=== PATIENT | male | born 1940 | race Caucasian/White ===

== ENCOUNTER 2016-06-11 13:41 | Inpatient (IN) | payer MEDICARE, BC ==
[2016-06-11] MEDS ORDERED: IBUPROFEN 600 MG TABLET PO ONE (14:38)
--- NOTE | 2016-06-11 14:39 | ER Document Report ---
ED Fall - General Chief Complaint: Fall Injury Stated Complaint: FELL/LEG PAIN Time seen by provider: 14:38 Mode of Arrival: Wheelchair Information source: Relative - TRAVEL OUTSIDE OF THE [place] IN LAST 30 DAYS: No - HPI Patient complains to provider of: slip and fall. left hip pain Occurred: Just prior to arrival Where: Home Context: Slipped Associated symptoms: None Location of injury/pain: Hip Quality of pain: Achy Severity: Moderate Pain Level: 3 Notes: Patient is a 76 y/o male - Related data Allergies/Adverse Reactions: codeine [Codeine] Allergy (Intermediate, Verified 06/11/16 13:57) severe N&V morphine [Morphine] Allergy (Intermediate, Verified 06/11/16 13:57) Hallucinations Past Medical History - Social History Patient has suicidal ideation: No Patient has homicidal ideation: No - Past Medical History Cardiac Medical History: Reports: Hx Hypertension - meds x 4 years Denies: Hx Coronary Artery Disease, Hx Heart Attack Pulmonary Medical History: Denies: Hx Asthma, Hx Bronchitis, Hx COPD, Hx Pneumonia Neurological Medical History: Denies: Hx Cerebrovascular Accident, Hx Seizures Renal/ Medical History: Denies: Hx Peritoneal Dialysis Musculoskeltal Medical History: Reports Hx Arthritis - back Past Surgical History: Reports: Hx Pacemaker - 2008 - Immunizations Hx Diphtheria, Pertussis, Tetanus Vaccination: Yes - unsure of date Physical Exam - Vital signs Vitals: Pulse Resp BP Pulse Ox 64 18 93/62 L 95 06/11/16 13:55 06/11/16 13:55 06/11/16 13:55 06/11/16 13:55 Course - Vital Signs Vital signs: Temp Pulse Resp BP Pulse Ox 64 18 93/62 L 95 06/11/16 13:55 06/11/16 13:55 06/11/16 13:55 06/11/16 13:55
--- NOTE | 2016-06-11 15:01 | ER Document Report ---
ED Medical Screen (RME) - General Chief Complaint: Fall Injury Stated Complaint: FELL/LEG PAIN Time seen by provider: 15:01 Mode of Arrival: Wheelchair Information source: Relative TRAVEL OUTSIDE OF THE [place] IN LAST 30 DAYS: No - HPI Patient complains to provider of: slip and fall at home, left hip pain Onset: Just prior to arrival Onset/Duration: Sudden Severity: Moderate Exacerbated by: Movement Similar symptoms previously: No Recently seen / treated by doctor: No - Related Data Allergies/Adverse Reactions: codeine [Codeine] Allergy (Intermediate, Verified 06/11/16 13:57) severe N&V morphine [Morphine] Allergy (Intermediate, Verified 06/11/16 13:57) Hallucinations Past Medical History - Social History Chew tobacco use (# tins/day): No Frequency of alcohol use: None Drug Abuse: None - Past Medical History Cardiac Medical History: Reports: Hx Hypertension - meds x 4 years Denies: Hx Coronary Artery Disease, Hx Heart Attack Pulmonary Medical History: Denies: Hx Asthma, Hx Bronchitis, Hx COPD, Hx Pneumonia Neurological Medical History: Denies: Hx Cerebrovascular Accident, Hx Seizures Renal/ Medical History: Denies: Hx Peritoneal Dialysis Musculoskeltal Medical History: Reports Hx Arthritis - back Surgical Hx: Negative Past Surgical History: Reports: Hx Pacemaker - 2008 - Immunizations Hx Diphtheria, Pertussis, Tetanus Vaccination: Yes - unsure of date Physical Exam - Vital signs Vitals: Pulse Resp BP Pulse Ox 64 18 93/62 L 95 06/11/16 13:55 06/11/16 13:55 06/11/16 13:55 06/11/16 13:55 Course - Vital Signs Vital signs: Temp Pulse Resp BP Pulse Ox 64 18 93/62 L 95 06/11/16 13:55 06/11/16 13:55 06/11/16 13:55 06/11/16 13:55
--- NOTE | 2016-06-11 15:07 | ER Document Report ---
ED Fall - General Chief Complaint: Fall Injury Stated Complaint: FELL/LEG PAIN Mode of Arrival: Wheelchair Information source: Relative Notes: The patient is a 76-year-old male, past medical history dementia, HTN, hypothyroidism, presents after he slipped and fell yesterday and then landed on his left hip. He is having hip pain and unable to bear weight. His is unsure if he hit his head, but the patient denies headache. According to the , the patient's mental status is at baseline. Denies numbness, tingling, neck pain, chest pain, shortness of breath, open wounds or back pain. TRAVEL OUTSIDE OF THE [place] IN LAST 30 DAYS: No - Related data Allergies/Adverse Reactions: codeine [Codeine] Allergy (Intermediate, Verified 06/11/16 13:57) severe N&V morphine [Morphine] Allergy (Intermediate, Verified 06/11/16 13:57) Hallucinations Past Medical History - General Information source: Relative - Social History Smoking Status: Never Smoker Chew tobacco use (# tins/day): No Frequency of alcohol use: None Drug Abuse: None Family History: Reviewed & Not Pertinent Patient has suicidal ideation: No Patient has homicidal ideation: No - Past Medical History Cardiac Medical History: Reports: Hx Hypertension - meds x 4 years Denies: Hx Coronary Artery Disease, Hx Heart Attack Pulmonary Medical History: Denies: Hx Asthma, Hx Bronchitis, Hx COPD, Hx Pneumonia Neurological Medical History: Denies: Hx Cerebrovascular Accident, Hx Seizures Renal/ Medical History: Denies: Hx Peritoneal Dialysis Musculoskeltal Medical History: Reports Hx Arthritis - back Surgical Hx: Negative Past Surgical History: Reports: Hx Pacemaker - 2008 - Immunizations Hx Diphtheria, Pertussis, Tetanus Vaccination: Yes - unsure of date Review of Systems - Review of Systems Notes: REVIEW OF SYSTEMS: CONSTITUTIONAL: -fevers, -chills EENT: -eye pain, -difficulty swallowing, -nasal congestion CARDIOVASCULAR:-chest pain, -syncope. RESPIRATORY: -cough, -SOB GASTROINTESTINAL: -abdominal pain, - nausea, -vomiting, -diarrhea GENITOURINARY: -dysuria, -hematuria MUSCULOSKELETAL: -back pain, -neck pain, +left hip pain SKIN: -rash or skin lesions. HEMATOLOGIC: -easy bruising or bleeding. LYMPHATIC: -swollen, enlarged glands. NEUROLOGICAL: -altered mental status or loss of consciousness, -headache, - neurologic symptoms PSYCHIATRIC: -anxiety, -depression. ALL OTHER SYSTEMS REVIEWED AND NEGATIVE. Physical Exam - Vital signs Vitals: Pulse Resp BP Pulse Ox 64 18 93/62 L 95 06/11/16 13:55 06/11/16 13:55 06/11/16 13:55 06/11/16 13:55 - Notes Notes: PHYSICAL EXAMINATION: GENERAL: Well-appearing, well-nourished and in no acute distress. HEAD: Atraumatic, normocephalic. EYES: Pupils equal round and reactive to light, extraocular movements intact, sclera anicteric, conjunctiva are normal. ENT: nares patent, oropharynx clear without exudates. Moist mucous membranes. NECK: Normal range of motion, supple without lymphadenopathy LUNGS: Breath sounds clear to auscultation bilaterally and equal. No wheezes rales or rhonchi. HEART: Regular rate and rhythm without murmurs ABDOMEN: Soft, nontender, normoactive bowel sounds. No guarding, no rebound. No masses appreciated. EXTREMITIES: Tenderness over left lateral hip, painful ROM, strong distal pulses and no sensory changes. No pitting or edema. No cyanosis. NEUROLOGICAL: Cranial nerves grossly intact. Normal speech, normal gait. Normal sensory, motor, and reflex exams. PSYCH: Normal mood, normal affect. SKIN: Warm, Dry, normal turgor, no rashes or lesions noted. Course - Re-evaluation Re-evalutation: 06/11/16 15:42 X-ray shows left subcapital hip fracture, which may be chronic. According to family, patient has never had a hip fracture in the past and was able to ambulate prior to the fall yesterday. Suspect that this fracture is acute in nature. Spoke to Dr. James and recommends admission to medicine for pre-op clearance and then patient will require surgery. Pain is under control at this time. 06/11/16 15:[address] Elkins and he has accepted patient to Inpatient Tele. - Vital Signs Vital signs: Temp Pulse Resp BP Pulse Ox 64 18 93/62 L 95 06/11/16 13:55 06/11/16 13:55 06/11/16 13:55 06/11/16 13:55 - Laboratory Result Diagrams: 06/11/16 15:41 06/11/16 15:41 Laboratory results interpreted by me: 06/11/16 06/11/16 06/11/16 15:41 15:41 16:45 WBC 13.8 H RBC 3.44 L Hgb 10.7 L Hct 31.7 L RDW 14.3 H Absolute Neutrophils 10.8 H BUN 42 H Creatinine 1.41 H Est GFR ( Amer) 59 L Est GFR (Non-Af Amer) 49 L Total Bilirubin 1.4 H Urine Protein 100 H Urine Blood LARGE H - Diagnostic Test Radiology reviewed: Image reviewed, Reports reviewed Radiology results interpreted by me: Hip x-ray: Left subcapital femur fracture CT Head: NAD, chronic changes Discharge - Discharge Clinical Impression: Subcapital fracture of left hip Condition: Stable Disposition: ADMITTED INPATIENT Admitting Provider: Hospitalist - [facility] Admitted: Telemetry Referrals: LAUREN DEL ANGEL MD [Primary Care Provider] - Follow up as needed
[2016-06-11] MEDS ORDERED: NORMAL SALINE 1000 ML 1,000 ML IV ONE (15:52)
[2016-06-11 15:53] LABS: ABSOLUTE EOSINOPHILS # (AUTO) 0.1 10^3/uL (0.0-0.6); ABSOLUTE LYMPHOCYTES (AUTO) 1.9 10^3/uL (0.5-4.7); ABSOLUTE NEUT (AUTO) 10.8 10^3/uL (1.7-8.2); BASOPHILS % (AUTO) 0.3 % (0-2); EOSINOPHILS % (AUTO) 0.7 % (0-6); HEMATOCRIT 31.7 % (37.9-51.0); HEMOGLOBIN 10.7 g/dL (13.5-17.0); HGB HCT DIFFERENCE 0.4; LYMPHOCYTES % (AUTO) 13.8 % (13-45); MEAN CORPUSCULAR HEMOGLOBIN 31.2 pg (27.0-33.4); MEAN CORPUSCULAR HGB CONC 33.9 g/dL (32.0-36.0); MEAN CORPUSCULAR VOLUME 92 fl (80-97); MONOCYTES % (AUTO) 7.2 % (3-13); RED BLOOD COUNT 3.44 10^6/uL (4.35-5.55); RED CELL DISTRIBUTION WIDTH 14.3 % (11.5-14.0); WHITE BLOOD COUNT 13.8 10^3/uL (4.0-10.5)
[2016-06-11 16:03] LABS: PROTHROMBIN TIME 14.2 SEC (11.4-15.4)
[2016-06-11 16:14] LABS: ALANINE AMINOTRANSFERASE 28 U/L (21-72); ALBUMIN 3.6 g/dL (3.5-5.0); ALKALINE PHOSPHATASE 80 U/L (38-126); ANION GAP 13 (5-19); ASPARTATE AMINO TRANSFERASE 25 U/L (17-59); BILIRUBIN,DIRECT 0.3 mg/dL (0.0-0.4); BILIRUBIN,TOTAL 1.4 mg/dL (0.2-1.3); BLOOD UREA NITROGEN 42 mg/dL (7-20); CALCIUM 9.6 mg/dL (8.4-10.2); CARBON DIOXIDE 27 mmol/L (22-30); CHLORIDE 104 mmol/L (98-107); CREATININE RESULT 1.41 mg/dL (0.52-1.25); GLUCOSE 103 mg/dL (75-110); POTASSIUM 4.3 mmol/L (3.6-5.0); SODIUM 143.7 mmol/L (137-145); TOTAL PROTEIN 7.3 g/dL (6.3-8.2)
[2016-06-11] MEDS ORDERED: HYDRALAZINE HCL INJ/PF 20 MG/1 ML SDV IV PRN (16:31)
[2016-06-11] MEDS ORDERED: ONDANSETRON HCL INJ/PF 4 MG/2 ML SDV IV PRN (16:32)
[2016-06-11] MEDS ORDERED: ACETAMINOPHEN 325 MG TABLET PO PRN (16:32)
[2016-06-11] MEDS ORDERED: ACETAMINOPHEN 650 MG SUPP.RECT PR PRN (16:32)
[2016-06-11] MEDS ORDERED: HALOPERIDOL LACTATE INJ 5 MG/1 ML VIAL IM ONE (16:45)
[2016-06-11] MEDS ORDERED: HALOPERIDOL LACTATE INJ 5 MG/1 ML VIAL ONE (16:47)
--- NOTE | 2016-06-11 16:49 | PDOC H&P ---
History of Present Illness Admission Date/PCP: LAUREN DEL ANGEL MD Patient complains of: Left hip pain History of Present Illness: JOSH AMES is a 76 year old male with past medical history of dementia, hypothyroidism, hypertension presents with family to the emergency department with left hip pain. Patient sustained a fall 24 hours prior to presentation. He has ambulatory dysfunction as a result of advanced dementia. In fact his family was taking him today to check him in to [facility] for long-term care of his dementia. Medications listed below have not been verified at the time of this documentation. Past Medical History Cardiac Medical History: Reports: Hypertension - meds x 4 years, Other - Bradycardia requiring pacemaker Denies: Coronary Artery Disease, Myocardial Infarction Pulmonary Medical History: Denies: Asthma, Bronchitis, Chronic Obstructive Pulmonary Disease (COPD), Pneumonia Neurological Medical History: Denies: Seizures Endocrine Medical History: Reports: Hypothyroidism Renal/ Medical History: Reports: Other - BPH Musculoskeltal Medical History: Reports: Arthritis - back Hematology: Reports: Other - B-12 deficiency Denies: Anemia Past Surgical History Past Surgical History: Reports: Cholecystectomy, Pacemaker - 2008, Other - Back surgery, prostate surgery Social History Information Source: Relative Lives with: Family Smoking Status: Former Smoker Frequency of Alcohol Use: None Hx Recreational Drug Use: No Hx Prescription Drug Abuse: No - Advance Directive Resuscitation Status: Do Not Resuscitate Surrogate healthcare decision maker:: Family History Family History: DM, Hypertension, Malignancy Parental Family History Reviewed: Yes Children Family History Reviewed: Yes Sibling(s) Family History Reviewed.: Yes Medication/Allergy Allergies/Adverse Reactions: codeine [Codeine] Allergy (Intermediate, Verified 06/11/16 13:57) severe N&V morphine [Morphine] Allergy (Intermediate, Verified 06/11/16 13:57) Hallucinations Review of Systems ROS unobtainable: Due to mental status Physical Exam Vital Signs: Temp Pulse Resp BP Pulse Ox 64 18 93/62 L 95 06/11/16 13:55 06/11/16 13:55 06/11/16 13:55 06/11/16 13:55 Intake & Output 06/10/16 06/11/16 06/12/16 06:59 06:59 06:59 Weight 72.3 kg PHYSICAL EXAM: GENERAL: Appears well, no acute distress HEENT: Normocephalic, no scleral icterus, conjunctiva clear, EOEM intact, PERRLA , moist mucous membranes NECK: trachea midline, no thyromegally RESPIRATORY: Clear to auscultation, no wheezes/rhonchi CARDIAC: Regular rate and rhythm, no murmur/kamala/rub ABDOMEN: Soft, no distension, no tenderness, no guarding, normal bowel sounds, negative Kaplan sign RECTAL: deferred : deferred EXTREMITIES: No edema, cyanosis, clubbing MUSCULOSKELETAL: No joint swelling or deformity VASCULAR: normal peripheral pulses NEUROLOGIC: Disoriented, cranial nerves grossly intact, 5/5 strength in all extremities, tactile sensation intact in all extremities SKIN: No rash, no wounds, no worrisome skin lesions Results Laboratory Results: 06/11/16 15:41 06/11/16 15:41 06/11/16 06/11/16 15:41 15:41 WBC 13.8 H RBC 3.44 L Hgb 10.7 L Hct 31.7 L MCV 92 MCH 31.2 MCHC 33.9 RDW 14.3 H Plt Count 307 Seg Neutrophils % 78.0 Lymphocytes % 13.8 Monocytes % 7.2 Eosinophils % 0.7 Basophils % 0.3 Absolute Neutrophils 10.8 H Absolute Lymphocytes 1.9 Absolute Monocytes 1.0 Absolute Eosinophils 0.1 Absolute Basophils 0.0 Sodium 143.7 Potassium 4.3 Chloride 104 Carbon Dioxide 27 Anion Gap 13 BUN 42 H Creatinine 1.41 H Est GFR ( Amer) 59 L Est GFR (Non-Af Amer) 49 L Glucose 103 Calcium 9.6 Total Bilirubin 1.4 H AST 25 ALT 28 Alkaline Phosphatase 80 Total Protein 7.3 Albumin 3.6 Impressions: Hip X-Ray 06/11/16 14:37 IMPRESSION: Subcapital left hip fracture which appears chronic. Clinical correlation is needed. Chest X-Ray 06/11/16 14:58 IMPRESSION: NO ACUTE RADIOGRAPHIC FINDING IN THE CHEST. Head CT 06/11/16 15:03 IMPRESSION: CHRONIC CHANGES OF ATROPHY AND MICROVASCULAR ISCHEMIA. NO ACUTE PROCESS. Assessment & Plan - Diagnosis (1) Subcapital fracture of left hip Is this a current diagnosis for this admission?: YesPlan: Admit patient to hospital. Consult Dr. James of orthopedics. Patient is medically cleared for surgery. Given age and comorbid conditions he is moderate surgical risk. Physical therapy to evaluate based on orthopedic recommendations postoperatively. (2) Dementia Is this a current diagnosis for this admission?: YesPlan: Continue supportive care. Family was planning to check patient in to [facility] for long-term care on 06/11/2016 but he is being hospitalized for hip fracture. (3) Hypothyroid Is this a current diagnosis for this admission?: YesPlan: Resume Synthroid once able to take oral medications. Check TSH. (4) Hypertension Is this a current diagnosis for this admission?: YesPlan: Hold oral medications for now. When necessary IV hydralazine. (5) BPH (benign prostatic hyperplasia) Is this a current diagnosis for this admission?: YesPlan: Hold oral medications for now. Patient having Diaz catheter placed in the emergency department. (6) Pacemaker Is this a current diagnosis for this admission?: Yes (7) Vitamin B 12 deficiency Is this a current diagnosis for this admission?: YesPlan: Patient is on monthly B-12 injections. He will need an injection ejection on . (8) Do not resuscitate Is this a current diagnosis for this admission?: Yes - Time Time Spent: Greater than 70 Minutes Anticipated discharge: Acute Rehab
[2016-06-11 17:09] LABS: APPEARANCE,URINE SLIGHTLY-CLOUDY; BILIRUBIN,URINE NEGATIVE (NEGATIVE); GLUCOSE, URINE NEGATIVE (NEGATIVE); KETONES,URINE NEGATIVE (NEGATIVE); LEUKOCYTE ESTERASE,URINE NEGATIVE (NEGATIVE); NITRITE,URINE NEGATIVE (NEGATIVE); PROTEIN,URINE 100 mg/dL (NEGATIVE); URINE SPECIFIC GRAVITY 1.015; UROBILINOGEN,URINE NEGATIVE mg/dL (<2.0)
[2016-06-11] MEDS ORDERED: CEFTRIAXONE 1 GM/D5W RTU 1 GM/50 ML RTUPB IV ONE (19:00)
[2016-06-11] MEDS: DEXTROSE 5%-1/2 NORMAL SALINE 1,000 ML IV PRN (19:07)
[2016-06-11] MEDS: HYDROMORPHONE HCL INJ/PF 2 MG/ML AMPULE IV PRN ×2 (19:07→23:19)
--- NOTE | 2016-06-11 19:37 | EKG REPORT ---
SEVERITY:- OTHERWISE NORMAL ECG - SINUS RHYTHM BORDERLINE LEFT AXIS DEVIATION : Confirmed by: Laura Riojas MD 11-Jun-2016 19:36:37
[2016-06-11] MEDS: HEPARIN SOD (PORCINE) 5,000 UNIT/ML 1 ML SYRINGE SUBCUT SCH (21:11)
[2016-06-12] MEDS: DEXTROSE 5%-1/2 NORMAL SALINE 1,000 ML IV PRN (04:32)
[2016-06-12] MEDS: HYDROMORPHONE HCL INJ/PF 2 MG/ML AMPULE IV PRN ×3 (04:32→18:01)
[2016-06-12] MEDS: HEPARIN SOD (PORCINE) 5,000 UNIT/ML 1 ML SYRINGE SUBCUT SCH ×3 (05:05→23:22)
[2016-06-12 07:07] LABS: ABSOLUTE BASOPHILS # (AUTO) 0.1 10^3/uL (0.0-0.2); ABSOLUTE EOSINOPHILS # (AUTO) 0.3 10^3/uL (0.0-0.6); ABSOLUTE LYMPHOCYTES (AUTO) 1.8 10^3/uL (0.5-4.7); ABSOLUTE MONOCYTES (AUTO) 0.7 10^3/uL (0.1-1.4); ABSOLUTE NEUT (AUTO) 9.4 10^3/uL (1.7-8.2); BASOPHILS % (AUTO) 0.6 % (0-2); EOSINOPHILS % (AUTO) 2.3 % (0-6); HEMATOCRIT 28.6 % (37.9-51.0); HGB HCT DIFFERENCE 1.4; LYMPHOCYTES % (AUTO) 14.8 % (13-45); MEAN CORPUSCULAR HEMOGLOBIN 32.2 pg (27.0-33.4); MEAN CORPUSCULAR HGB CONC 35.1 g/dL (32.0-36.0); MEAN CORPUSCULAR VOLUME 92 fl (80-97); MONOCYTES % (AUTO) 5.9 % (3-13); RED BLOOD COUNT 3.11 10^6/uL (4.35-5.55); RED CELL DISTRIBUTION WIDTH 14.5 % (11.5-14.0); SEGMENTED NEUTROPHILS % (AUTO) 76.4 % (42-78); WHITE BLOOD COUNT 12.3 10^3/uL (4.0-10.5)
[2016-06-12 07:29] LABS: ANION GAP 11 (5-19); BLOOD UREA NITROGEN 36 mg/dL (7-20); CALCIUM 9.2 mg/dL (8.4-10.2); CARBON DIOXIDE 26 mmol/L (22-30); CHLORIDE 107 mmol/L (98-107); CREATININE RESULT 1.13 mg/dL (0.52-1.25); GLUCOSE 126 mg/dL (75-110); POTASSIUM 4.3 mmol/L (3.6-5.0); SODIUM 143.8 mmol/L (137-145)
[2016-06-12] MEDS ORDERED: PHENYLEPHRINE HCL INJ/PF 10 MG/1 ML SDV ONE (07:50)
[2016-06-12] MEDS ORDERED: (PENDING PHARMACY ID) (Atenolol [Tenormin] 25 MG) PO SCH (10:00)
[2016-06-12] MEDS ORDERED: DONEPEZIL HCL PO SCH (10:00)
[2016-06-12] MEDS: LEVOTHYROXINE SODIUM 0.075 MG TABLET PO SCH (12:25)
[2016-06-12] MEDS: BENAZEPRIL HCL 20 MG TABLET PO SCH (12:25)
[2016-06-12] MEDS: CEFTRIAXONE 1 GM/D5W RTU 1 GM/50 ML RTUPB IV SCH (12:25)
[2016-06-12] MEDS: ATENOLOL 50 MG TABLET PO SCH (12:25)
[2016-06-12] MEDS: DONEPEZIL HCL 5 MG TABLET PO SCH (12:25)
[2016-06-12] MEDS: FINASTERIDE 5 MG TABLET PO SCH (12:25)
--- NOTE | 2016-06-12 16:24 | PDOC PROGRESS REPORT ---
Subjective Progress Note for:: 06/12/16 Subjective:: No new issues reported by nursing staff. Patient remains confused, but this is his baseline according to his who is at bedside. I cannot obtain review of systems from patient secondary to dementia. Physical Exam Vital Signs: Temp Pulse Resp BP Pulse Ox 97.8 F 70 20 142/73 H 96 06/12/16 11:23 06/12/16 11:23 06/12/16 08:00 06/12/16 11:23 06/12/16 11:23 Intake & Output 06/11/16 06/12/16 06/13/16 06:59 06:59 06:59 Intake Total 800 Output Total 400 Balance 400 Weight 70.9 kg GENERAL: No acute distress HEENT: Conjunctiva clear, nonicteric, moist mucous membranes, no JVD, midline trachea RESPIRATORY: Clear to auscultation bilaterally, no wheezes, no rhonchi CARDIAC: Regular rate and rhythm, no murmurs/gallops/rubs ABDOMEN: Soft, nondistended, nontender, positive bowel sounds, no rebound, no guarding EXTREMETIES: No edema, cyanosis, clubbing NEUROLOGIC: Alert, oriented to person only, CN's grossly intact, no focal deficits SKIN: No rash, wounds Results Laboratory Results: 06/12/16 06:49 06/12/16 06:49 06/11/16 06/12/16 06/12/16 16:45 06:49 06:49 WBC 12.3 H RBC 3.11 L Hgb 10.0 L Hct 28.6 L MCV 92 MCH 32.2 MCHC 35.1 RDW 14.5 H Plt Count 280 Seg Neutrophils % 76.4 Lymphocytes % 14.8 Monocytes % 5.9 Eosinophils % 2.3 Basophils % 0.6 Absolute Neutrophils 9.4 H Absolute Lymphocytes 1.8 Absolute Monocytes 0.7 Absolute Eosinophils 0.3 Absolute Basophils 0.1 Sodium 143.8 Potassium 4.3 Chloride 107 Carbon Dioxide 26 Anion Gap 11 BUN 36 H Creatinine 1.13 Est GFR ( Amer) > 60 Est GFR (Non-Af Amer) > 60 Glucose 126 H Calcium 9.2 Urine Color YELLOW Urine Appearance SLIGHTLY-CLOUDY Urine pH 5.0 Ur Specific Keaton 1.015 Urine Protein 100 H Urine Glucose (UA) NEGATIVE Urine Ketones NEGATIVE Urine Blood LARGE H Urine Nitrite NEGATIVE Ur Leukocyte Esterase NEGATIVE Urine WBC (Auto) 6 Urine RBC (Auto) 176 Impressions: Hip X-Ray 06/11/16 14:37 IMPRESSION: Subcapital left hip fracture which appears chronic. Clinical correlation is needed. Chest X-Ray 06/11/16 14:58 IMPRESSION: NO ACUTE RADIOGRAPHIC FINDING IN THE CHEST. Head CT 06/11/16 15:03 IMPRESSION: CHRONIC CHANGES OF ATROPHY AND MICROVASCULAR ISCHEMIA. NO ACUTE PROCESS. Assessment & Plan - Diagnosis (1) Subcapital fracture of left hip Is this a current diagnosis for this admission?: YesPlan: Dr. James of orthopedics planning ORIF. Awaiting echocardiogram per recommendation of anesthesiology for perioperative risk assessment. Patient is otherwise medically cleared for surgery. Given age and comorbid conditions he is moderate surgical risk. Physical therapy to evaluate based on orthopedic recommendations postoperatively. (2) Dementia Is this a current diagnosis for this admission?: YesPlan: Continue supportive care. Family was planning to check patient in to [facility] for long-term care on 06/11/2016 but he is being hospitalized for hip fracture. (3) Hypothyroid Is this a current diagnosis for this admission?: YesPlan: Increase levothyroxine to 75 g daily. Repeat TSH in 3 weeks. (4) Hypertension Is this a current diagnosis for this admission?: YesPlan: Resume atenolol and Lotensin and previous outpatient doses. (5) BPH (benign prostatic hyperplasia) Is this a current diagnosis for this admission?: YesPlan: Continue Proscar and Cardura. (6) Pacemaker Is this a current diagnosis for this admission?: Yes (7) Vitamin B 12 deficiency Is this a current diagnosis for this admission?: YesPlan: Patient is on monthly B-12 injections. He will need an injection ejection on . (8) Do not resuscitate Is this a current diagnosis for this admission?: Yes - Time Time Spent with patient: 25-34 minutes Anticipated discharge: SNF
[2016-06-12] MEDS ORDERED: DEXTROSE 5%-1/2 NORMAL SALINE 1,000 ML IV ONE (18:15)
[2016-06-12] MEDS ORDERED: BUPIVACAINE INJ/PF LIPOSOME/PF 266 MG/20 ML SDV ONE (18:25)
[2016-06-12] MEDS ORDERED: THROMBIN (BOVINE) 5000 UNIT EPITAXIS KIT ONE (18:25)
--- NOTE | 2016-06-12 18:59 | XCELERA REPORT ---
[address] [address] Transthoracic Echocardiogram Report Name: JOSH AMES Age: 76 yrs Gender: Male : 1940 Patient Status: Inpatient Patient Location: [id number] Study Date: 06/12/2016 10:36 AM Height: 69 in Weight: 156 lb BSA: 1.9 m2 Procedure: A complete two-dimensional transthoracic echocardiogram was performed (2D, M-mode, spectral and color flow Doppler). The study was technically difficult with many images being suboptimal in quality. Reason For Study: bradycardia, preop Ordering Physician: MARGARITA HOBBS Performed By: Tisha Ott Interpretation Summary The left ventricular ejection fraction is normal. Doppler measurements suggest impaired left ventricular relaxation, which is associated with grade I/IV or mild diastolic dysfunction There is borderline concentric left ventricular hypertrophy. The left ventricle is grossly normal size. Wall motion cannot be accurately commented on, but no definite regional wall motion abnormalities noted. The right ventricular systolic function is normal. The left atrial size is normal. The right atrium is normal in size There is a trace amount of mitral regurgitation There is no mitral valve stenosis. No aortic regurgitation is present. There is no aortic valve stenosis There is a trace to mild amount of tricuspid regurgitation There is mild pulmonary hypertension by echo Right ventricular systolic pressure is estimated to be elevated at 30- 40mmHg. The aortic root is not well visualized but is probably normal size. The inferior vena cava was not well visualized There is no pericardial effusion. MMode/2D Measurements \T\ Calculations RVDd: 2.8 cm LVIDd: 4.7 cm FS: 36.8 % Ao root diam: 3.9 cm IVSd: 0.76 cm LVIDs: 3.0 cm EDV(Teich): 103.9 ml LVPWd: 0.93 cm ESV(Teich): 34.6 ml Ao root area: 11.9 cm2 EF(Teich): 66.7 % LA dimension: 2.9 cm LVOT diam: 2.3 cm LVOT area: 4.3 cm2 Doppler Measurements \T\ Calculations MV E max jeffry: MV P1/2t max jeffry: Ao V2 max: LV V1 max P.7 cm/sec 60.7 cm/sec 156.9 cm/sec 7.0 mmHg MV A max jeffry: MV P1/2t: 52.2 msec Ao max PG: LV V1 max: 80.0 cm/sec MVA(P1/2t): 4.2 cm2 9.8 mmHg 132.3 cm/sec MV E/A: 0.75 MV dec slope: RITCHIE(V,D): 3.7 cm2 340.8 cm/sec2 PA V2 max: TR max jeffry: 129.8 cm/sec 281.1 cm/sec PA max PG: TR max P.6 mmHg 6.7 mmHg Left Ventricle The left ventricle is grossly normal size. There is borderline concentric left ventricular hypertrophy. The left ventricular ejection fraction is normal. Doppler measurements suggest impaired left ventricular relaxation, which is associated with grade I/IV or mild diastolic dysfunction. Wall motion cannot be accurately commented on, but no definite regional wall motion abnormalities noted. Right Ventricle The right ventricle is grossly normal size. There is normal right ventricular wall thickness. The right ventricular systolic function is normal. Atria The right atrium is normal in size. The left atrial size is normal. Interarterial septum not well visualized and not well dopplered. Cannot comment on ASD/PFO presence. Mitral Valve The mitral valve is grossly normal. There is no mitral valve stenosis. There is a trace amount of mitral regurgitation. Aortic Valve The aortic valve is not well visualized secondary to technical limitations. There is no aortic valve stenosis. No aortic regurgitation is present. Tricuspid Valve The tricuspid valve is not well visualized secondary to technical limitations. There is no tricuspid stenosis. There is a trace to mild amount of tricuspid regurgitation. There is mild pulmonary hypertension by echo. Right ventricular systolic pressure is estimated to be elevated at 30-40mmHg. Pulmonic Valve The pulmonic valve is not well visualized. Great Vessels The aortic root is not well visualized but is probably normal size. The inferior vena cava was not well visualized. Effusions There is no pericardial effusion. : MARGARITA HOBBS > Megan Guerra
--- NOTE | 2016-06-12 19:05 | PDOC CONSULTATION ---
History of Present Illness Admission Date/PCP: 06/11/16 16:33 LAUREN DEL ANGEL MD Patient complains of: Left hip pain History of Present Illness: 76-year-old Alzheimer dementia patient with pain with ambulation the left hip and guarding when attempting weightbearing on the left hip. Patient's dementia did not allow me to question him therefore information was given to me by her daughter who is the power of county attorney. She told me the patient had fell the day before. Denies any previous orthopedic surgery or issues. Denies any other extremity injury. Patient was brought from home to [facility] for evaluation where he was diagnosed with left subcapital femoral neck fracture. Past Medical History Cardiac Medical History: Reports: Hypertension - meds x 4 years, Other - Bradycardia requiring pacemaker Denies: Coronary Artery Disease, Myocardial Infarction Pulmonary Medical History: Denies: Asthma, Bronchitis, Chronic Obstructive Pulmonary Disease (COPD), Pneumonia EENT Medical History: Reports: Other - B-12 deficiency Neurological Medical History: Denies: Seizures Endocrine Medical History: Reports: Hypothyroidism Renal/ Medical History: Reports: Other - BPH Musculoskeltal Medical History: Reports: Arthritis - back Psychiatric Medical History: Denies: Depression Hematology: Reports: Other - B-12 deficiency Denies: Anemia Past Surgical History Past Surgical History: Reports: Cholecystectomy, Pacemaker - 2009, Other - Back surgery, prostate surgery Social History Lives with: Family Smoking Status: Former Smoker Frequency of Alcohol Use: None Hx Recreational Drug Use: No Drugs: None Hx Prescription Drug Abuse: No - Advance Directive Resuscitation Status: Do Not Resuscitate Family History Family History: Reviewed & Not Pertinent Parental Family History Reviewed: No Children Family History Reviewed: Yes Sibling(s) Family History Reviewed.: No Medication/Allergy Home Medications: Amlodipine Besylate [Norvasc 5 mg Tablet] 5 mg PO DAILY 06/11/16 Atenolol [Tenormin] 25 mg PO DAILY 06/11/16 Benazepril HCl [Lotensin 20 mg Tablet] 20 mg PO DAILY 06/11/16 Cyanocobalamin (Vitamin B-12) [Vitamin B-12 Inj 1000 Mcg/1 ml Vial] 1,000 mcg IM .MONTHLY 06/11/16 Donepezil HCl [Aricept] 20 mg PO DAILY 06/11/16 Doxazosin Mesylate [Cardura 4 mg Tablet] 4 mg PO QHS 06/11/16 Finasteride [Proscar 5 mg Tablet] 5 mg PO DAILY 06/11/16 Levothyroxine Sodium [Synthroid 50 Mcg Tablet] 50 mcg PO DAILY 06/11/16 Lorazepam [Ativan 1 mg Tablet] 1 mg PO TIDP PRN 06/11/16 Quetiapine Fumarate [Seroquel 25 mg Tablet] 50 mg PO QHS 06/11/16 Allergies/Adverse Reactions: codeine [Codeine] Allergy (Intermediate, Verified 06/11/16 13:57) severe N&V morphine [Morphine] Allergy (Intermediate, Verified 06/11/16 13:57) Hallucinations Review of Systems ROS unobtainable: Due to mental status Physical Exam Vital Signs: Temp Pulse Resp BP Pulse Ox 36.7 C 82 18 172/94 H 96 06/12/16 18:06 06/12/16 18:06 06/12/16 18:06 06/12/16 18:06 06/12/16 18:06 Intake & Output 06/11/16 06/12/16 06/13/16 06:59 06:59 06:59 Intake Total 800 1800 Output Total 400 500 Balance 400 1300 Weight 70.9 kg General appearance: PRESENT: no acute distress, disheveled Head exam: PRESENT: atraumatic Neurological exam: PRESENT: altered, awake. ABSENT: oriented to person, oriented to place, oriented to time, oriented to situation Psychiatric exam: PRESENT: normal mood Skin exam: PRESENT: intact, normal color. ABSENT: abrasion, erythema, pallor, rash Adult Front & Back Image: 1 - Tender to palpation of her left groin. Limb lengths are grossly equal. Any attempted range of motion of the hip causes pain and the patient guarded and resisted examination. Good capillary refill distally. And respond to stimuli with negative Babinski. Results Laboratory Results: 06/12/16 06:49 06/12/16 06:49 06/12/16 06/12/16 06:49 06:49 WBC 12.3 H RBC 3.11 L Hgb 10.0 L Hct 28.6 L MCV 92 MCH 32.2 MCHC 35.1 RDW 14.5 H Plt Count 280 Seg Neutrophils % 76.4 Lymphocytes % 14.8 Monocytes % 5.9 Eosinophils % 2.3 Basophils % 0.6 Absolute Neutrophils 9.4 H Absolute Lymphocytes 1.8 Absolute Monocytes 0.7 Absolute Eosinophils 0.3 Absolute Basophils 0.1 Sodium 143.8 Potassium 4.3 Chloride 107 Carbon Dioxide 26 Anion Gap 11 BUN 36 H Creatinine 1.13 Est GFR ( Amer) > 60 Est GFR (Non-Af Amer) > 60 Glucose 126 H Calcium 9.2 Impressions: Hip X-Ray 06/11/16 14:37 IMPRESSION: Subcapital left hip fracture which appears chronic. Clinical correlation is needed. Chest X-Ray 06/11/16 14:58 IMPRESSION: NO ACUTE RADIOGRAPHIC FINDING IN THE CHEST. Head CT 06/11/16 15:03 IMPRESSION: CHRONIC CHANGES OF ATROPHY AND MICROVASCULAR ISCHEMIA. NO ACUTE PROCESS. Status: Image reviewed by me Assessment & Plan - Diagnosis (1) Subcapital fracture of left hip Is this a current diagnosis for this admission?: YesPlan: 76-year-old dementia patient with Alzheimer who has a left femoral neck fracture. The fracture is displaced and will be high risk for malunion or nonunion. Discussed with the family the fact the patient would probably be best served with a left hip hemiarthroplasty to allow him to start ambulation day after the surgery. Estimated risk and benefits included dislocation infection and periprosthetic fracture. Discuss other potential complications her medical and not due to surgery to include stroke and heart attack and pneumonia. Also potential DVT and PE. After discussing all the options the family agreed to consent and proceed with surgery. Patient will be admitted to medicine for medical optimization and clearance for surgery. Meantime bedrest and pain control and short acting anticoagulation. Hopefully if cleared we'll proceed with surgery tomorrow.
[2016-06-12] MEDS ORDERED: THROMBIN (BOVINE) 5000 UNIT EPITAXIS KIT TP ONE (19:25)
[2016-06-12] MEDS ORDERED: CEFAZOLIN INJ 1 GM VIAL ONE (19:26)
[2016-06-12] MEDS ORDERED: FENTANYL CITRATE INJ/PF 100 MCG/2 ML AMPUL IV PRN ×3 (19:46)
[2016-06-12] MEDS ORDERED: PROMETHAZINE HCL INJ 25 MG/1 ML VIAL IV PRN (19:46)
[2016-06-12] MEDS ORDERED: DIPHENHYDRAMINE HCL 50 MG/ML VIAL IV PRN (19:46)
[2016-06-12] MEDS ORDERED: PROPOFOL INJ 200 MG/20 ML VIAL IV ONE (19:51)
[2016-06-12] MEDS ORDERED: BUPIVACAINE INJ/PF LIPOSOME/PF 266 MG/20 ML SDV INFIL ONE (20:34)
[2016-06-12] MEDS ORDERED: ACETAMINOPHEN 100 ML IV ONE (20:39)
--- NOTE | 2016-06-12 21:15 | Operative Report ---
Operative Report DATE OF SURGERY: 06/12/16 PREOPERATIVE DIAGNOSIS: Left femoral neck fracture POSTOPERATIVE DIAGNOSIS: Same OPERATION: Left hip hemiarthroplasty SURGEON: ANY BERMEO ANESTHESIA: Spinal TISSUE REMOVED OR ALTERED: Femoral head COMPLICATIONS: None ESTIMATED BLOOD LOSS: 150 mL INTRAOPERATIVE FINDINGS: As above PROCEDURE: Procedure In Detail: Patient was seen and evaluated in the preoperative holding area. The lower extremity was initialized and marked. Patient received 2g of Ancef IV for bacterial prophylaxis. Patient was taken back to the operative room where transferred to the operative table and placed under spinal anesthesia. Once they were adequately anesthetized patient was placed in the lateral position an axillary roll was placed in nonoperative left lower extremity was carefully padded.. A surgical team debriefing was performed ensuring all instrumentation was available, the surgical procedure was discussed with possible concerns reviewed. The upper extremity was prepped with chlor prep draped in a sterile fashion. A timeout was done identifying correct patient, procedure and left lower extremity. everyone in attendance agree with this and verbalized no concerns. A posterior skin incision was made just posterior to the greater trochanter. Dissection was done down to the gluteus minh and iliotibial band fascia this was split in line with the skin incision. Any peripheral vasculature was carefully coagulated. A Charley retractor was placed after palpation of the sciatic nerve and the sciatic nerve was safely retracted from the wound throughout the entirety of the case. I then identified the external rotators with the use of a Bovie this was carefully elevated off along with underlying capsule from the neck in a T-shaped capsulotomy was made just superior to the piriformis. This was then tagged. The femoral neck was identified and approximately 1 fingerbreadth above the lesser trochanter a freshening cut was made. Any excess bone remaining was carefully removed. I then used the corkscrew to remove the femoral head from the acetabulum which was then measured on the back table. The excess bone was removed and removed the scopes irrigated with normal saline. I then trial the femoral head according to what was measured on the back table and got good fit within the acetabulum. I then turned my attention to femoral preparation. A box osteotome was first used to get laterally along the trochanter. I then used the lateralizing reamer to avoid medialization of the stem and ultimately varus malalignment. I then began broaching with a 0 broach and broached up to a #6 broach which was somewhat countersunk. I then utilized the calcar reamer reamed out the appropriate level. I then broached up to a #7 broach which I got good proximal fit. I began trialing with a #0 neck length and had good stability through flexion, internal rotation and adduction. There is no instability with external rotation. Leg lengths were found to be compatible and equal to the other side. At this point the trial implants were removed. The wound was irrigated with normal saline. I then implanted my appropriate size stem the good peripheral fit and placement at my predetermined broach level. I then implanted the final unipolar head. The hip was reduced once again measures stability and good stability throughout all range of motion with no palpable impingement. Leg lengths were equivalent to the nonoperative side. I then want to get suyapa irrigated the wound with normal saline. Utilizing a #5 FiberWire suture I secured the capsule posteriorly into the trochanter. I then irrigated once again with normal saline. The gluteus minh and tensor fascia reynold was closed with #1 Vicryl and 0 Vicryl suture. I then injected Exparel in multiple locations throughout the subcutaneous tissues, hip wound and the fascia. I then closed the subcutaneous tissues with interrupted 2-0 Vicryl suture. The skin was closed with pamela. A sterile Tegaderm dressing was then placed. Sponge counts, instrument counts and needle counts were correct. Patient was then awoken from anesthesia laid supine at which point her leg lengths were once again checked and found to be equal to the nonoperative extremity. Patient was then transferred to the operating stretcher and placed in an abduction pillow. The was no intraoperative crepitations patient tolerated she will was stable to PACU. Postoperative plan: Patient will be started on DVT prophylaxis. he will begin physical therapy on postop day #1. Implants: Accolade II Size 10, 50 Bipolar Head, +0 Neck Length
[2016-06-12] MEDS ORDERED: KETAMINE HCL INJ 500 MG/10 ML VIAL ONE (21:23)
[2016-06-12] MEDS ORDERED: DEXMEDETOMIDINE INJ 80 MCG/20 ML VIAL IV ONE (21:23)
[2016-06-12] MEDS ORDERED: RINGERS SOLUTION,LACTATED 1,000 ML IV PRN (21:35)
[2016-06-12] MEDS ORDERED: OXYCODONE-ACETAMINOPHEN 5-325 MG TABLET PO PRN ×2 (21:42)
[2016-06-12] MEDS ORDERED: OXYCODONE HCL IR 5 MG TABLET PO PRN (21:50)
[2016-06-12] MEDS: DOXAZOSIN MESYLATE 4 MG TABLET PO SCH (23:17)
[2016-06-12] MEDS: QUETIAPINE FUMARATE 25 MG TABLET PO SCH (23:17)
[2016-06-13] MEDS ORDERED: LORAZEPAM INJ 2 MG/1 ML VIAL IV ONE (01:13)
[2016-06-13] MEDS ORDERED: LORAZEPAM INJ 2 MG/1 ML VIAL ONE (01:22)
[2016-06-13] MEDS ORDERED: HYDROMORPHONE HCL INJ/PF 2 MG/ML AMPULE ONE (01:50)
[2016-06-13] MEDS: HEPARIN SOD (PORCINE) 5,000 UNIT/ML 1 ML SYRINGE SUBCUT SCH (06:01)
[2016-06-13 06:09] LABS: ABSOLUTE EOSINOPHILS # (AUTO) 0.1 10^3/uL (0.0-0.6); ABSOLUTE LYMPHOCYTES (AUTO) 1.4 10^3/uL (0.5-4.7); ABSOLUTE MONOCYTES (AUTO) 0.7 10^3/uL (0.1-1.4); ABSOLUTE NEUT (AUTO) 13.5 10^3/uL (1.7-8.2); BASOPHILS % (AUTO) 0.3 % (0-2); EOSINOPHILS % (AUTO) 0.3 % (0-6); HEMATOCRIT 27.7 % (37.9-51.0); HEMOGLOBIN 9.3 g/dL (13.5-17.0); HGB HCT DIFFERENCE 0.2; MEAN CORPUSCULAR HEMOGLOBIN 30.9 pg (27.0-33.4); MEAN CORPUSCULAR HGB CONC 33.7 g/dL (32.0-36.0); MEAN CORPUSCULAR VOLUME 92 fl (80-97); MONOCYTES % (AUTO) 4.6 % (3-13); RED BLOOD COUNT 3.02 10^6/uL (4.35-5.55); RED CELL DISTRIBUTION WIDTH 14.3 % (11.5-14.0); SEGMENTED NEUTROPHILS % (AUTO) 85.8 % (42-78); WHITE BLOOD COUNT 15.7 10^3/uL (4.0-10.5)
[2016-06-13 06:37] LABS: ANION GAP 11 (5-19); BLOOD UREA NITROGEN 25 mg/dL (7-20); CALCIUM 8.9 mg/dL (8.4-10.2); CARBON DIOXIDE 24 mmol/L (22-30); CHLORIDE 104 mmol/L (98-107); GLUCOSE 98 mg/dL (75-110); POTASSIUM 4.5 mmol/L (3.6-5.0)
[2016-06-13] MEDS ORDERED: RINGERS SOLUTION,LACTATED 1,000 ML IV PRN (10:22)
--- NOTE | 2016-06-13 10:36 | PDOC PROGRESS REPORT ---
Subjective Progress Note for:: 06/13/16 Subjective:: Nursing reports the patient is having hematuria and Diaz catheter. This started after Diaz catheter was inserted in the emergency department. Patient has had poor appetite. He was agitated overnight. I cannot obtain reliable history from patient secondary to advanced dementia. Physical Exam Vital Signs: Temp Pulse Resp BP Pulse Ox 98.6 F 97 18 153/84 H 99 06/13/16 08:00 06/13/16 08:00 06/13/16 08:00 06/13/16 08:00 06/13/16 08:00 Intake & Output 06/12/16 06/13/16 06/14/16 06:59 06:59 06:59 Intake Total 800 6934 Output Total 400 2250 Balance 400 4684 Weight 70.9 kg 70.3 kg GENERAL: No acute distress HEENT: Conjunctiva clear, nonicteric, moist mucous membranes, no JVD, midline trachea RESPIRATORY: Clear to auscultation bilaterally, no wheezes, no rhonchi CARDIAC: Regular rate and rhythm, no murmurs/gallops/rubs ABDOMEN: Soft, nondistended, nontender, positive bowel sounds, no rebound, no guarding EXTREMETIES: No edema, cyanosis, clubbing NEUROLOGIC: Alert, oriented to person only, CN's grossly intact, no focal deficits SKIN: No rash, wounds GENITOURINARY: Diaz catheter in place with ross hematuria noted Results Laboratory Results: 06/13/16 05:36 06/13/16 05:36 06/13/16 06/13/16 05:36 05:36 WBC 15.7 H RBC 3.02 L Hgb 9.3 L Hct 27.7 L MCV 92 MCH 30.9 MCHC 33.7 RDW 14.3 H Plt Count 285 Seg Neutrophils % 85.8 H Lymphocytes % 9.0 L Monocytes % 4.6 Eosinophils % 0.3 Basophils % 0.3 Absolute Neutrophils 13.5 H Absolute Lymphocytes 1.4 Absolute Monocytes 0.7 Absolute Eosinophils 0.1 Absolute Basophils 0.0 Sodium 139.0 Potassium 4.5 Chloride 104 Carbon Dioxide 24 Anion Gap 11 BUN 25 H Creatinine 1.00 Est GFR ( Amer) > 60 Est GFR (Non-Af Amer) > 60 Glucose 98 Calcium 8.9 Impressions: Chest X-Ray 06/11/16 14:58 IMPRESSION: NO ACUTE RADIOGRAPHIC FINDING IN THE CHEST. Head CT 06/11/16 15:03 IMPRESSION: CHRONIC CHANGES OF ATROPHY AND MICROVASCULAR ISCHEMIA. NO ACUTE PROCESS. Fluoroscopy 06/12/16 00:00 IMPRESSION: Please see combined report for performance of procedure and radiologic supervision and interpretation. Hip X-Ray 06/13/16 08:00 IMPRESSION: Left hip hemiarthroplasty. Assessment & Plan - Diagnosis (1) Subcapital fracture of left hip Is this a current diagnosis for this admission?: YesPlan: Status post left hip hemiarthroplasty by Dr. James of orthopedics on 2016. Continue physical therapy. Patient will need to go to long term facility upon discharge. (2) Dementia Is this a current diagnosis for this admission?: YesPlan: Continue supportive care. Family was planning to check patient in to [place] long term facility for long-term care on 06/11/2016 but he is being hospitalized for hip fracture. Patient continues to have poor oral intake take. Continue maintenance IV fluids for now. Continue Aricept. Continue Seroquel for agitation/sundowning. (3) Hypothyroid Is this a current diagnosis for this admission?: YesPlan: Increased levothyroxine to 75 g daily. Repeat TSH in 3 weeks. (4) Hypertension Is this a current diagnosis for this admission?: YesPlan: Continue atenolol and Lotensin. (5) BPH (benign prostatic hyperplasia) Is this a current diagnosis for this admission?: YesPlan: Continue Proscar and Cardura. (6) Pacemaker Is this a current diagnosis for this admission?: Yes (7) Vitamin B 12 deficiency Is this a current diagnosis for this admission?: YesPlan: Patient is on monthly B-12 injections. He will need an injection ejection on . (8) Hematuria Is this a current diagnosis for this admission?: YesPlan: Possibly secondary to traumatic insertion of Diaz catheter through enlarged prostate. Hold subcutaneous heparin. Continue to monitor H&H for stability. (9) Do not resuscitate Is this a current diagnosis for this admission?: Yes - Time Time Spent with patient: 35 or more minutes
[2016-06-13] MEDS: BENAZEPRIL HCL 20 MG TABLET PO SCH (11:18)
[2016-06-13] MEDS: DONEPEZIL HCL 5 MG TABLET PO SCH (11:19)
[2016-06-13] MEDS: FINASTERIDE 5 MG TABLET PO SCH (11:21)
[2016-06-13] MEDS: LEVOTHYROXINE SODIUM 0.075 MG TABLET PO SCH (11:21)
[2016-06-13] MEDS: ATENOLOL 50 MG TABLET PO SCH (11:21)
[2016-06-13] MEDS: CEFTRIAXONE 1 GM/D5W RTU 1 GM/50 ML RTUPB IV SCH (16:50)
[2016-06-13] MEDS: HYDROMORPHONE HCL INJ/PF 2 MG/ML AMPULE IV PRN (16:51)
--- NOTE | 2016-06-13 21:20 | PDOC PROGRESS REPORT ---
Subjective Progress Note for:: 06/13/16 Subjective:: No issues overnight, patient is resting comfortably in bed. Unable to get history due to patient's advance Alzheimer. Physical Exam Vital Signs: Temp Pulse Resp BP Pulse Ox 36.7 C 93 19 160/81 H 95 06/13/16 20:00 06/13/16 20:00 06/13/16 20:00 06/13/16 20:00 06/13/16 20:00 Intake & Output 06/12/16 06/13/16 06/14/16 06:59 06:59 06:59 Intake Total 800 6934 1640 Output Total 400 2250 500 Balance 400 4684 1140 Weight 70.9 kg 70.3 kg Adult Front & Back Image: 1 - Dressing is dry clean and intact. Leg lengths are grossly equal. Abduction pillow is in proper place. Response to stimuli with positive EHL and FHL. Results Laboratory Results: 06/13/16 05:36 06/13/16 05:36 06/13/16 06/13/16 05:36 05:36 WBC 15.7 H RBC 3.02 L Hgb 9.3 L Hct 27.7 L MCV 92 MCH 30.9 MCHC 33.7 RDW 14.3 H Plt Count 285 Seg Neutrophils % 85.8 H Lymphocytes % 9.0 L Monocytes % 4.6 Eosinophils % 0.3 Basophils % 0.3 Absolute Neutrophils 13.5 H Absolute Lymphocytes 1.4 Absolute Monocytes 0.7 Absolute Eosinophils 0.1 Absolute Basophils 0.0 Sodium 139.0 Potassium 4.5 Chloride 104 Carbon Dioxide 24 Anion Gap 11 BUN 25 H Creatinine 1.00 Est GFR ( Amer) > 60 Est GFR (Non-Af Amer) > 60 Glucose 98 Calcium 8.9 Impressions: Chest X-Ray 06/11/16 14:58 IMPRESSION: NO ACUTE RADIOGRAPHIC FINDING IN THE CHEST. Head CT 06/11/16 15:03 IMPRESSION: CHRONIC CHANGES OF ATROPHY AND MICROVASCULAR ISCHEMIA. NO ACUTE PROCESS. Fluoroscopy 06/12/16 00:00 IMPRESSION: Please see combined report for performance of procedure and radiologic supervision and interpretation. Hip X-Ray 06/13/16 08:00 IMPRESSION: Left hip hemiarthroplasty. Assessment & Plan - Diagnosis (1) Subcapital fracture of left hip Is this a current diagnosis for this admission?: Yes - Plan Summary Plan Summary: 76-year-old gentleman who is postop day 1 from left hip hemiarthroplasty. Best tolerated with posterior hip precautions. Continue physical therapy with anticipated [facility] facility at discharge. Continue pain control and DVT prophylaxis. Patient has acute blood loss anemia secondary to acute blood loss from the surgery. borderline H&H. If he lowers any further may recommend blood transfusion.
[2016-06-13] MEDS: DOXAZOSIN MESYLATE 4 MG TABLET PO SCH (22:12)
[2016-06-13] MEDS: QUETIAPINE FUMARATE 25 MG TABLET PO SCH (22:12)
[2016-06-14] MEDS: HYDROMORPHONE HCL INJ/PF 2 MG/ML AMPULE IV PRN ×3 (02:54→18:17)
[2016-06-14 05:27] LABS: ABSOLUTE BASOPHILS # (AUTO) 0.1 10^3/uL (0.0-0.2); ABSOLUTE LYMPHOCYTES (AUTO) 1.7 10^3/uL (0.5-4.7); ABSOLUTE NEUT (AUTO) 11.8 10^3/uL (1.7-8.2); BASOPHILS % (AUTO) 0.8 % (0-2); EOSINOPHILS % (AUTO) 0.1 % (0-6); HEMATOCRIT 26.8 % (37.9-51.0); HGB HCT DIFFERENCE 0.2; LYMPHOCYTES % (AUTO) 11.6 % (13-45); MEAN CORPUSCULAR HEMOGLOBIN 30.9 pg (27.0-33.4); MEAN CORPUSCULAR HGB CONC 33.8 g/dL (32.0-36.0); MEAN CORPUSCULAR VOLUME 92 fl (80-97); MONOCYTES % (AUTO) 7.1 % (3-13); RED BLOOD COUNT 2.92 10^6/uL (4.35-5.55); RED CELL DISTRIBUTION WIDTH 14.1 % (11.5-14.0); SEGMENTED NEUTROPHILS % (AUTO) 80.4 % (42-78); WHITE BLOOD COUNT 14.7 10^3/uL (4.0-10.5)
[2016-06-14 05:54] LABS: ANION GAP 12 (5-19); BLOOD UREA NITROGEN 30 mg/dL (7-20); CALCIUM 8.9 mg/dL (8.4-10.2); CARBON DIOXIDE 23 mmol/L (22-30); CHLORIDE 105 mmol/L (98-107); CREATININE RESULT 1.19 mg/dL (0.52-1.25); GLUCOSE 87 mg/dL (75-110); POTASSIUM 4.3 mmol/L (3.6-5.0); SODIUM 140.4 mmol/L (137-145)
[2016-06-14] MEDS: CEFTRIAXONE 1 GM/D5W RTU 1 GM/50 ML RTUPB IV SCH (10:23)
[2016-06-14] MEDS: LEVOTHYROXINE SODIUM 0.075 MG TABLET PO SCH (10:24)
[2016-06-14] MEDS: DONEPEZIL HCL 5 MG TABLET PO SCH (10:24)
[2016-06-14] MEDS: BENAZEPRIL HCL 20 MG TABLET PO SCH (10:53)
[2016-06-14] MEDS: FINASTERIDE 5 MG TABLET PO SCH (10:53)
[2016-06-14] MEDS: ATENOLOL 50 MG TABLET PO SCH (10:53)
[2016-06-14] MEDS ORDERED: RISPERIDONE 1 MG TABLET PO ONE ×2 (11:30→23:00)
--- NOTE | 2016-06-14 16:45 | PDOC PROGRESS REPORT ---
Subjective Progress Note for:: 06/14/16 Subjective:: Patient is seen on morning rounds. He is presently resting in bed. His is at bedside. He is unable to participate few systems due to his advanced dementia. He has had to be restrained to prevent him from removing his Diaz catheter and IV. He has been unable to participate with physical therapy this morning due to his dementia. Discussed with the difficulties this will place with effectively trying to rehabilitation pending. Discharge planning has been called to assist with long-term placement. Physical Exam Vital Signs: Temp Pulse Resp BP Pulse Ox 98.3 F 76 20 131/72 H 98 06/14/16 12:00 06/14/16 12:00 06/14/16 12:00 06/14/16 12:00 06/14/16 12:00 Intake & Output 06/13/16 06/14/16 06/15/16 06:59 06:59 06:59 Intake Total 6934 2465 Output Total 2250 1000 Balance 4684 1465 Weight 70.3 kg 70.3 kg General appearance: PRESENT: no acute distress, thin, well-developed, well- nourished Head exam: PRESENT: atraumatic, normocephalic Eye exam: PRESENT: conjunctiva pink, EOMI, PERRLA. ABSENT: scleral icterus Ear exam: PRESENT: normal external ear exam Mouth exam: PRESENT: moist, tongue midline Neck exam: ABSENT: carotid bruit, JVD, lymphadenopathy, thyromegaly Respiratory exam: PRESENT: clear to auscultation amari. ABSENT: rales, rhonchi, wheezes Cardiovascular exam: PRESENT: RRR. ABSENT: diastolic murmur, rubs, systolic murmur Pulses: PRESENT: normal dorsalis pedis pul Vascular exam: PRESENT: normal capillary refill GI/Abdominal exam: PRESENT: normal bowel sounds, soft. ABSENT: distended, guarding, mass, organolmegaly, rebound, tenderness Rectal exam: PRESENT: deferred Extremities exam: PRESENT: full ROM. ABSENT: calf tenderness, clubbing, pedal edema Neurological exam: PRESENT: alert, awake, CN II-XII grossly intact. ABSENT: motor sensory deficit Psychiatric exam: PRESENT: agitated, anxious Focused psych exam: PRESENT: restlessness Skin exam: PRESENT: abrasion Results Laboratory Results: 06/14/16 04:32 06/14/16 04:32 06/14/16 06/14/16 04:32 04:32 WBC 14.7 H RBC 2.92 L Hgb 9.0 L Hct 26.8 L MCV 92 MCH 30.9 MCHC 33.8 RDW 14.1 H Plt Count 274 Seg Neutrophils % 80.4 H Lymphocytes % 11.6 L Monocytes % 7.1 Eosinophils % 0.1 Basophils % 0.8 Absolute Neutrophils 11.8 H Absolute Lymphocytes 1.7 Absolute Monocytes 1.0 Absolute Eosinophils 0.0 Absolute Basophils 0.1 Sodium 140.4 Potassium 4.3 Chloride 105 Carbon Dioxide 23 Anion Gap 12 BUN 30 H Creatinine 1.19 Est GFR ( Amer) > 60 Est GFR (Non-Af Amer) 59 L Glucose 87 Calcium 8.9 Impressions: Chest X-Ray 06/11/16 14:58 IMPRESSION: NO ACUTE RADIOGRAPHIC FINDING IN THE CHEST. Head CT 06/11/16 15:03 IMPRESSION: CHRONIC CHANGES OF ATROPHY AND MICROVASCULAR ISCHEMIA. NO ACUTE PROCESS. Fluoroscopy 06/12/16 00:00 IMPRESSION: Please see combined report for performance of procedure and radiologic supervision and interpretation. Hip X-Ray 06/13/16 08:00 IMPRESSION: Left hip hemiarthroplasty. Assessment & Plan - Diagnosis (1) Subcapital fracture of left hip Is this a current diagnosis for this admission?: YesPlan: Patient is postop day 1 from ORIF of left hip with Dr. Erika Kilgore. Rehabilitation will be difficult due to his advanced dementia. His and family is aware. He is awaiting custodial placement family hopes to [facility]. (2) Dementia Is this a current diagnosis for this admission?: YesPlan: Patient's requiring soft restraints to prevent dislodgment of IV and Diaz catheter. Try some Risperdal 1 mg twice a day. He is extremely agitated. (3) Hypertension Is this a current diagnosis for this admission?: Yes (4) BPH (benign prostatic hyperplasia) Is this a current diagnosis for this admission?: YesPlan: Continue flomax and finasteride (5) Hypothyroid Qualifiers: Hypothyroidism type: acquired Qualified Code(s): E03.9 - Hypothyroidism, unspecified Is this a current diagnosis for this admission?: YesPlan: Continue synthroid (6) Do not resuscitate Is this a current diagnosis for this admission?: YesPlan: is his medical decision-maker she wishes DO NOT RESUSCITATE status from her due to his poor quality of life. (7) Hematuria Is this a current diagnosis for this admission?: Yes (8) Pacemaker Is this a current diagnosis for this admission?: Yes - Time Time Spent with patient: 25-34 minutes Critical Time spent with patient: 15-24 minutes Medications reviewed and adjusted accordingly: Yes Anticipated discharge: SNF, Acute Rehab Within: when bed available
[2016-06-14] MEDS: RISPERIDONE 1 MG TABLET PO SCH (18:16)
--- NOTE | 2016-06-14 20:07 | PDOC PROGRESS REPORT ---
Subjective Progress Note for:: 06/14/16 Subjective:: Patient still being combative and worsening of his Alzheimer dementia. Patient due to his combativeness did not participate with physical therapy. Continues to have soft restraints to avoid pulling his IV and Diaz. Physical Exam Vital Signs: Temp Pulse Resp BP Pulse Ox 36.8 C 82 20 131/72 H 98 06/14/16 12:00 06/14/16 14:00 06/14/16 12:00 06/14/16 12:00 06/14/16 12:00 Intake & Output 06/13/16 06/14/16 06/15/16 06:59 06:59 06:59 Intake Total 6934 2465 Output Total 2250 1000 Balance 4684 1465 Weight 70.3 kg 70.3 kg Adult Front & Back Image: 1 - Patient has grossly equal limb lengths. He is wearing the abduction pillow. He moves his toes and ankles to stimuli. Good capillary refill. Dressing was changed and pamela and incision are dry clean and intact Results Laboratory Results: 06/14/16 04:32 06/14/16 04:32 06/14/16 06/14/16 04:32 04:32 WBC 14.7 H RBC 2.92 L Hgb 9.0 L Hct 26.8 L MCV 92 MCH 30.9 MCHC 33.8 RDW 14.1 H Plt Count 274 Seg Neutrophils % 80.4 H Lymphocytes % 11.6 L Monocytes % 7.1 Eosinophils % 0.1 Basophils % 0.8 Absolute Neutrophils 11.8 H Absolute Lymphocytes 1.7 Absolute Monocytes 1.0 Absolute Eosinophils 0.0 Absolute Basophils 0.1 Sodium 140.4 Potassium 4.3 Chloride 105 Carbon Dioxide 23 Anion Gap 12 BUN 30 H Creatinine 1.19 Est GFR ( Amer) > 60 Est GFR (Non-Af Amer) 59 L Glucose 87 Calcium 8.9 Impressions: Chest X-Ray 06/11/16 14:58 IMPRESSION: NO ACUTE RADIOGRAPHIC FINDING IN THE CHEST. Head CT 06/11/16 15:03 IMPRESSION: CHRONIC CHANGES OF ATROPHY AND MICROVASCULAR ISCHEMIA. NO ACUTE PROCESS. Fluoroscopy 06/12/16 00:00 IMPRESSION: Please see combined report for performance of procedure and radiologic supervision and interpretation. Hip X-Ray 06/13/16 08:00 IMPRESSION: Left hip hemiarthroplasty. Assessment & Plan - Diagnosis (1) Subcapital fracture of left hip Is this a current diagnosis for this admission?: Yes - Plan Summary Plan Summary: 76-year-old gentleman postop day 2 from left hip hemiarthroplasty. Patient is likely to be transferred to [place] early next week for long-term jail and rehabilitation. Continue posterior hip precaution. Continue pain control and anticoagulation. H&H stable.
[2016-06-14] MEDS: QUETIAPINE FUMARATE 25 MG TABLET PO SCH (23:08)
[2016-06-14] MEDS: DOXAZOSIN MESYLATE 4 MG TABLET PO SCH (23:08)
[2016-06-15] MEDS: HYDROMORPHONE HCL INJ/PF 2 MG/ML AMPULE IV PRN ×2 (03:21→14:52)
[2016-06-15] MEDS: NORMAL SALINE 1000 ML 1,000 ML IV PRN (14:00)
[2016-06-15] MEDS: CEFTRIAXONE 1 GM/D5W RTU 1 GM/50 ML RTUPB IV SCH (14:01)
[2016-06-15] MEDS: DONEPEZIL HCL 5 MG TABLET PO SCH (14:03)
[2016-06-15] MEDS: ATENOLOL 50 MG TABLET PO SCH (14:04)
[2016-06-15] MEDS: BENAZEPRIL HCL 20 MG TABLET PO SCH (14:04)
[2016-06-15] MEDS: RISPERIDONE 1 MG TABLET PO SCH ×2 (14:04→18:14)
[2016-06-15] MEDS: LEVOTHYROXINE SODIUM 0.075 MG TABLET PO SCH (14:04)
[2016-06-15] MEDS: FINASTERIDE 5 MG TABLET PO SCH (14:05)
[2016-06-15] MEDS: HEPARIN SOD (PORCINE) 5,000 UNIT/ML 1 ML SYRINGE SUBCUT SCH (18:15)
--- NOTE | 2016-06-15 21:06 | PDOC PROGRESS REPORT ---
Subjective Progress Note for:: 06/15/16 Subjective:: Patient continues to have soft tissue restraints. No further issues overnight. Physical Exam Vital Signs: Temp Pulse Resp BP Pulse Ox 98.4 F 64 15 130/60 H 99 06/15/16 20:15 06/15/16 20:15 06/15/16 20:15 06/15/16 20:15 06/15/16 20:15 Intake & Output 06/14/16 06/15/16 06/16/16 06:59 06:59 06:59 Intake Total 2465 4816 200 Output Total 1000 700 600 Balance 1465 4116 -400 Weight 70.3 kg 77 kg Musculoskeletal exam: PRESENT: other - Left hip: Dressing clean/dry/intact. Patient in abduction pillow Minimal thigh swelling. No calf tenderness. Intact plantar flexion/dorsiflexion. No evidence of the limb length inequality. Results Laboratory Results: 06/14/16 04:32 06/14/16 04:32 Impressions: Chest X-Ray 06/11/16 14:58 IMPRESSION: NO ACUTE RADIOGRAPHIC FINDING IN THE CHEST. Head CT 06/11/16 15:03 IMPRESSION: CHRONIC CHANGES OF ATROPHY AND MICROVASCULAR ISCHEMIA. NO ACUTE PROCESS. Fluoroscopy 06/12/16 00:00 IMPRESSION: Please see combined report for performance of procedure and radiologic supervision and interpretation. Hip X-Ray 06/13/16 08:00 IMPRESSION: Left hip hemiarthroplasty. Assessment & Plan - Diagnosis (1) Subcapital fracture of left hip Is this a current diagnosis for this admission?: YesPlan: Status post left femoral neck fracture #1 physical therapy progress and expectations and physical therapy guarded given patient's history of dementia #2 pain control #3 heparin for DVT prophylaxis #4 discharge planning patient will require care home facility
[2016-06-15] MEDS: DOXAZOSIN MESYLATE 4 MG TABLET PO SCH (21:41)
[2016-06-15] MEDS: QUETIAPINE FUMARATE 25 MG TABLET PO SCH (21:41)
[2016-06-16] MEDS: NORMAL SALINE 1000 ML 1,000 ML IV PRN (07:27)
[2016-06-16] MEDS: RISPERIDONE 1 MG TABLET PO SCH ×2 (08:58→17:36)
[2016-06-16] MEDS: BENAZEPRIL HCL 20 MG TABLET PO SCH (08:58)
[2016-06-16] MEDS: LEVOTHYROXINE SODIUM 0.075 MG TABLET PO SCH (08:58)
[2016-06-16] MEDS: DONEPEZIL HCL 5 MG TABLET PO SCH (08:59)
[2016-06-16] MEDS: FINASTERIDE 5 MG TABLET PO SCH (09:35)
[2016-06-16] MEDS: ATENOLOL 50 MG TABLET PO SCH (12:32)
[2016-06-16] MEDS: CEFUROXIME 250 MG TABLET PO SCH ×2 (12:33→17:36)
--- NOTE | 2016-06-16 14:51 | PDOC PROGRESS REPORT ---
Subjective Progress Note for:: 06/15/16 Subjective:: Patient is seen on morning rounds. He is presently resting in bed. His is at bedside. He is unable to participate few systems due to his advanced dementia. He has had to be restrained to prevent him from removing his Diaz catheter and IV. He has been unable to participate with physical therapy this morning due to his dementia. Discussed with the difficulties this will place with effectively trying to rehabilitation pending. Discharge planning has been called to assist with long-term placement. Physical Exam Vital Signs: Temp Pulse Resp BP Pulse Ox 98.1 F 51 L 16 143/78 H 99 06/16/16 08:00 06/16/16 08:00 06/16/16 08:00 06/16/16 08:00 06/16/16 08:00 Intake & Output 06/15/16 06/16/16 06/17/16 06:59 06:59 06:59 Intake Total 4816 1100 Output Total 700 1530 Balance 4116 -430 Weight 77 kg 78.1 kg General appearance: PRESENT: no acute distress, well-developed, well-nourished Head exam: PRESENT: atraumatic, normocephalic Eye exam: PRESENT: conjunctiva pink, EOMI, PERRLA. ABSENT: scleral icterus Ear exam: PRESENT: bleeding Mouth exam: PRESENT: moist, tongue midline Neck exam: ABSENT: carotid bruit, JVD, lymphadenopathy, thyromegaly Respiratory exam: PRESENT: clear to auscultation amari. ABSENT: rales, rhonchi, wheezes Cardiovascular exam: PRESENT: RRR. ABSENT: diastolic murmur, rubs, systolic murmur Pulses: PRESENT: normal dorsalis pedis pul Vascular exam: PRESENT: normal capillary refill GI/Abdominal exam: PRESENT: normal bowel sounds, soft. ABSENT: distended, guarding, mass, organolmegaly, rebound, tenderness Rectal exam: PRESENT: deferred Extremities exam: PRESENT: full ROM - left hip, tenderness, other Musculoskeletal exam: PRESENT: full ROM, normal inspection, tenderness Neurological exam: PRESENT: alert, altered, CN II-XII grossly intact Psychiatric exam: PRESENT: agitated Focused psych exam: PRESENT: restlessness Skin exam: PRESENT: dry, intact, warm. ABSENT: cyanosis, rash Results Laboratory Results: 06/14/16 04:32 06/14/16 04:32 Impressions: Chest X-Ray 06/11/16 14:58 IMPRESSION: NO ACUTE RADIOGRAPHIC FINDING IN THE CHEST. Head CT 06/11/16 15:03 IMPRESSION: CHRONIC CHANGES OF ATROPHY AND MICROVASCULAR ISCHEMIA. NO ACUTE PROCESS. Fluoroscopy 06/12/16 00:00 IMPRESSION: Please see combined report for performance of procedure and radiologic supervision and interpretation. Hip X-Ray 06/13/16 08:00 IMPRESSION: Left hip hemiarthroplasty. Assessment & Plan - Diagnosis (1) Subcapital fracture of left hip Is this a current diagnosis for this admission?: YesPlan: Patient is postop day 1 from ORIF of left hip with Dr. Erika Kilgore. Rehabilitation will be difficult due to his advanced dementia. His and family is aware. He is awaiting shelter placement family hopes to [facility]. (2) Dementia Is this a current diagnosis for this admission?: YesPlan: Patient's requiring soft restraints to prevent dislodgment of IV and Diaz catheter. Try some Risperdal 1 mg twice a day. He is extremely agitated. (3) Hypertension Is this a current diagnosis for this admission?: YesPlan: Continue current antihypertensives he is presently normotensive. (4) BPH (benign prostatic hyperplasia) Is this a current diagnosis for this admission?: YesPlan: Continue flomax and finasteride (5) Hypothyroid Qualifiers: Hypothyroidism type: acquired Qualified Code(s): E03.9 - Hypothyroidism, unspecified Is this a current diagnosis for this admission?: YesPlan: Continue synthroid (6) Do not resuscitate Is this a current diagnosis for this admission?: YesPlan: is his medical decision-maker she wishes DO NOT RESUSCITATE status from her due to his poor quality of life. (7) Hematuria Is this a current diagnosis for this admission?: YesPlan: Patient has a history of hematuria he has been worked up for a ladder cancer with a cystoscopy prior. Urine culture is pending. We'll continue broad- spectrum antibiotics for now. (8) Pacemaker Is this a current diagnosis for this admission?: Yes - Time Time Spent with patient: 25-34 minutes Critical Time spent with patient: 15-24 minutes Medications reviewed and adjusted accordingly: Yes Anticipated discharge: SNF, Acute Rehab Within: when bed available
--- NOTE | 2016-06-16 14:59 | PDOC PROGRESS REPORT ---
Subjective Progress Note for:: 06/16/16 Subjective:: Patient is seen on morning rounds. He is presently resting in bed. His is at bedside. He is unable to participate few systems due to his advanced dementia. He is much more calm and cooperative today. We're going to discontinue his IV fluids and his Diaz catheter. We will remove soft wrist restraints with close observation family and nursing staff.. Discussed with the difficulties this will place with effectively trying to rehabilitate his hip. She has good understanding of this. Discharge planning has been called to assist with long-term placement. Physical Exam Vital Signs: Temp Pulse Resp BP Pulse Ox 98.1 F 51 L 16 143/78 H 99 06/16/16 08:00 06/16/16 08:00 06/16/16 08:00 06/16/16 08:00 06/16/16 08:00 Intake & Output 06/15/16 06/16/16 06/17/16 06:59 06:59 06:59 Intake Total 4816 1100 Output Total 700 1530 Balance 4116 -430 Weight 77 kg 78.1 kg General appearance: PRESENT: no acute distress, well-developed, well-nourished Head exam: PRESENT: atraumatic, normocephalic Eye exam: PRESENT: conjunctiva pink, EOMI, PERRLA. ABSENT: scleral icterus Ear exam: PRESENT: normal external ear exam Mouth exam: PRESENT: moist, tongue midline Neck exam: ABSENT: carotid bruit, JVD, lymphadenopathy, thyromegaly Respiratory exam: PRESENT: clear to auscultation amari. ABSENT: rales, rhonchi, wheezes Cardiovascular exam: PRESENT: RRR. ABSENT: diastolic murmur, rubs, systolic murmur Pulses: PRESENT: normal dorsalis pedis pul Vascular exam: PRESENT: normal capillary refill GI/Abdominal exam: PRESENT: normal bowel sounds, soft. ABSENT: distended, guarding, mass, organolmegaly, rebound, tenderness Rectal exam: PRESENT: deferred Extremities exam: PRESENT: full ROM. ABSENT: calf tenderness, clubbing, pedal edema Neurological exam: PRESENT: alert, altered, CN II-XII grossly intact Psychiatric exam: PRESENT: flat affect Focused psych exam: PRESENT: restlessness Skin exam: PRESENT: dry, intact, warm. ABSENT: cyanosis, rash Results Laboratory Results: 06/14/16 04:32 06/14/16 04:32 Impressions: Chest X-Ray 06/11/16 14:58 IMPRESSION: NO ACUTE RADIOGRAPHIC FINDING IN THE CHEST. Head CT 06/11/16 15:03 IMPRESSION: CHRONIC CHANGES OF ATROPHY AND MICROVASCULAR ISCHEMIA. NO ACUTE PROCESS. Fluoroscopy 06/12/16 00:00 IMPRESSION: Please see combined report for performance of procedure and radiologic supervision and interpretation. Hip X-Ray 06/13/16 08:00 IMPRESSION: Left hip hemiarthroplasty. Assessment & Plan - Diagnosis (1) Subcapital fracture of left hip Is this a current diagnosis for this admission?: YesPlan: Patient is postop day 1 from ORIF of left hip with Dr. Erika Kilgore. Rehabilitation will be difficult due to his advanced dementia. His and family is aware. He is awaiting [facility] placement family hopes to [facility]. (2) Dementia Is this a current diagnosis for this admission?: YesPlan: Patient's requiring soft restraints to prevent dislodgment of IV and Diaz catheter. Try some Risperdal 1 mg twice a day. He is extremely agitated. (3) Hypertension Is this a current diagnosis for this admission?: YesPlan: Continue current antihypertensives he is presently normotensive. (4) BPH (benign prostatic hyperplasia) Is this a current diagnosis for this admission?: YesPlan: Continue flomax and finasteride (5) Hypothyroid Qualifiers: Hypothyroidism type: acquired Qualified Code(s): E03.9 - Hypothyroidism, unspecified Is this a current diagnosis for this admission?: YesPlan: Continue synthroid (6) Do not resuscitate Is this a current diagnosis for this admission?: YesPlan: is his medical decision-maker she wishes DO NOT RESUSCITATE status from her due to his poor quality of life. (7) Hematuria Is this a current diagnosis for this admission?: YesPlan: Patient has a history of hematuria he has been worked up for a ladder cancer with a cystoscopy prior. Urine culture is pending. We'll continue broad- spectrum antibiotics for now. (8) Pacemaker Is this a current diagnosis for this admission?: Yes - Time Time Spent with patient: 25-34 minutes Critical Time spent with patient: 15-24 minutes Medications reviewed and adjusted accordingly: Yes Anticipated discharge: Acute Rehab Within: when bed available
[2016-06-16] MEDS: DOXAZOSIN MESYLATE 4 MG TABLET PO SCH (21:25)
[2016-06-16] MEDS: QUETIAPINE FUMARATE 25 MG TABLET PO SCH (21:25)
[2016-06-17] MEDS: OXYCODONE HCL IR 5 MG TABLET PO PRN ×3 (02:49→14:49)
[2016-06-17 04:50] LABS: ABSOLUTE BASOPHILS # (AUTO) 0.1 10^3/uL (0.0-0.2); ABSOLUTE LYMPHOCYTES (AUTO) 1.1 10^3/uL (0.5-4.7); ABSOLUTE MONOCYTES (AUTO) 0.7 10^3/uL (0.1-1.4); ABSOLUTE NEUT (AUTO) 9.4 10^3/uL (1.7-8.2); BASOPHILS % (AUTO) 0.5 % (0-2); EOSINOPHILS % (AUTO) 0.3 % (0-6); HEMATOCRIT 23.2 % (37.9-51.0); HGB HCT DIFFERENCE 0.5; LYMPHOCYTES % (AUTO) 9.7 % (13-45); MEAN CORPUSCULAR HEMOGLOBIN 31.2 pg (27.0-33.4); MEAN CORPUSCULAR HGB CONC 34.3 g/dL (32.0-36.0); MEAN CORPUSCULAR VOLUME 91 fl (80-97); MONOCYTES % (AUTO) 6.1 % (3-13); RED BLOOD COUNT 2.55 10^6/uL (4.35-5.55); RED CELL DISTRIBUTION WIDTH 14.1 % (11.5-14.0); SEGMENTED NEUTROPHILS % (AUTO) 83.4 % (42-78); WHITE BLOOD COUNT 11.3 10^3/uL (4.0-10.5)
[2016-06-17 04:56] LABS: HEMOGLOBIN 7.9 g/dL (13.5-17.0)
[2016-06-17] MEDS ORDERED: LORAZEPAM 0.5 MG TABLET PO ONE (05:30)
[2016-06-17] MEDS ORDERED: LORAZEPAM 0.5 MG TABLET PO PRN (08:08)
[2016-06-17 08:24] VITALS: BP 157/132
[2016-06-17] MEDS ORDERED: LORAZEPAM INJ 2 MG/1 ML VIAL IM ONE (08:30)
[2016-06-17] MEDS: LEVOTHYROXINE SODIUM 0.075 MG TABLET PO SCH (08:43)
[2016-06-17] MEDS: FINASTERIDE 5 MG TABLET PO SCH ×2 (08:43→08:56)
[2016-06-17] MEDS: DONEPEZIL HCL 5 MG TABLET PO SCH (08:54)
[2016-06-17] MEDS: BENAZEPRIL HCL 20 MG TABLET PO SCH (08:55)
[2016-06-17] MEDS: CEFUROXIME 250 MG TABLET PO SCH ×2 (08:55→18:16)
[2016-06-17] MEDS: ATENOLOL 50 MG TABLET PO SCH (08:56)
[2016-06-17] MEDS ORDERED: HALOPERIDOL LACTATE INJ 5 MG/1 ML VIAL IM ONE (12:15)
[2016-06-17] MEDS ORDERED: HALOPERIDOL 5 MG TABLET PO SCH (14:00)
--- NOTE | 2016-06-17 14:33 | PDOC TRANSFER SUMMARY ---
General - Admit/Disc Date/PCP Admission Date/Primary Care Provider: 06/11/16 16:33 LAUREN DEL ANGEL MD Discharge Date: 06/17/16 - Discharge Diagnosis (1) Subcapital fracture of left hip Is this a current diagnosis for this admission?: YesSummary: Post op orif left hip by Dr Erika Kilgore on 06/12. Patient is unable to do PT because of dementia (2) Dementia Is this a current diagnosis for this admission?: YesSummary: Continue current medications (3) Hypertension Is this a current diagnosis for this admission?: YesSummary: Continue current medications (4) BPH (benign prostatic hyperplasia) Is this a current diagnosis for this admission?: YesSummary: Patient on Flomax, Cardura, Finasteride. Patient had urinary retention post Diaz removal, requiring reinsertion. He also has history of hematuria. His states he underwent cystoscopy prior with no diagnosis. She does not wish to further pursue this. (5) Hypothyroid Is this a current diagnosis for this admission?: YesSummary: Continue Levoxyl (6) Do not resuscitate Is this a current diagnosis for this admission?: YesSummary: is his healthcare surrogate decision-maker. She completely understands DO NOT RESUSCITATE ramifications. (7) Hematuria Is this a current diagnosis for this admission?: YesSummary: Chronic he has had urology workup in the past with known diagnosis. (8) Pacemaker Is this a current diagnosis for this admission?: Yes - Additional Information Resuscitation Status: Do Not Resuscitate Discharge Diet: Regular Discharge Activity: Activity As Tolerated Home Medications: Amlodipine Besylate [Norvasc 5 mg Tablet] 5 mg PO DAILY 06/11/16 Atenolol [Tenormin] 25 mg PO DAILY 06/11/16 Benazepril HCl [Lotensin 20 mg Tablet] 20 mg PO DAILY 06/11/16 Cyanocobalamin (Vitamin B-12) [Vitamin B-12 Inj 1000 Mcg/1 ml Vial] 1,000 mcg IM .MONTHLY 06/11/16 Donepezil HCl [Aricept] 20 mg PO DAILY 06/11/16 Doxazosin Mesylate [Cardura 4 mg Tablet] 4 mg PO QHS 06/11/16 Finasteride [Proscar 5 mg Tablet] 5 mg PO DAILY 06/11/16 Levothyroxine Sodium [Synthroid 0.05 mg Tablet] 50 mcg PO DAILY 06/11/16 Quetiapine Fumarate [Seroquel 25 mg Tablet] 50 mg PO QHS 06/11/16 Acetaminophen [Tylenol 325 mg Tablet] 650 mg PO Q4HP PRN tablet 06/17/16 Acetaminophen [Tylenol 650 mg Supp] 650 mg RI Q4HP PRN supp.rect 06/17/16 Haloperidol [Haldol 5 mg Tablet] 5 mg PO Q8 tablet 06/17/16 Oxycodone HCl [Oxy-Ir 5 mg Tablet] 5 mg PO Q4HP PRN #30 tablet 06/17/16 History of Present Illness Admission Date/PCP: 06/11/16 16:33 LAUREN DEL ANGEL MD Patient complains of: Fall with left hip pain History of Present Illness: JOSH AMES is a 76 year old male with past medical history of dementia, hypothyroidism, hypertension presents with family to the emergency department with left hip pain. Patient sustained a fall 24 hours prior to presentation. He has ambulatory dysfunction as a result of advanced dementia. In fact his family was taking him today to check him in to [facility] facility for long-term care of his dementia. 76-year-old Alzheimer dementia patient with pain with ambulation the left hip and guarding when attempting weightbearing on the left hip. Patient's dementia did not allow me to question him therefore information was given to me by his who is the power of commercial attorney. She told me the patient had fell the day before. Denies any previous orthopedic surgery or issues. Denies any other extremity injury. Patient was brought from home to [facility] for evaluation where he was diagnosed with left subcapital femoral neck fracture. Hospital Course Hospital Course: Patient was admitted to the hospitalist service on telemetry. Dr. Erika Kilgore, saw the patient in consult for orthopedic surgery. The following day on 06/12, he was taken to the OR where he underwent ORIF of the left hip. He tolerated the procedure well. He did have increasing confusion and agitation postoperatively. He was treated with Risperdal, which had little effect. He was then given Haldol 5 mg by mouth, which has improved his agitation. His and other family members have been quite attentive. Patient prior to his fall, had been slated for nursing home facility admission due to worsening dementia. Social work was consulted for discharge planning. Physical therapy was consulted for activity progression, however, due to his advanced dementia he was unable to participate. He has been given a bed offer from [facility]. He did require reinsertion of Diaz catheter secondary to urinary retention. He'll be discharged to [facility] today. Physical Exam Vital Signs: Temp Pulse Resp BP Pulse Ox 97.8 F 66 20 157/132 H 100 06/17/16 08:00 06/17/16 08:00 06/17/16 08:00 06/17/16 08:00 06/17/16 08:00 Intake & Output 06/16/16 06/17/16 06/18/16 06:59 06:59 06:59 Intake Total 1100 460 Output Total 1530 400 Balance -430 60 Weight 78.1 kg 78.1 kg General appearance: PRESENT: no acute distress, well-developed, well-nourished Head exam: PRESENT: atraumatic, normocephalic Eye exam: PRESENT: conjunctiva pink, EOMI, PERRLA. ABSENT: scleral icterus Ear exam: PRESENT: normal external ear exam Mouth exam: PRESENT: moist, tongue midline Teeth exam: PRESENT: edentulous Neck exam: ABSENT: carotid bruit, JVD, lymphadenopathy, thyromegaly Respiratory exam: PRESENT: clear to auscultation amari. ABSENT: rales, rhonchi, wheezes Cardiovascular exam: PRESENT: RRR. ABSENT: diastolic murmur, rubs, systolic murmur Pulses: PRESENT: normal carotid pulses, normal radial pulses Vascular exam: PRESENT: normal capillary refill, pallor GI/Abdominal exam: PRESENT: normal bowel sounds, soft. ABSENT: distended, guarding, mass, organolmegaly, rebound, tenderness Rectal exam: PRESENT: deferred Extremities exam: PRESENT: tenderness Musculoskeletal exam: PRESENT: full ROM, normal inspection Neurological exam: PRESENT: alert, altered, CN II-XII grossly intact Psychiatric exam: PRESENT: agitated, anxious Focused psych exam: PRESENT: restlessness Skin exam: PRESENT: dry, intact, warm. ABSENT: cyanosis, rash Results Laboratory Results: 06/17/16 04:04 06/14/16 04:32 06/17/16 04:04 WBC 11.3 H RBC 2.55 L Hgb 7.9 L Hct 23.2 L MCV 91 MCH 31.2 MCHC 34.3 RDW 14.1 H Plt Count 317 Seg Neutrophils % 83.4 H Lymphocytes % 9.7 L Monocytes % 6.1 Eosinophils % 0.3 Basophils % 0.5 Absolute Neutrophils 9.4 H Absolute Lymphocytes 1.1 Absolute Monocytes 0.7 Absolute Eosinophils 0.0 Absolute Basophils 0.1 06/15/16 19:30 Catheterized Urine Urine Culture - Final NO GROWTH 2 DAYS 06/11/16 20:10 Blood Blood Culture - Final NO GROWTH IN 5 DAYS 06/11/16 18:46 Blood Blood Culture - Final NO GROWTH IN 5 DAYS Impressions: Chest X-Ray 06/11/16 14:58 IMPRESSION: NO ACUTE RADIOGRAPHIC FINDING IN THE CHEST. Head CT 06/11/16 15:03 IMPRESSION: CHRONIC CHANGES OF ATROPHY AND MICROVASCULAR ISCHEMIA. NO ACUTE PROCESS. Fluoroscopy 06/12/16 00:00 IMPRESSION: Please see combined report for performance of procedure and radiologic supervision and interpretation. Hip X-Ray 06/13/16 08:00 IMPRESSION: Left hip hemiarthroplasty. Transfer Plan - Disposition Transfer Plan: [facility] - Time Spent with Patient Time spent with patient: Less than 30 Minutes
[2016-06-18] MEDS ORDERED: LEVOTHYROXINE SODIUM 0.075 MG TABLET PO SCH (06:00)
== END 2016-06-17 19:45 | DRG 470 ==
LOC: ER 13:41 → EH 16:33 → UNDOADMIN 17:50 → EH 17:50 → 4N 20:10
PROC: 0SRS0JA Replacement of Left Hip Joint, Femoral Surface with Synthetic Substitute, Uncemented, Open Approach (ICD-10-PCS; principal; 2016-06-12 18:30)
DX: S72.012A Unspecified intracapsular fracture of left femur, initial encounter for closed fracture (principal); D62 Acute posthemorrhagic anemia; Z66 Do not resuscitate; I10 Essential (primary) hypertension; E03.9 Hypothyroidism, unspecified; R31.9 Hematuria, unspecified; N40.0 Benign prostatic hyperplasia without lower urinary tract symptoms; E53.8 Deficiency of other specified B group vitamins; W01.0XXA Fall on same level from slipping, tripping and stumbling without subsequent striking against object, initial encounter; G30.9 Alzheimer's disease, unspecified; F02.80 Dementia in other diseases classified elsewhere, unspecified severity, without behavioral disturbance, psychotic disturbance, mood disturbance, and anxiety; Y93.9 Activity, unspecified; Y92.9 Unspecified place or not applicable; Z88.5 Allergy status to narcotic agent; Z95.0 Presence of cardiac pacemaker
CPT/HCPCS: 01210; 36415; 51702; 70450; 71010; 80048; 80053; 81001; 84443; 85025; 85610; 85730; 87040; 87086; 88305; 88311; 93005; 93010; 93306; 96372; 99285; C9290; G8978-GP; G8979-GP; G8987-GO; G8988-GO; G8989-GO; J0131; J0360; J0690; J0696; J1170; J1630; J1644; J2060; J2370; J2704; J3490; J7030; J7120

== ENCOUNTER 2016-07-12 13:03 | Emergency (ER) | payer MEDICARE, BC ==
--- NOTE | 2016-07-12 13:47 | ER Document Report ---
ED Seizure - General Mode of Arrival: Medic Information source: Patient Cannot obtain history due to: Dementia - HPI Patient complains to provider of: Other - unknown Associated Symptoms: Other - see notes above <LUKE SU - Last Filed: 07/12/16 13:40> <LUL SALMON - Last Filed: 07/12/16 18:40> - General Chief Complaint: Probable Seizure Stated Complaint: POSSIBLE SEIZURE Time Seen by Provider: 07/12/16 13:26 Notes: 76 year old male with history of Alzheimer's dementia, hypertension, hypothyroidism, BPH, B-12 deficiency, and bilateral inguinal hernia presents to the ED via EMS after [facility] staff noticed the patient was having a seizure at 1214 this afternoon. They report that the patient is alert and orientated at baseline. A comprehensive HPI was unobtainable secondary to the patient's status. (LUKE SU) - Related Data Allergies/Adverse Reactions: codeine [Codeine] Allergy (Intermediate, Verified 06/13/16 01:17) severe N&V morphine [Morphine] Allergy (Intermediate, Verified 06/13/16 01:17) Hallucinations Past Medical History - General Information source: Patient - Social History Smoking Status: Unknown if Ever Smoked Family History: Reviewed & Not Pertinent - Past Medical History Cardiac Medical History: Reports: Hx Hypertension - meds x 4 years Endocrine Medical History: Reports: Hx Hypothyroidism Renal/ Medical History: Reports: Hx Benign Prostatic Hyperplasia. Denies: Hx Peritoneal Dialysis Musculoskeltal Medical History: Reports Hx Arthritis - back Psychiatric Medical History: Reports: Hx Dementia Past Surgical History: Reports: Hx Cholecystectomy, Hx Herniorrhaphy - bilateral inguinal hernia repair, Hx Pacemaker - 2008, Other - Back surgery, prostate surgery - Immunizations Hx Diphtheria, Pertussis, Tetanus Vaccination: Yes - unsure of date Hx Pneumococcal Vaccination: 02/24/13 <LUKE SU - Last Filed: 07/12/16 13:40> <LUL SALMON - Last Filed: 07/12/16 18:40> - Medical History Notes: B-12 deficiency (LUKE SU) Review of Systems - Review of Systems -: Yes ROS unobtainable due to patient's medical condition <LUKE SU - Last Filed: 07/12/16 13:40> Physical Exam - General General appearance: Alert In distress: None - HEENT Head: Normocephalic, Atraumatic Eyes: Normal Extraocular movements intact: Yes Pupils: PERRL - Respiratory Respiratory status: No respiratory distress Breath sounds: Normal - Cardiovascular Rhythm: Regular Heart sounds: Normal auscultation - Abdominal Inspection: Healed incision - Exploratory Laparotomy scar Distension: No distension Tenderness: Nontender - Back Back: Normal - Extremities General upper extremity: Normal inspection, Normal ROM General lower extremity: Normal inspection, Edema - trace edema to the lower extremities, Normal ROM - Neurological Neuro grossly intact: Yes - at baseline - Psychological Associated symptoms: Normal affect, Normal mood - Skin Skin Temperature: Warm Skin Moisture: Dry Skin Color: Normal <LUKE SU - Last Filed: 07/12/16 13:40> Course - Laboratory Result Diagrams: 07/12/16 14:50 07/12/16 14:50 - Diagnostic Test Radiology reviewed: Image reviewed, Reports reviewed - CT of the brain shows chronic ischemic changes nothing acute. - EKG Interpretation by Me EKG shows normal: Sinus rhythm, Lamar, Intervals, QRS Complexes, ST-T Waves Rate: Normal - 65 Rhythm: NSR When compared to previous EKG there are: Other - Patient was shivering and shaking causing baseline scatter <LUL SALMON - Last Filed: 07/12/16 18:40> - Vital Signs Vital signs: Temp Pulse Resp BP Pulse Ox 97.8 F 82 18 145/79 H 96 07/12/16 18:32 07/12/16 18:32 07/12/16 18:32 07/12/16 18:32 07/12/16 18:32 - Laboratory Laboratory results interpreted by me: 07/12/16 07/12/16 07/12/16 14:50 14:50 15:55 WBC 11.9 H RBC 2.71 L Hgb 8.1 L Hct 24.9 L RDW 16.0 H Seg Neutrophils % 81.0 H Lymphocytes % 12.3 L Absolute Neutrophils 9.6 H Sodium 136.9 L BUN 31 H Creatinine 1.43 H Est GFR ( Amer) 58 L Est GFR (Non-Af Amer) 48 L Albumin 3.1 L Urine Protein 30 H Urine Blood LARGE H Discharge <LUKE SU - Last Filed: 07/12/16 13:40> <LUL SALMON - Last Filed: 07/12/16 18:40> - Discharge Clinical Impression: Seizure, Reported seizure activity at the nursing Dementia Qualifiers: Dementia type: Alzheimer's disease Alzheimer's disease onset: unspecified onset Dementia behavioral disturbance: without behavioral disturbance Qualified Code(s): G30.9 - Alzheimer's disease, unspecified Condition: Stable Disposition: HOME, SELF-CARE Additional Instructions: Seizure: You MAY have had a seizure. Seizure disorders (epilepsy) of one sort or another affect about one out of 50 people. The seizure occurs because of abnormal electrical activity in the brain. Seizures may be due to drugs and alcohol, strokes, brain injury, or infection. In the most common form of epilepsy, no cause can be found. You will require further evaluation to determine the cause of your seizure, and to determine whether anti-seizure medication is required. This follow-up testing is important, so please call us if you encounter problems with scheduling of tests or appointments. Call your doctor if seizures recur, or if you develop new symptoms such as fever, severe headache, stiff neck, confusion or increasing sleepiness, weakness or numbness, or visual problems. NO ABNORMALITIES WERE FOUND ON BRAIN CT SCAN AND LAB WORK TODAY. CALL DR. CABA TO REPORT THE SEIZURE AND TO ARRANGE FOLLOW UP. RETURN TO THE EMERGENCY ROOM IF ANY NEW OR WORSENING SYMPTOMS. Referrals: AVRIL CABA MD [ACTIVE STAFF] - Follow up tomorrow Scribe Attestation: 07/12/16 17:38 I personally performed the services described in the documentation, reviewed and edited the documentation which was dictated to the scribe in my presence, and it accurately records my words and actions. (LUL SALMON) Scribe Documentation - Scribe Written by Maru:: Maru Juarez, 07/12/2016 1354 acting as scribe for :: Annabella <LUKE SU - Last Filed: 07/12/16 13:40>
[2016-07-12] MEDS ORDERED: LORAZEPAM INJ 2 MG/1 ML VIAL IM ONE (15:34)
[2016-07-12 15:54] LABS: ABSOLUTE BASOPHILS # (AUTO) 0.1 10^3/uL (0.0-0.2); ABSOLUTE LYMPHOCYTES (AUTO) 1.5 10^3/uL (0.5-4.7); ABSOLUTE MONOCYTES (AUTO) 0.7 10^3/uL (0.1-1.4); ABSOLUTE NEUT (AUTO) 9.6 10^3/uL (1.7-8.2); BASOPHILS % (AUTO) 0.5 % (0-2); EOSINOPHILS % (AUTO) 0.2 % (0-6); HEMATOCRIT 24.9 % (37.9-51.0); HEMOGLOBIN 8.1 g/dL (13.5-17.0); HGB HCT DIFFERENCE -0.6; LYMPHOCYTES % (AUTO) 12.3 % (13-45); MEAN CORPUSCULAR HEMOGLOBIN 29.9 pg (27.0-33.4); MEAN CORPUSCULAR HGB CONC 32.5 g/dL (32.0-36.0); MEAN CORPUSCULAR VOLUME 92 fl (80-97); RED BLOOD COUNT 2.71 10^6/uL (4.35-5.55); WHITE BLOOD COUNT 11.9 10^3/uL (4.0-10.5)
[2016-07-12 16:08] LABS: ALANINE AMINOTRANSFERASE 28 U/L (21-72); ALBUMIN 3.1 g/dL (3.5-5.0); ALKALINE PHOSPHATASE 123 U/L (38-126); ANION GAP 12 (5-19); ASPARTATE AMINO TRANSFERASE 19 U/L (17-59); BILIRUBIN,DIRECT 0.3 mg/dL (0.0-0.4); BILIRUBIN,TOTAL 0.7 mg/dL (0.2-1.3); BLOOD UREA NITROGEN 31 mg/dL (7-20); CALCIUM 9.1 mg/dL (8.4-10.2); CARBON DIOXIDE 26 mmol/L (22-30); CHLORIDE 99 mmol/L (98-107); CREATININE RESULT 1.43 mg/dL (0.52-1.25); GLUCOSE 101 mg/dL (75-110); POTASSIUM 4.9 mmol/L (3.6-5.0); SODIUM 136.9 mmol/L (137-145); TOTAL PROTEIN 6.4 g/dL (6.3-8.2)
[2016-07-12 17:01] LABS: APPEARANCE,URINE SLIGHTLY-CLOUDY; BILIRUBIN,URINE NEGATIVE (NEGATIVE); GLUCOSE, URINE NEGATIVE (NEGATIVE); KETONES,URINE NEGATIVE (NEGATIVE); LEUKOCYTE ESTERASE,URINE NEGATIVE (NEGATIVE); NITRITE,URINE NEGATIVE (NEGATIVE); PROTEIN,URINE 30 mg/dL (NEGATIVE); URINE SPECIFIC GRAVITY 1.013; UROBILINOGEN,URINE NEGATIVE mg/dL (<2.0)
[2016-07-12 18:34] VITALS: BP 145/79
--- NOTE | 2016-07-13 17:47 | EKG REPORT ---
SEVERITY:- ABNORMAL ECG - ATRIAL FIBRILLATION, V-RATE 66-78 RUN OF VENTRICULAR PREMATURE COMPLEXES NONSPECIFIC INTRAVENTRICULAR CONDUCTION DELAY : Confirmed by: Laura Riojas MD 13-Jul-2016 17:46:40
== END 2016-07-12 19:35 | disposition home or self-care (01) ==
LOC: ER 13:03
DX: R56.9 Unspecified convulsions (principal); G30.9 Alzheimer's disease, unspecified; F02.80 Dementia in other diseases classified elsewhere, unspecified severity, without behavioral disturbance, psychotic disturbance, mood disturbance, and anxiety; I10 Essential (primary) hypertension; E03.9 Hypothyroidism, unspecified; N40.0 Benign prostatic hyperplasia without lower urinary tract symptoms; E53.8 Deficiency of other specified B group vitamins; Z88.6 Allergy status to analgesic agent; Z90.49 Acquired absence of other specified parts of digestive tract; Z95.0 Presence of cardiac pacemaker
CPT/HCPCS: 93005; 99285; 96372; 36415; 85025; 80053; 81001; 70450; 93010; J2060

== ENCOUNTER 2016-07-14 01:18 | Emergency (ER) | payer MEDICARE, BC ==
[2016-07-14 02:19] LABS: ABSOLUTE LYMPHOCYTES (AUTO) 2.3 10^3/uL (0.5-4.7); ABSOLUTE MONOCYTES (AUTO) 0.7 10^3/uL (0.1-1.4); ABSOLUTE NEUT (AUTO) 6.9 10^3/uL (1.7-8.2); BASOPHILS % (AUTO) 0.4 % (0-2); EOSINOPHILS % (AUTO) 0.2 % (0-6); HEMATOCRIT 26.5 % (37.9-51.0); HEMOGLOBIN 8.9 g/dL (13.5-17.0); HGB HCT DIFFERENCE 0.2; LYMPHOCYTES % (AUTO) 23.1 % (13-45); MEAN CORPUSCULAR HEMOGLOBIN 30.6 pg (27.0-33.4); MEAN CORPUSCULAR HGB CONC 33.6 g/dL (32.0-36.0); MEAN CORPUSCULAR VOLUME 91 fl (80-97); MONOCYTES % (AUTO) 6.9 % (3-13); RED CELL DISTRIBUTION WIDTH 16.2 % (11.5-14.0); SEGMENTED NEUTROPHILS % (AUTO) 69.4 % (42-78)
--- NOTE | 2016-07-14 02:20 | ER Document Report ---
ED GI/ - General Chief Complaint: Penile Bleeding Stated Complaint: PENILE BLEEDING Time Seen by Provider: 07/14/16 01:40 Notes: Patient is a 76-year-old male that comes emergency department [place] [facility] by EMS for chief complaint of bleeding from the penis that was noted tonight. Patient is not on a blood thinner, no trauma reported, patient states that he has pain in his belly but when I asked him to point where he states he does not have any pain. Patient has Alzheimer's/dementia. No vomiting, fever, or other abnormalities reported. TRAVEL OUTSIDE OF THE [place] IN LAST 30 DAYS: No - Related Data Allergies/Adverse Reactions: codeine [Codeine] Allergy (Intermediate, Verified 07/14/16 07:25) severe N&V morphine [Morphine] Allergy (Intermediate, Verified 07/14/16 07:25) Hallucinations Past Medical History - General Information source: Emergency Med Personnel, Outside Facility Records - Social History Smoking Status: Never Smoker Frequency of alcohol use: None Drug Abuse: None Lives with: [facility] Family History: Reviewed & Not Pertinent - Past Medical History Cardiac Medical History: Reports: Hx Hypertension - meds x 4 years Denies: Hx Coronary Artery Disease, Hx Heart Attack Pulmonary Medical History: Denies: Hx Asthma, Hx Bronchitis, Hx COPD, Hx Pneumonia Neurological Medical History: Denies: Hx Cerebrovascular Accident, Hx Seizures Endocrine Medical History: Reports: Hx Hypothyroidism Renal/ Medical History: Reports: Hx Benign Prostatic Hyperplasia. Denies: Hx Peritoneal Dialysis Musculoskeltal Medical History: Reports Hx Arthritis - back Psychiatric Medical History: Reports: Hx Dementia Denies: Hx Depression Past Surgical History: Reports: Hx Cardiac Surgery, Hx Cholecystectomy, Hx Herniorrhaphy - bilateral inguinal hernia repair, Hx Orthopedic Surgery - fx l hip, Hx Pacemaker - 2008, Other - Back surgery, prostate surgery - Immunizations Hx Diphtheria, Pertussis, Tetanus Vaccination: Yes - unsure of date Hx Pneumococcal Vaccination: 02/24/13 Review of Systems - Review of Systems Constitutional: No symptoms reported EENT: No symptoms reported Cardiovascular: No symptoms reported Respiratory: No symptoms reported Gastrointestinal: No symptoms reported Genitourinary: See HPI Male Genitourinary: No symptoms reported Musculoskeletal: No symptoms reported Skin: No symptoms reported Hematologic/Lymphatic: No symptoms reported Neurological/Psychological: No symptoms reported Physical Exam - Vital signs Vitals: Temp Pulse Resp BP Pulse Ox 97.8 F 60 14 107/69 92 07/14/16 01:30 07/14/16 01:30 07/14/16 01:30 07/14/16 01:30 07/14/16 01:30 Interpretation: Normal - General General appearance: Appears well, Alert In distress: None - Patient sitting in the bed, no apparent distress, alert and well-appearing - HEENT Head: Normocephalic, Atraumatic Eyes: Normal Conjunctiva: Normal Extraocular movements intact: Yes Eyelashes: Normal Pupils: PERRL Pharynx: Normal Neck: Normal - Respiratory Respiratory status: No respiratory distress Chest status: Nontender Breath sounds: Normal Chest palpation: Normal - Cardiovascular Rhythm: Regular Heart sounds: Normal auscultation Murmur: No - Abdominal Inspection: Normal Distension: No distension Bowel sounds: Normal Tenderness: Nontender Organomegaly: No organomegaly - Genitourinary Inspection: Blood at meatus - There is slight amount of blood noted at the meatus, no tenderness, no swelling, no abnormal erythema of the genitals or groin, no other abnormality noted. No: Penile discharge Tenderness: Nontender Cremasteric reflex: Normal Scrotum: Normal - Back Back: Normal, Nontender - Extremities General upper extremity: Normal inspection, Nontender, Normal color, Normal ROM , Normal temperature General lower extremity: Normal inspection, Nontender, Normal color, Normal ROM , Normal temperature, Normal weight bearing. No: Yousuf's sign - Neurological Neuro grossly intact: Yes Cognition: Normal, Confused [place] Coma Scale Motor: Obeys Commands Motor strength normal: LUE, RUE, LLE, RLE Sensory: Normal - Skin Skin Temperature: Warm Skin Moisture: Dry Skin Color: Normal Course - Re-evaluation Re-evalutation: Review of patient's records shows that patient has had hematuria in the past and this did not have a workup performed. Patient also has a history of BPH. Patient does have noted hematuria, no swelling, no tenderness, no signs of injury. Review of records from 06/11/16 states that patient is on Flomax, finasteride, he has had urinary retention post Diaz removal, has had multiple Diaz catheters, has a history of hematuria, his had stated he had undergone a cystoscopy prior with no diagnosis and they did not wish to pursue this further at that time. Patient with hematuria, some white blood cells, no fever, no leukocytosis, soft abdomen, slight elevation of his creatinine functioning at 1.75, no evidence of obstruction on imaging with questionable diverticulitis. No significant tenderness noted on abdominal exam. Culture placed. Treating with Augmentin to cover for both UTI and potential diverticulitis. Patient is not on a blood thinner. Patient initially was slightly agitated after Diaz insertion, given Ativan and temporarily place soft restraints, afterwards he calmed down these were able to be removed. I discussed with Dr. Claros, recommends a 2 day follow-up for repeat labs testing his renal functioning and hemoglobin. Patient will be discharged with these instructions and antibiotics. - Vital Signs Vital signs: Temp Pulse Resp BP Pulse Ox 97.3 F 81 18 114/58 L 93 07/14/16 07:30 07/14/16 07:32 07/14/16 07:30 07/14/16 07:30 07/14/16 07:32 - Laboratory Result Diagrams: 07/14/16 02:12 07/14/16 02:12 Laboratory results interpreted by me: 07/14/16 07/14/16 07/14/16 02:12 02:12 02:47 RBC 2.90 L Hgb 8.9 L Hct 26.5 L RDW 16.2 H Potassium 5.1 H BUN 36 H Creatinine 1.75 H Est GFR ( Amer) 46 L Est GFR (Non-Af Amer) 38 L Glucose 114 H Urine Protein 100 H Urine Blood LARGE H Discharge - Discharge Clinical Impression: Hematuria Condition: Stable Disposition: HOME, SELF-CARE Additional Instructions: Imaging does not show obstruction, give the Augmentin antibiotic as directed for urinary tract infection, have his hemoglobin and chemistry rechecked in 2 days to monitor him. Return to emergency department for any concerning or worsening symptoms including fever, vomiting, or if the Diaz catheter stops draining, or for any other concerning symptoms. Prescriptions: Amox Tr/Potassium Clavulanate [Augmentin 875-125 Tablet] 1 tab PO BID 7 Days Referrals: LAUREN DEL ANGEL MD [Primary Care Provider] - Follow up as needed
[2016-07-14 02:30] LABS: ANION GAP 11 (5-19); BLOOD UREA NITROGEN 36 mg/dL (7-20); CALCIUM 9.8 mg/dL (8.4-10.2); CARBON DIOXIDE 24 mmol/L (22-30); CHLORIDE 103 mmol/L (98-107); CREATININE RESULT 1.75 mg/dL (0.52-1.25); GLUCOSE 114 mg/dL (75-110); POTASSIUM 5.1 mmol/L (3.6-5.0)
[2016-07-14] MEDS ORDERED: LORAZEPAM 1 MG TABLET PO ONE (02:32)
[2016-07-14 03:16] LABS: APPEARANCE,URINE CLOUDY; BILIRUBIN,URINE NEGATIVE (NEGATIVE); GLUCOSE, URINE NEGATIVE (NEGATIVE); KETONES,URINE NEGATIVE (NEGATIVE); LEUKOCYTE ESTERASE,URINE NEGATIVE (NEGATIVE); NITRITE,URINE NEGATIVE (NEGATIVE); PROTEIN,URINE 100 mg/dL (NEGATIVE); URINE SPECIFIC GRAVITY 1.011; UROBILINOGEN,URINE NEGATIVE mg/dL (<2.0)
[2016-07-14] MEDS ORDERED: AMOXICILLIN TR/POT CLAVULANATE 500-125 MG TAB PO ONE (05:19)
[2016-07-14 07:33] VITALS: BP 114/58
== END 2016-07-14 08:05 | disposition home or self-care (01) ==
LOC: ER 01:18
DX: R31.9 Hematuria, unspecified (principal); G30.9 Alzheimer's disease, unspecified; F02.80 Dementia in other diseases classified elsewhere, unspecified severity, without behavioral disturbance, psychotic disturbance, mood disturbance, and anxiety
CPT/HCPCS: 99285; 51702; 36415; 87086; 85025; 80048; 81001; 76380; A9270 ×2

== ENCOUNTER 2016-07-14 13:20 | Emergency (ER) | payer MEDICARE, BC ==
--- NOTE | 2016-07-14 13:49 | ER Document Report ---
ED General - General Stated Complaint: BLOOD IN URINE Time Seen by Provider: 07/14/16 13:26 Mode of Arrival: Medic Information source: [facility] Records, Outside Facility Records Cannot obtain history due to: Dementia Notes: 76 y/o male with advanced dementia presents from [facility] for evaluation of hematuria. Pt was seen early this morning for same, had workup which revealed possible UTI and possible diverticulitis on CT, sparks placed and patient treated with Augmentin and [facility]. Reportedly, pt pulled out his sparks at the [place] and it was replaced, but with bloody output and so pateint sent back to the ER for further evaluation. Pt denies specific complaints at this time, but history significantly limited secondary to dementia. TRAVEL OUTSIDE OF THE [place] IN LAST 30 DAYS: No - Related Data Allergies/Adverse Reactions: codeine [Codeine] Allergy (Intermediate, Verified 07/14/16 07:25) severe N&V morphine [Morphine] Allergy (Intermediate, Verified 07/14/16 07:25) Hallucinations Past Medical History - Social History Smoking Status: Unknown if Ever Smoked Family History: Reviewed & Not Pertinent - Past Medical History Cardiac Medical History: Reports: Hx Hypertension - meds x 4 years Denies: Hx Coronary Artery Disease, Hx Heart Attack Pulmonary Medical History: Denies: Hx Asthma, Hx Bronchitis, Hx COPD, Hx Pneumonia Neurological Medical History: Denies: Hx Cerebrovascular Accident, Hx Seizures Endocrine Medical History: Reports: Hx Hypothyroidism Renal/ Medical History: Reports: Hx Benign Prostatic Hyperplasia. Denies: Hx Peritoneal Dialysis Musculoskeltal Medical History: Reports Hx Arthritis - back Psychiatric Medical History: Reports: Hx Dementia Denies: Hx Depression Past Surgical History: Reports: Hx Cardiac Surgery, Hx Cholecystectomy, Hx Herniorrhaphy - bilateral inguinal hernia repair, Hx Orthopedic Surgery - fx l hip, Hx Pacemaker - 2008, Other - Back surgery, prostate surgery - Immunizations Hx Diphtheria, Pertussis, Tetanus Vaccination: Yes - unsure of date Hx Pneumococcal Vaccination: 02/24/13 Review of Systems - Review of Systems -: Yes ROS unobtainable due to patient's medical condition - dementia Physical Exam - Vital signs Vitals: Resp Pulse Ox 15 100 07/14/16 13:43 07/14/16 13:43 - Notes Notes: PHYSICAL EXAMINATION: GENERAL: Frail elderly male in no acute distress, agitated and trying to pull at sparks cath HEAD: Atraumatic, normocephalic. EYES: Pupils equal round and reactive to light, extraocular movements intact, sclera anicteric, conjunctiva are normal. ENT: nares patent, oropharynx clear without exudates. Moist mucous membranes. NECK: Normal range of motion, supple without lymphadenopathy LUNGS: Breath sounds clear to auscultation bilaterally and equal. No wheezes rales or rhonchi. HEART: Regular rate and rhythm without murmurs ABDOMEN: Soft, nontender, normoactive bowel sounds. No guarding, no rebound. EXTREMITIES: Normal range of motion, no edema NEUROLOGICAL: Cranial nerves grossly intact. No gross focal motor deficits. Pt with advanced dementia, baseline mental status per family SKIN: Warm, Dry, normal turgor, no rashes or lesions noted. Course - Re-evaluation Re-evalutation: 07/14/16 16:35 Patient's lab work reviewed. His anemia is essentially at baseline. His potassium is improved. Long discussion with family and decision made to remove Sparks catheter prior to [facility] because patient is likely to traumatically remove the catheter himself, and he has not had difficulty urinating. They are instructed to follow-up with his primary physician in 24-48 hours to monitor anemia, and we discussed strict return precautions to include fever, or worsening symptoms/concerns. Pt is to continue Augmentin as previously prescribed. Family is very comfortable with this plan. - Vital Signs Vital signs: Temp Pulse Resp BP Pulse Ox 17 125/60 100 07/14/16 18:02 07/14/16 17:00 07/14/16 15:01 - Laboratory Result Diagrams: 07/14/16 14:45 07/14/16 14:45 Laboratory results interpreted by me: 07/14/16 07/14/16 14:45 14:45 RBC 2.68 L Hgb 8.1 L Hct 24.5 L RDW 16.1 H Sodium 135.8 L BUN 32 H Creatinine 1.68 H Est GFR ( Amer) 48 L Est GFR (Non-Af Amer) 40 L - Diagnostic Test Radiology reviewed: Reports reviewed - Sparks in good position Discharge - Discharge Clinical Impression: Hematuria, Chronic anemia Condition: Stable Disposition: [facility] Additional Instructions: Anemia You have been found to have a significant anemia (a lower than normal amount of red blood cells). Anemia can be due to iron deficiency, vitamin deficiency, abnormal bleeding, or internal diseases. Usually, further tests are necessary to find the exact cause of the anemia. The most common cause of anemia is iron deficiency, often brought on by blood loss. This can be treated with iron supplements. If this appears to be the most likely cause, iron tablets may be prescribed even before all tests are complete. Contact the doctor at once if you note black or tarry-looking stools, bloody vomiting, shortness of breath, chest pain, or faintness.Hematuria HEMATURIA Hematuria, or blood in your urine, can be caused by minor medical problems , such as a bladder infection, or by more serious medical conditions, such as kidney stones or even tumors of the bladder or kidney. If the cause of the hematuria is known (such as a bladder infection) and can be treated, it may not need further evaluation. If the cause is not known, it will usually require further evaluation by a specialist, such as a urologist. In particular, unexplained hematuria in the older patient must be evaluated to rule out a serious condition, such as a bladder or kidney tumor. If the hematuria worsens or you are passing clots and then are unable to urinate, you should be re-evaluated. A catheter may need to be placed in the bladder to permit passage of urine. If you develop high fever, severe pain, or other new or worsening symptoms, return to the Emergency Department for re- evaluation. Continue the Augmentin as prescribed earlier today. Follow up with your primary doctor in 24-48 hours for re-evaluation and re-check of your anemia and your renal function. Return to the ER for difficulty urinating, fevers, or any other worsening symptoms or concerns for you. Referrals: LAUREN DEL ANGEL MD [Primary Care Provider] - Follow up tomorrow
[2016-07-14 14:54] LABS: ABSOLUTE BASOPHILS # (AUTO) 0.1 10^3/uL (0.0-0.2); ABSOLUTE LYMPHOCYTES (AUTO) 1.7 10^3/uL (0.5-4.7); ABSOLUTE MONOCYTES (AUTO) 0.7 10^3/uL (0.1-1.4); ABSOLUTE NEUT (AUTO) 7.8 10^3/uL (1.7-8.2); BASOPHILS % (AUTO) 0.7 % (0-2); EOSINOPHILS % (AUTO) 0.5 % (0-6); HEMATOCRIT 24.5 % (37.9-51.0); HEMOGLOBIN 8.1 g/dL (13.5-17.0); HGB HCT DIFFERENCE -0.2; LYMPHOCYTES % (AUTO) 16.4 % (13-45); MEAN CORPUSCULAR HEMOGLOBIN 30.2 pg (27.0-33.4); MEAN CORPUSCULAR VOLUME 91 fl (80-97); MONOCYTES % (AUTO) 7.1 % (3-13); RED BLOOD COUNT 2.68 10^6/uL (4.35-5.55); RED CELL DISTRIBUTION WIDTH 16.1 % (11.5-14.0); SEGMENTED NEUTROPHILS % (AUTO) 75.3 % (42-78); WHITE BLOOD COUNT 10.4 10^3/uL (4.0-10.5)
[2016-07-14 15:03] LABS: PROTHROMBIN TIME 14.1 SEC (11.4-15.4)
[2016-07-14 15:04] LABS: PARTIAL THROMBOPLASTIN TIME 33.3 SEC (23.5-35.8)
[2016-07-14 15:15] LABS: ANION GAP 11 (5-19); BLOOD UREA NITROGEN 32 mg/dL (7-20); CALCIUM 9.2 mg/dL (8.4-10.2); CARBON DIOXIDE 24 mmol/L (22-30); CHLORIDE 101 mmol/L (98-107); CREATININE RESULT 1.68 mg/dL (0.52-1.25); GLUCOSE 109 mg/dL (75-110); POTASSIUM 4.4 mmol/L (3.6-5.0); SODIUM 135.8 mmol/L (137-145)
[2016-07-14 18:04] VITALS: BP 125/60
== END 2016-07-14 18:08 ==
LOC: ER 13:20
DX: R31.9 Hematuria, unspecified (principal); D64.9 Anemia, unspecified
CPT/HCPCS: 99285; 51702; 36415; 87086; 85025; 85610; 85730; 80048; 81001; 76380; 72192; A9270 ×2

== ENCOUNTER 2016-08-19 21:09 | Emergency (ER) | payer MEDICARE, BC ==
--- NOTE | 2016-08-19 22:17 | ER Document Report ---
ED General - General Chief Complaint: Fall Stated Complaint: FALL/HEAD INJURY Time Seen by Provider: 08/19/16 21:24 Cannot obtain history due to: Dementia Notes: Patient is a 76-year-old male who apparently had a mechanical fall at a correction today. And is exquisitely demented and unable to provide any additional information. The son at the bedside states the only information he knows is at the correction called and said that the patient had fallen. TRAVEL OUTSIDE OF THE [place] IN LAST 30 DAYS: No - Related Data Allergies/Adverse Reactions: codeine [Codeine] Allergy (Intermediate, Verified 07/14/16 07:25) severe N&V morphine [Morphine] Allergy (Intermediate, Verified 07/14/16 07:25) Hallucinations Past Medical History - General Information source: Relative - Social History Smoking Status: Never Smoker Chew tobacco use (# tins/day): No Frequency of alcohol use: None Drug Abuse: None Lives with: [facility] Family History: Reviewed & Not Pertinent - Past Medical History Cardiac Medical History: Reports: Hx Hypertension - meds x 4 years Denies: Hx Coronary Artery Disease, Hx Heart Attack Pulmonary Medical History: Denies: Hx Asthma, Hx Bronchitis, Hx COPD, Hx Pneumonia Neurological Medical History: Denies: Hx Cerebrovascular Accident, Hx Seizures Endocrine Medical History: Reports: Hx Hypothyroidism Renal/ Medical History: Reports: Hx Benign Prostatic Hyperplasia. Denies: Hx Peritoneal Dialysis Musculoskeltal Medical History: Reports Hx Arthritis - back Psychiatric Medical History: Reports: Hx Dementia Denies: Hx Depression Past Surgical History: Reports: Hx Cardiac Surgery, Hx Cholecystectomy, Hx Herniorrhaphy - bilateral inguinal hernia repair, Hx Orthopedic Surgery - fx l hip, Hx Pacemaker - 2008, Other - Back surgery, prostate surgery - Immunizations Hx Diphtheria, Pertussis, Tetanus Vaccination: Yes - unsure of date Hx Pneumococcal Vaccination: 02/24/13 Review of Systems - Review of Systems Notes: Constitutional: Negative for fever. Eyes: Negative for visual changes. ENT: Negative for facial injury Cardiovascular: Negative for chest injury. Respiratory: Negative for shortness of breath. Gastrointestinal: Negative for abdominal injury. Genitourinary: Negative for genital injury Musculoskeletal: Negative for back injury. Skin: Positive for laceration/abrasions. Neurological: Negative for head injury. Physical Exam - Vital signs Vitals: Temp Pulse Resp BP Pulse Ox 98.0 F 147 H 18 153/68 H 92 08/19/16 21:19 08/19/16 21:19 08/19/16 21:19 08/19/16 21:19 08/19/16 21:19 Interpretation: Normal Notes: PHYSICAL EXAMINATION: GENERAL: Elderly, somewhat disheveled but in no acute distress HEAD: There is a 1 cm puncture laceration to the right posterior scalp EYES: Pupils equal round and reactive to light, extraocular movements intact, sclera anicteric, conjunctiva are normal. ENT: nares patent, no oral pharyngeal trauma. No hemotympanum, no Herbert's sign , no raccoon eyes. NECK: No midline cervical spine tenderness. Patient able to move their head to 45 bilaterally without any discomfort. LUNGS: Breath sounds clear to auscultation bilaterally and equal. No wheezes rales or rhonchi. HEART: Regular rate and rhythm without murmurs. CHEST WALL: No ecchymosis over the chest wall. ABDOMEN: Soft, nontender, normoactive bowel sounds. No guarding, no rebound. No abdominal bruising. EXTREMITIES: Normal range of motion, no pitting or edema. No long bone deformities. BACK: No midline spinal tenderness, step-offs, or deformities. NEUROLOGICAL: Face symmetric. Tongue protrudes midline. Extraocular motions intact. Pupils are 2 mm and equally reactive. 5 out of 5 strength in both the distal and proximal upper and lower extremities bilaterally. Sensation is grossly intact throughout. PSYCH: Oriented only to person SKIN: Warm, Dry, normal turgor, laceration as above Course - Re-evaluation Re-evalutation: 08/19/16 22:17 Presentation of a well appearing elderly patient in no acute distress, vitals within normal limits after a mechanical mechanical fall. Patient denies a syncopal episode as the cause for today's fall. No focal neurologic deficits on exam, no evidence of basilar skull fracture on exam without evidence of hemotympanum, raccoon eyes, or periauricular hematoma. No papilledema. Patient is not on anticoagulation. GCS is 15. No loss of consciousness. No episodes of vomiting. However, based on patient's age a CT of the head has been obtained which is negative for any acute intracranial bleed.. Likewise, patient was unable to be clinically cleared due to age by Leary cervical spine criteria. A CT of the cervical spine was also obtained and likewise is negative for any acute fracture. No indication for further imaging of the cervical spine. Patient has no focal deformities or limited range of motion in any joint space. Chest and abdominal exam are benign without any focal tenderness, shortness of breath, or bruising over the chest or abdominal wall. Patient has no flank tenderness. There is no obvious findings on trauma exam today and therefore no further imaging or evaluation will be obtained at this time. At this time will discharge with return precautions and follow-up recommendations. Verbal discharge instructions given a the bedside and opportunity for questions given. Medication warnings reviewed. Patient is in agreement with this plan and has verbalized understanding of return precautions and the need for primary care follow-up in the next 24-72 hours. - Vital Signs Vital signs: Temp Pulse Resp BP Pulse Ox 98.0 F 88 18 142/71 H 99 08/19/16 21:19 08/20/16 00:14 08/20/16 00:14 08/20/16 00:14 08/20/16 00:14 - Diagnostic Test Radiology reviewed: Image reviewed, Reports reviewed Radiology results interpreted by me: 08/20/16 03:15 CT head: No acute intracranial bleed Procedures - Laceration/Wound Repair Head Wound length (cm): 1 Wound's Depth, Shape: Superficial Laceration pre-procedure: Sterile PPE donned Wound explored: Clean Irrigated w/ Saline (mLs): 100 Wound Debrided: Minimal Wound Repaired With: [place] Number of Sutures: 1 Post-procedure wound care: Sterile dressing applied Post-procedure NV exam normal: Yes Complications: No Discharge - Discharge Clinical Impression: Scalp laceration Qualifiers: Encounter type: initial encounter Qualified Code(s): S01.01XA - Laceration without foreign body of scalp, initial encounter Fall Qualifiers: Encounter type: initial encounter Qualified Code(s): W19.XXXA - Unspecified fall, initial encounter Condition: Good Disposition: HOME-SNF (ED ONLY) Additional Instructions: You have been seen in the Emergency Department (ED) today following a fall. Your workup today did not reveal any injuries that require you to stay in the hospital. You can expect, though, to be stiff and sore for the next several days. Take tylenol 1000mg every 6 hours as needed for pain. You can apply a hot pack or electric heating pad to the sore areas. You can also use topical "Aspercreme with lidocaine" to sore areas as needed. Please follow up with your primary care doctor as soon as possible regarding today's ED visit and your recent accident. Call your doctor or return to the ED if you develop a sudden or severe headache , confusion, slurred speech, facial droop, weakness or numbness in any arm or leg, extreme fatigue, vomiting more than two times, severe abdominal pain, or other symptoms that concern you.
--- NOTE | 2016-08-19 22:32 | RADIOLOGY REPORT (SQ) ---
EXAM DESCRIPTION: PELVIS AP COMPLETED DATE/TIME: 08/19/2016 10:23 pm REASON FOR STUDY: fall COMPARISON: None. NUMBER OF VIEWS: One view TECHNIQUE: AP Pelvis LIMITATIONS: None. FINDINGS: MINERALIZATION: Normal. HIPS: Left hip prosthesis. No acute fracture or dislocation. No worrisome bone lesions. PELVIS AND SACRUM: No acute fracture or dislocation. No worrisome bone lesions. PUBIS AND ISCHIUM: No acute fracture. LOWER LUMBAR SPINE: No significant findings as visualized. SOFT TISSUES: No findings. OTHER: No other significant finding. IMPRESSION: LEFT HIP PROSTHESIS. NO TRAUMATIC FINDINGS IN THE PELVIS OR HIPS. TECHNICAL DOCUMENTATION: JOB ID: [id number] [employer]- All Rights Reserved
--- NOTE | 2016-08-19 22:43 | RADIOLOGY REPORT (SQ) ---
EXAM DESCRIPTION: CT CERVICAL SPINE WITHOUT COMPLETED DATE/TIME: 08/19/2016 10:34 pm REASON FOR STUDY: fall COMPARISON: None. TECHNIQUE: Axial images acquired through the cervical spine without intravenous contrast. Images re viewed with lung, soft tissue and bone windows. Reconstructed coronal and sagittal MPR images review ed. Images stored on PACS. All CT scanners at this facility use dose modulation, iterative reconstruction, and/or weight based d osing when appropriate to reduce radiation dose to as low as reasonably achievable (ALARA). [facility]: Dose Right [facility]: CareDose [facility]: Dose Right [facility]: Teradose 4D [facility]: [employer] RADIATION DOSE: Up-to-date CT equipment and radiation dose reduction techniques were employed. CTDIv ol: 22.8 mGy. DLP: 501 mGy-cm. mGy. LIMITATIONS: None. FINDINGS: ALIGNMENT: Anatomic. MINERALIZATION: Normal. VERTEBRAL BODIES: No fractures or dislocation. DISCS: Multilevel disc space narrowing with osteophytes. FACETS, LATERAL MASSES, POSTERIOR ELEMENTS: Facet arthropathy. No fractures. No dislocation. No ac [place] findings. HARDWARE: None in the spine. VISUALIZED RIBS: No fractures. LUNG APICES AND SOFT TISSUES: No significant or acute findings. OTHER: No other significant finding. IMPRESSION: CHRONIC DEGENERATIVE CHANGES. NO ACUTE FINDINGS. TECHNICAL DOCUMENTATION: JOB ID: [id number] Quality ID # [id number]: Final reports with documentation of one or more dose reduction techniques (e.g., Au tomated exposure control, adjustment of the mA and/or kV according to patient size, use of iterative reconstruction technique) 2010 [employer]- All Rights Reserved
--- NOTE | 2016-08-19 22:44 | RADIOLOGY REPORT (SQ) ---
EXAM DESCRIPTION: CT HEAD WITHOUT COMPLETED DATE/TIME: 08/19/2016 10:34 pm REASON FOR STUDY: fall COMPARISON: 07/12/2016. TECHNIQUE: Axial images acquired through the brain without intravenous contrast. Images reviewed wi th bone, brain and subdural windows. Images stored on PACS. All CT scanners at this facility use dose modulation, iterative reconstruction, and/or weight based d osing when appropriate to reduce radiation dose to as low as reasonably achievable (ALARA). [facility]: Dose Right [facility]: CareDose [facility]: Dose Right [facility]: Teradose 4D [facility]: Smart SOPATec RADIATION DOSE: Up-to-date CT equipment and radiation dose reduction techniques were employed. CTDIv ol: 67.0 mGy. DLP: 1182 mGy-cm.mGy. LIMITATIONS: None. FINDINGS: VENTRICLES: Prominent. CEREBRUM: No masses. No hemorrhage. No midline shift. Areas of low density in the white matter mos t likely due to chronic micro-vascular ischemic change. No evidence for acute infarction. CEREBELLUM: No masses. No hemorrhage. No alteration of density. No evidence for acute infarction. EXTRAAXIAL SPACES: Age-related involutional change. No fluid collections. No masses. ORBITS AND GLOBE: No intra- or extraconal masses. Normal contour of globe without masses. CALVARIUM: No fracture. PARANASAL SINUSES: No fluid or mucosal thickening. SOFT TISSUES: Posterior soft tissue injury with overlying skin pamela. OTHER: No other significant finding. IMPRESSION: CHRONIC CHANGES OF ATROPHY AND MICROVASCULAR ISCHEMIA. NO ACUTE PROCESS. TECHNICAL DOCUMENTATION: JOB ID: [id number] Quality ID # [id number]: Final reports with documentation of one or more dose reduction techniques (e.g., Au tomated exposure control, adjustment of the mA and/or kV according to patient size, use of iterative reconstruction technique) 2010 [employer]- All Rights Reserved
[2016-08-20 00:15] VITALS: BP 142/71
== END 2016-08-20 00:14 ==
LOC: ER 21:09
PROC: 0HQ0XZZ Repair Scalp Skin, External Approach (ICD-10-PCS; principal; 2016-08-19)
DX: S01.01XA Laceration without foreign body of scalp, initial encounter (principal); W19.XXXA Unspecified fall, initial encounter; Y92.129 Unspecified place in nursing home as the place of occurrence of the external cause; F03.90 Unspecified dementia, unspecified severity, without behavioral disturbance, psychotic disturbance, mood disturbance, and anxiety; Z88.5 Allergy status to narcotic agent; I10 Essential (primary) hypertension; Z95.0 Presence of cardiac pacemaker
CPT/HCPCS: 70450; 72125; 72170; 99284

== ENCOUNTER 2016-08-20 11:44 | Emergency (ER) | payer MEDICARE, BC ==
--- NOTE | 2016-08-20 11:57 | ER Document Report ---
ED General - General Chief Complaint: Probable Seizure Stated Complaint: POSSIBLE SEIZURE Time Seen by Provider: 08/20/16 11:50 Notes: 76-year-old male with chronic medical issues and severe dementia, seen last night here for a mechanical fall with a negative head CT presents after a "five- minute seizure" which was witnessed by staff at his skilled nursing. Not much information is available per EMS or the facility, and the patient is too demented to give a history. I do not see his records that he has a history of seizure. *History limited secondary to dementia TRAVEL OUTSIDE OF THE [place] IN LAST 30 DAYS: No - Related Data Allergies/Adverse Reactions: codeine [Codeine] Allergy (Intermediate, Verified 07/14/16 07:25) severe N&V morphine [Morphine] Allergy (Intermediate, Verified 07/14/16 07:25) Hallucinations Past Medical History - Social History Smoking Status: Never Smoker Family History: Reviewed & Not Pertinent - Past Medical History Cardiac Medical History: Reports: Hx Hypertension - meds x 4 years Denies: Hx Coronary Artery Disease, Hx Heart Attack Pulmonary Medical History: Denies: Hx Asthma, Hx Bronchitis, Hx COPD, Hx Pneumonia Neurological Medical History: Denies: Hx Cerebrovascular Accident, Hx Seizures Endocrine Medical History: Reports: Hx Hypothyroidism Renal/ Medical History: Reports: Hx Benign Prostatic Hyperplasia. Denies: Hx Peritoneal Dialysis Musculoskeltal Medical History: Reports Hx Arthritis - back Psychiatric Medical History: Reports: Hx Dementia Denies: Hx Depression Past Surgical History: Reports: Hx Cardiac Surgery, Hx Cholecystectomy, Hx Herniorrhaphy - bilateral inguinal hernia repair, Hx Orthopedic Surgery - fx l hip, Hx Pacemaker - 2008, Other - Back surgery, prostate surgery - Immunizations Hx Diphtheria, Pertussis, Tetanus Vaccination: Yes - unsure of date Hx Pneumococcal Vaccination: 02/24/13 Review of Systems - Review of Systems -: Yes ROS unobtainable due to patient's medical condition Physical Exam - Vital signs Vitals: Pulse Resp BP Pulse Ox 51 L 18 111/56 L 100 08/20/16 11:55 08/20/16 11:55 08/20/16 11:55 08/20/16 11:55 - Notes Notes: General: No acute distress, well-nourished Head: Old laceration, stapled to the occiput, no apparent new trauma., normocephalic ENT: Mouth normal, oropharynx moist, no exudates or tonsillar enlargement Eyes: Conjunctiva normal, pupils equal, lids normal Neck: No JVD, supple, no guarding CVS: Normal rate, regular rhythm, no murmurs Resp: No resp distress, equal and normal breath sounds bilaterally GI: Nondistended, soft, no tenderness to palpation, no rebound or guarding Ext: No deformities, no edema, normal range of motion in upper and lower ext Skin: No rash, warm Lymphatic: No lymphadeopathy noted Neuro: Awake, alert. Face symmetric. Answers simple yes or no questions but is not oriented to person place or time. Baseline per nursing who know him. Course - Re-evaluation Re-evalutation: 08/20/16 11:56 76-year-old male with possible seizure. I do not have enough information from bystanders to determine if he actually had convulsive episode, however given his age and recent trauma he merits at least a laboratory workup, I will also repeat his head CT. He is at his neurologic baseline. 08/20/16 12:11 Spoke with patient's . He did have an episode of shaking which lasted several minutes, she did not see the beginning of it but stated that his bilateral arms were shaking coarsely, she mimics this. No oral trauma. No known history of seizure but he had a separate episode of shaking a few weeks ago. Is that he is at his baseline which is extremely demented. 08/20/16 13:42 PT read negative. I had a conversation with the and stated that I cannot prove that the patient had a seizure but I do not believe starting him on antiepileptics is the right thing to do at this time. She will follow-up with his primary care doctor next week. Stable for discharge without further seizure activity or altered mental status in the emergency department. - Vital Signs Vital signs: Temp Pulse Resp BP Pulse Ox 51 L 18 111/56 L 100 08/20/16 11:55 08/20/16 11:55 08/20/16 11:55 08/20/16 11:55 - Laboratory Result Diagrams: 08/20/16 12:13 Laboratory results interpreted by me: 08/20/16 12:13 Sodium 135.9 L BUN 33 H Creatinine 1.52 H Est GFR ( Amer) 54 L Est GFR (Non-Af Amer) 45 L - Diagnostic Test Radiology reviewed: Image reviewed, Reports reviewed Radiology results interpreted by me: 08/20/16 13:41 Process - EKG Interpretation by Me EKG shows normal: Sinus rhythm Rate: Normal Rhythm: NSR - EKG machine is reading the EKG has ST depression in lateral leads , I do not believe this to be true. Questionable atrial paced. No acute ST or T-wave changes. Discharge - Discharge Clinical Impression: Seizure Dementia Qualifiers: Dementia type: Alzheimer's disease Alzheimer's disease onset: unspecified onset Dementia behavioral disturbance: without behavioral disturbance Qualified Code(s): G30.9 - Alzheimer's disease, unspecified Condition: Good Instructions: New Seizure ([facility]) Additional Instructions: It is possible that the seizure occurred today, however we did not find any dangerous cause of such an episode. Please follow-up with your primary care doctor as soon as possible. Please return to the ER for any fever cough or change in mental status.
[2016-08-20 12:59] LABS: ANION GAP 10 (5-19); BLOOD UREA NITROGEN 33 mg/dL (7-20); CALCIUM 9.5 mg/dL (8.4-10.2); CARBON DIOXIDE 25 mmol/L (22-30); CHLORIDE 101 mmol/L (98-107); CREATININE RESULT 1.52 mg/dL (0.52-1.25); GLUCOSE 94 mg/dL (75-110); POTASSIUM 4.6 mmol/L (3.6-5.0); SODIUM 135.9 mmol/L (137-145)
--- NOTE | 2016-08-20 13:21 | RADIOLOGY REPORT (SQ) ---
EXAM DESCRIPTION: CT HEAD WITHOUT COMPLETED DATE/TIME: 08/20/2016 1:09 pm REASON FOR STUDY: fall, ?SZ COMPARISON: 08/19/2016 TECHNIQUE: Axial images acquired through the brain without intravenous contrast. Images reviewed wi th bone, brain and subdural windows. Images stored on PACS. All CT scanners at this facility use dose modulation, iterative reconstruction, and/or weight based d osing when appropriate to reduce radiation dose to as low as reasonably achievable (ALARA). [facility]: Dose Right [facility]: CareDose [facility]: Dose Right [facility]: Teradose 4D [facility]: Smart Octap[employer] RADIATION DOSE: Up-to-date CT equipment and radiation dose reduction techniques were employed. CTDIv ol: 28.0 mGy. DLP: 560 mGy-cm.mGy. LIMITATIONS: None. FINDINGS: VENTRICLES: Prominent. CEREBRUM: No masses. No hemorrhage. No midline shift. Areas of low density in the white matter mos t likely due to chronic micro-vascular ischemic change. No evidence for acute infarction. CEREBELLUM: No masses. No hemorrhage. No alteration of density. No evidence for acute infarction. EXTRAAXIAL SPACES: Age-related involutional change. No fluid collections. No masses. ORBITS AND GLOBE: No intra- or extraconal masses. Normal contour of globe without masses. CALVARIUM: No fracture. PARANASAL SINUSES: No fluid or mucosal thickening. SOFT TISSUES: No mass or hematoma. OTHER: No other significant finding. IMPRESSION: CHRONIC CHANGES OF ATROPHY AND MICROVASCULAR ISCHEMIA. NO ACUTE PROCESS. COMMENT: Stable appearance. TECHNICAL DOCUMENTATION: JOB ID: [id number] Quality ID # [id number]: Final reports with documentation of one or more dose reduction techniques (e.g., Au tomated exposure control, adjustment of the mA and/or kV according to patient size, use of iterative reconstruction technique) 2010 [employer]- All Rights Reserved
[2016-08-20 13:42] VITALS: BP 117/79
--- NOTE | 2016-08-20 23:43 | EKG REPORT ---
SEVERITY:- ABNORMAL ECG - ATRIAL-PACED COMPLEXES CONSIDER ANTEROSEPTAL INFARCT MINIMAL ST DEPRESSION, LATERAL LEADS : Confirmed by: Megan Guerra 20-Aug-2016 23:43:17
== END 2016-08-20 14:20 | disposition home or self-care (01) ==
LOC: ER 11:44
DX: R56.9 Unspecified convulsions (principal); G30.9 Alzheimer's disease, unspecified; F02.80 Dementia in other diseases classified elsewhere, unspecified severity, without behavioral disturbance, psychotic disturbance, mood disturbance, and anxiety; E03.9 Hypothyroidism, unspecified; I10 Essential (primary) hypertension; Z90.49 Acquired absence of other specified parts of digestive tract; Z95.0 Presence of cardiac pacemaker; Z88.6 Allergy status to analgesic agent
CPT/HCPCS: 36415; 70450; 80048; 93005; 93010; 99285

== ENCOUNTER 2016-08-28 13:24 | Emergency (ER) | payer MEDICARE, BC ==
--- NOTE | 2016-08-28 16:43 | ER Document Report ---
ED Seizure - General Chief Complaint: Probable Seizure Stated Complaint: POSSIBLE SEIZURE Time Seen by Provider: 08/28/16 16:37 Notes: The patient is a 76-year-old male, past medical history dementia, hypertension, prior seizure activity, presents from [facility] after a witnessed minor seizure-like activity. He was not postictal and did not have any incontinence. He had similar symptoms last week and had blood work and a negative head CT. He saw Dr. Leary, the neurologist, this morning and was started on low-dose Keppra. He is scheduled for a 24 hour EEG next week. Patient has dementia and unable to provide any additional history. - Related Data Allergies/Adverse Reactions: codeine [Codeine] Allergy (Intermediate, Verified 07/14/16 07:25) severe N&V morphine [Morphine] Allergy (Intermediate, Verified 07/14/16 07:25) Hallucinations Past Medical History - General Information source: Outside Facility Records Cannot obtain history due to: Dementia - Social History Smoking Status: Unknown if Ever Smoked Chew tobacco use (# tins/day): No Frequency of alcohol use: None Drug Abuse: None Family History: Reviewed & Not Pertinent - Past Medical History Cardiac Medical History: Reports: Hx Hypertension - meds x 4 years Denies: Hx Coronary Artery Disease, Hx Heart Attack Pulmonary Medical History: Denies: Hx Asthma, Hx Bronchitis, Hx COPD, Hx Pneumonia Neurological Medical History: Denies: Hx Cerebrovascular Accident, Hx Seizures Endocrine Medical History: Reports: Hx Hypothyroidism Renal/ Medical History: Reports: Hx Benign Prostatic Hyperplasia. Denies: Hx Peritoneal Dialysis Musculoskeltal Medical History: Reports Hx Arthritis - back Psychiatric Medical History: Reports: Hx Dementia Denies: Hx Depression Past Surgical History: Reports: Hx Cardiac Surgery, Hx Cholecystectomy, Hx Herniorrhaphy - bilateral inguinal hernia repair, Hx Orthopedic Surgery - fx l hip, Hx Pacemaker - 2008, Other - Back surgery, prostate surgery - Immunizations Hx Diphtheria, Pertussis, Tetanus Vaccination: Yes - unsure of date Hx Pneumococcal Vaccination: 02/24/13 Review of Systems - Review of Systems -: Yes ROS unobtainable due to patient's medical condition Physical Exam - Vital signs Vitals: BP 122/93 H 08/28/16 13:35 - Notes Notes: PHYSICAL EXAMINATION: GENERAL: Well-appearing, well-nourished and in no acute distress. HEAD: Atraumatic, normocephalic. EYES: Pupils equal round and reactive to light, extraocular movements intact, sclera anicteric, conjunctiva are normal. ENT: nares patent, oropharynx clear without exudates. Moist mucous membranes. NECK: Normal range of motion, supple without lymphadenopathy LUNGS: Breath sounds clear to auscultation bilaterally and equal. No wheezes rales or rhonchi. HEART: Regular rate and rhythm without murmurs ABDOMEN: Soft, nontender, normoactive bowel sounds. No guarding, no rebound. No masses appreciated. EXTREMITIES: Normal range of motion, no pitting or edema. No cyanosis. NEUROLOGICAL: Cranial nerves grossly intact. Normal sensory and motor exams. SKIN: Warm, Dry, normal turgor, no rashes or lesions noted. Course - Re-evaluation Re-evalutation: Patient saw a neurologist this morning and was started on low-dose Keppra and is scheduled for an outpatient EEG next week. Labs and CT head performed last week did not show any acute abnormalities. Family filled Keppra prescription and instructed them to begin as directed by the neurologist. Will discharge patient back to [facility]. - Vital Signs Vital signs: Temp Pulse Resp BP Pulse Ox 97.8 F 80 17 125/94 H 96 08/28/16 15:39 08/28/16 15:39 08/28/16 15:39 08/28/16 15:39 08/28/16 15:39 Discharge - Discharge Clinical Impression: Seizure-like activity Condition: Stable Disposition: REHAB FACILITY Additional Instructions: Take the Keppra as prescribed by her neurologist. You have your EEG scheduled for next week. The seizure last longer than 15 minutes, then call 911. Seizure, Known Epileptic You have had a seizure. Seizures may "break through" in an epileptic due to stress of infection or injury, a change in blood chemistry, or drug and alcohol use. Another common cause is failure to take medication as prescribed. Your doctor has evaluated your situation for the likely cause of this seizure. It is important that you follow his advice concerning any medication changes and follow-up care. Further testing of anti-seizure medication levels in your blood may be necessary. 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 This seizure must be reported to the city bus driver 's license bureau. Call the doctor or return if seizures recur, or if new or unusual symptoms arise -- such as severe headache, confusion, excessive sleepiness, local weakness or numbness, neck stiffness, or fever. Referrals: AVRIL CABA MD [Primary Care Provider] - Follow up as needed
[2016-08-28] MEDS ORDERED: LORAZEPAM 1 MG TABLET PO ONE (16:50)
[2016-08-28 17:19] VITALS: BP 128/90
== END 2016-08-28 17:18 ==
LOC: ER 13:24
DX: R56.9 Unspecified convulsions (principal); F03.90 Unspecified dementia, unspecified severity, without behavioral disturbance, psychotic disturbance, mood disturbance, and anxiety; I10 Essential (primary) hypertension; Z88.6 Allergy status to analgesic agent; Z90.49 Acquired absence of other specified parts of digestive tract; Z95.0 Presence of cardiac pacemaker
CPT/HCPCS: 99284; A9270

== ENCOUNTER 2016-10-01 13:34 | Inpatient (IN) | payer MEDICARE, BC ==
--- NOTE | 2016-10-01 14:38 | RADIOLOGY REPORT (SQ) ---
EXAM DESCRIPTION: HIP RIGHT AP/LATERAL COMPLETED DATE/TIME: 10/01/2016 2:19 pm REASON FOR STUDY: bed 1 sent over for broken hip +tenderness COMPARISON: None. NUMBER OF VIEWS: Two views. TECHNIQUE: AP pelvis and additional frog-leg view of the right hip. LIMITATIONS: None. FINDINGS: MINERALIZATION: Osteopenic RIGHT HIP: Acute subcapital right femoral neck fracture with varus angulation. LEFT HIP: Left hip replacement incompletely included in the field of view. PUBIS AND ISCHIUM: No fracture. PELVIS: No fracture. SACRUM: No fracture or dislocation. No worrisome bone lesions. LOWER LUMBAR SPINE: No fracture or dislocation. No worrisome bone lesions. No significant disc disea se. SOFT TISSUES: There is iliac artery atherosclerotic calcification OTHER: No other significant finding. IMPRESSION: Acute right subcapital femoral neck fracture with mild varus angulation TECHNICAL DOCUMENTATION: JOB ID: [id number] [employer]- All Rights Reserved
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
[2016-10-01 15:14] LABS: ABSOLUTE LYMPHOCYTES (AUTO) 1.5 10^3/uL (0.5-4.7); ABSOLUTE MONOCYTES (AUTO) 0.6 10^3/uL (0.1-1.4); ABSOLUTE NEUT (AUTO) 9.5 10^3/uL (1.7-8.2); BASOPHILS % (AUTO) 0.4 % (0-2); EOSINOPHILS % (AUTO) 0.4 % (0-6); HEMATOCRIT 32.7 % (37.9-51.0); HGB HCT DIFFERENCE 0.3; LYMPHOCYTES % (AUTO) 12.9 % (13-45); MEAN CORPUSCULAR HEMOGLOBIN 29.7 pg (27.0-33.4); MEAN CORPUSCULAR HGB CONC 33.5 g/dL (32.0-36.0); MEAN CORPUSCULAR VOLUME 89 fl (80-97); MONOCYTES % (AUTO) 5.1 % (3-13); RED BLOOD COUNT 3.69 10^6/uL (4.35-5.55); RED CELL DISTRIBUTION WIDTH 15.4 % (11.5-14.0); SEGMENTED NEUTROPHILS % (AUTO) 81.2 % (42-78); WHITE BLOOD COUNT 11.7 10^3/uL (4.0-10.5)
[2016-10-01 15:27] LABS: ALANINE AMINOTRANSFERASE 28 U/L (21-72); ALBUMIN 3.3 g/dL (3.5-5.0); ALKALINE PHOSPHATASE 88 U/L (38-126); ANION GAP 9 (5-19); ASPARTATE AMINO TRANSFERASE 23 U/L (17-59); BILIRUBIN,DIRECT 0.4 mg/dL (0.0-0.4); BLOOD UREA NITROGEN 35 mg/dL (7-20); CALCIUM 9.6 mg/dL (8.4-10.2); CARBON DIOXIDE 25 mmol/L (22-30); CHLORIDE 104 mmol/L (98-107); GLUCOSE 94 mg/dL (75-110); POTASSIUM 5.3 mmol/L (3.6-5.0); SODIUM 137.7 mmol/L (137-145); TOTAL PROTEIN 6.7 g/dL (6.3-8.2)
--- NOTE | 2016-10-01 15:54 | RADIOLOGY REPORT (SQ) ---
EXAM DESCRIPTION: CT HEAD WITHOUT COMPLETED DATE/TIME: 10/01/2016 3:38 pm REASON FOR STUDY: FALL, HIP fx, NECK STIFF COMPARISON: Comparison 08/21/2015 TECHNIQUE: Axial images acquired through the brain without intravenous contrast. Images reviewed wi th bone, brain and subdural windows. Images stored on PACS. All CT scanners at this facility use dose modulation, iterative reconstruction, and/or weight based d osing when appropriate to reduce radiation dose to as low as reasonably achievable (ALARA). [facility]: Dose Right [facility]: CareDose [facility]: Dose Right [facility]: Teradose 4D [facility]: Klinq RADIATION DOSE: Up-to-date CT equipment and radiation dose reduction techniques were employed. CTDIv ol: 28.0 mGy. DLP: 504 mGy-cm.mGy. LIMITATIONS: None. FINDINGS: VENTRICLES: Prominent. CEREBRUM: No masses. No hemorrhage. No midline shift. Areas of low density in the white matter mos t likely due to chronic micro-vascular ischemic change. No evidence for acute infarction. CEREBELLUM: No masses. No hemorrhage. No alteration of density. No evidence for acute infarction. EXTRAAXIAL SPACES: Age-related involutional change. No fluid collections. No masses. ORBITS AND GLOBE: No intra- or extraconal masses. Normal contour of globe without masses. CALVARIUM: No fracture. PARANASAL SINUSES: No fluid or mucosal thickening. SOFT TISSUES: No mass or hematoma. OTHER: No other significant finding. IMPRESSION: CHRONIC CHANGES OF ATROPHY AND MICROVASCULAR ISCHEMIA. NO ACUTE PROCESS. TECHNICAL DOCUMENTATION: JOB ID: [id number] Quality ID # [id number]: Final reports with documentation of one or more dose reduction techniques (e.g., Au tomated exposure control, adjustment of the mA and/or kV according to patient size, use of iterative reconstruction technique) 2010 [employer]- All Rights Reserved
--- NOTE | 2016-10-01 16:14 | RADIOLOGY REPORT (SQ) ---
EXAM DESCRIPTION: CT CERVICAL SPINE WITHOUT COMPLETED DATE/TIME: 10/01/2016 3:38 pm REASON FOR STUDY: FALL, HIP fx, NECK STIFF COMPARISON: CT cervical spine 08/19/2016 TECHNIQUE: Axial images acquired through the cervical spine without intravenous contrast. Images re viewed with lung, soft tissue and bone windows. Reconstructed coronal and sagittal MPR images review ed. Images stored on PACS. All CT scanners at this facility use dose modulation, iterative reconstruction, and/or weight based d osing when appropriate to reduce radiation dose to as low as reasonably achievable (ALARA). [facility]: Dose Right [facility]: CareDose [facility]: Dose Right [facility]: Teradose 4D [facility]: Smart [employer] RADIATION DOSE: Up-to-date CT equipment and radiation dose reduction techniques were employed. CTDIv ol: 22.4 mGy. DLP: 498 mGy-cm. mGy. LIMITATIONS: None. FINDINGS: ALIGNMENT: Anatomic. MINERALIZATION: Osteopenic VERTEBRAL BODIES: No fractures or dislocation. DISCS: There is multilevel degenerative disc change. At C3-4, broad diffuse posterior disc bulging with right paracentral ossified disc protrusion causes moderate central canal stenosis and high-grade bilateral foraminal narrowing. Mild central canal lay rowing, moderate to high-grade bilateral foraminal narrowing at C4-5 and C5-6. FACETS, LATERAL MASSES, POSTERIOR ELEMENTS: No fractures. No dislocation. No acute findings. HARDWARE: None in the spine. VISUALIZED RIBS: No fractures. LUNG APICES AND SOFT TISSUES: No significant or acute findings. 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 IMPRESSION: No acute fracture or malalignment. Central canal stenosis at C3-4, bilateral foraminal narrowing at C3-4, C4-5, and C5-6. TECHNICAL DOCUMENTATION: JOB ID: [id number] Quality ID # [id number]: Final reports with documentation of one or more dose reduction techniques (e.g., Au tomated exposure control, adjustment of the mA and/or kV according to patient size, use of iterative reconstruction technique) 2010 [employer]- All Rights Reserved
[2016-10-01 16:53] LABS: APPEARANCE,URINE SLIGHTLY-CLOUDY; BILIRUBIN,URINE NEGATIVE (NEGATIVE); GLUCOSE, URINE NEGATIVE (NEGATIVE); KETONES,URINE 20 mg/dL (NEGATIVE); LEUKOCYTE ESTERASE,URINE NEGATIVE (NEGATIVE); NITRITE,URINE NEGATIVE (NEGATIVE); PROTEIN,URINE 100 mg/dL (NEGATIVE); URINE SPECIFIC GRAVITY 1.014; UROBILINOGEN,URINE NEGATIVE mg/dL (<2.0)
[2016-10-01] MEDS ORDERED: ONDANSETRON HCL INJ/PF 4 MG/2 ML SDV IV PRN (17:28)
[2016-10-01] MEDS ORDERED: MAGNESIUM HYDROXIDE SUSP 30 ML UDCUP PO PRN (17:28)
[2016-10-01] MEDS ORDERED: ACETAMINOPHEN 650 MG SUPP.RECT PR PRN (17:28)
[2016-10-01] MEDS ORDERED: IPRATROPIUM/ALBUTEROL 0.5-2.5 MG/3 ML AMPUL NEB PRN (17:28)
[2016-10-01] MEDS ORDERED: ACETAMINOPHEN 325 MG TABLET PO PRN (17:28)
[2016-10-01] MEDS ORDERED: OXYCODONE HCL IR 5 MG TABLET PO PRN (17:34)
[2016-10-01] MEDS ORDERED: HALOPERIDOL 5 MG TABLET PO PRN (17:34)
--- NOTE | 2016-10-01 17:47 | PDOC H&P ---
History of Present Illness Admission Date/PCP: 10/01/16 17:31 AVRIL CABA Patient complains of: fall with pain History of Present Illness: JOSH AMES is a 76 year old male presents from [place] where he resides due to advanced Alzheimer's Dementia after found down on floor and in pain; xray reveals Rt hip fracture and we were asked to admit for further eval and management including ortho consult. He is normally nonverbal, only occasional bursts of curse words is his baseline, though his indicates he is able to feed himself a regular consistency meal and liquids and ambulates without assistance in a slow shuffling gait. He is unable to provide ROS or medical history or even participate in his exam, he will not follow any commands. reports pacemaker placed for symptomatic bradycardia but he has no known ASCVD/CAD, smoked but quit decades ago and no history of COPD or chronic bronchitis/asthma. he broke his left hip requiring total replacement in the last year and she notes he was slow to wake up from anesthesia but seemed to tolerate the procedure okay, his mental state declined and never recovered. He used to hallucinate when given morphine but that was before the dementia set in. she isn't sure what pain meds he was given post op last time. Past Medical History Cardiac Medical History: Reports: Hypertension - meds x 4 years Denies: Coronary Artery Disease, Myocardial Infarction Pulmonary Medical History: Denies: Asthma, Bronchitis, Chronic Obstructive Pulmonary Disease (COPD), Pneumonia Neurological Medical History: Denies: Seizures Endocrine Medical History: Reports: Hypothyroidism Musculoskeltal Medical History: Reports: Arthritis - back Psychiatric Medical History: Reports: Dementia Denies: Depression Hematology: Denies: Anemia Past Surgical History Past Surgical History: Reports: Cholecystectomy, Herniorrhaphy - bilateral inguinal hernia repair, Orthopedic Surgery - fx l hip, Pacemaker - 2008, Other - Back surgery, prostate surgery Social History Information Source: Relative Smoking Status: Former Smoker Frequency of Alcohol Use: None Hx Recreational Drug Use: No Drugs: None Hx Prescription Drug Abuse: No - Advance Directive Resuscitation Status: Do Not Resuscitate Family History Family History: Reviewed & Not Pertinent Parental Family History Reviewed: Yes Children Family History Reviewed: Yes Sibling(s) Family History Reviewed.: Yes Medication/Allergy Home Medications: Acetaminophen [Tylenol] 650 mg PO Q4HP PRN 10/01/16 Amlodipine Besylate [Norvasc 5 mg Tablet] 5 mg PO DAILY 10/01/16 Atenolol [Tenormin] 25 mg PO DAILY 10/01/16 Cyanocobalamin (Vitamin B-12) [Vitamin B-12 Inj 1000 Mcg/1 ml Vial] 1,000 mcg IM .MONTHLY 10/01/16 Donepezil HCl [Aricept 5 mg Tablet] 5 mg PO QHS 10/01/16 Finasteride [Proscar 5 mg Tablet] 5 mg PO QHS 10/01/16 Haloperidol [Haldol 5 mg Tablet] 5 mg PO DAILYP PRN 10/01/16 Insulin Aspart [Novolog Insulin 100 Unit/1 ml 10 ml] 0 unit SUBCUT .SLIDING SCALE 10/01/16 Levetiracetam [Keppra 500 mg Tablet] 500 mg PO BID 10/01/16 Levothyroxine Sodium [Synthroid 50 Mcg Tablet] 50 mcg PO DAILY 10/01/16 Lisinopril [Zestril] 20 mg PO DAILY 10/01/16 Nystatin [Mycostatin Topical Powder 15 gm] 1 applic TP BID 10/01/16 Oxycodone HCl [Oxy-Ir 5 mg Tablet] 5 mg PO Q4HP PRN 10/01/16 Quetiapine Fumarate [Seroquel] 50 mg PO QHS 10/01/16 Tamsulosin HCl [Flomax 0.4 mg Cap.sr] 0.4 mg PO DAILY 10/01/16 Allergies/Adverse Reactions: codeine [Codeine] Allergy (Intermediate, Verified 07/14/16 07:25) severe N&V morphine [Morphine] Allergy (Intermediate, Verified 07/14/16 07:25) Hallucinations Review of Systems ROS unobtainable: Due to mental status Physical Exam Vital Signs: Temp Pulse Resp BP Pulse Ox 98.1 F 50 L 10 L 114/74 96 10/01/16 13:53 10/01/16 13:53 10/01/16 17:01 10/01/16 17:01 10/01/16 17:01 General appearance: PRESENT: no acute distress, thin, well-developed Head exam: PRESENT: atraumatic, normocephalic Eye exam: ABSENT: conjunctival injection, scleral icterus Mouth exam: PRESENT: moist. ABSENT: neck supple Neck exam: ABSENT: carotid bruit, lymphadenopathy Respiratory exam: PRESENT: clear to auscultation amari. ABSENT: accessory muscle use Cardiovascular exam: PRESENT: RRR, other - paced on the monitor with occasional [place] beats. ABSENT: systolic murmur Pulses: PRESENT: normal radial pulses, normal dorsalis pedis pul Vascular exam: PRESENT: normal capillary refill GI/Abdominal exam: PRESENT: normal bowel sounds, soft. ABSENT: tenderness - no grimace to palpation Extremities exam: ABSENT: pedal edema Musculoskeletal exam: ABSENT: full ROM - Rt hip with pain on palpation, no step off deformity or swelling or bruising that I can see Neurological exam: PRESENT: altered, awake, aphasic Skin exam: PRESENT: dry, warm Results Laboratory Results: 10/01/16 15:05 10/01/16 15:05 MCV 89 fl (80-97) 10/01/16 15:05 MCH 29.7 pg (27.0-33.4) 10/01/16 15:05 MCHC 33.5 g/dL (32.0-36.0) 10/01/16 15:05 RDW 15.4 % (11.5-14.0) H 10/01/16 15:05 Seg Neutrophils % 81.2 % (42-78) H 10/01/16 15:05 Lymphocytes % 12.9 % (13-45) L 10/01/16 15:05 Monocytes % 5.1 % (3-13) 10/01/16 15:05 Eosinophils % 0.4 % (0-6) 10/01/16 15:05 Basophils % 0.4 % (0-2) 10/01/16 15:05 Absolute Neutrophils 9.5 10^3/uL (1.7-8.2) H 10/01/16 15:05 Absolute Lymphocytes 1.5 10^3/uL (0.5-4.7) 10/01/16 15:05 Absolute Monocytes 0.6 10^3/uL (0.1-1.4) 10/01/16 15:05 Absolute Eosinophils 0.0 10^3/uL (0.0-0.6) 10/01/16 15:05 Absolute Basophils 0.0 10^3/uL (0.0-0.2) 10/01/16 15:05 Chloride 104 mmol/L (98-107) 10/01/16 15:05 Carbon Dioxide 25 mmol/L (22-30) 10/01/16 15:05 Anion Gap 9 (5-19) 10/01/16 15:05 Est GFR ( Amer) > 60 (>60) 10/01/16 15:05 Est GFR (Non-Af Amer) 59 (>60) L 10/01/16 15:05 Glucose 94 mg/dL (75-110) 10/01/16 15:05 Calcium 9.6 mg/dL (8.4-10.2) 10/01/16 15:05 Total Bilirubin 1.0 mg/dL (0.2-1.3) 10/01/16 15:05 AST 23 U/L (17-59) 10/01/16 15:05 ALT 28 U/L (21-72) 10/01/16 15:05 Alkaline Phosphatase 88 U/L (38-126) 10/01/16 15:05 Total Protein 6.7 g/dL (6.3-8.2) 10/01/16 15:05 Albumin 3.3 g/dL (3.5-5.0) L 10/01/16 15:05 Urine Color YELLOW 10/01/16 16:30 Urine Appearance SLIGHTLY-CLOUDY 10/01/16 16:30 Urine pH 5.0 (5.0-9.0) 10/01/16 16:30 Ur Specific [place] 1.014 10/01/16 16:30 Urine Protein 100 mg/dL (NEGATIVE) H 10/01/16 16:30 Urine Glucose (UA) NEGATIVE mg/dL (NEGATIVE) 10/01/16 16:30 Urine Ketones 20 mg/dL (NEGATIVE) H 10/01/16 16:30 Urine Blood MODERATE (NEGATIVE) H 10/01/16 16:30 Urine Nitrite NEGATIVE (NEGATIVE) 10/01/16 16:30 Ur Leukocyte Esterase NEGATIVE (NEGATIVE) 10/01/16 16:30 Urine WBC (Auto) 28 /HPF 10/01/16 16:30 Urine RBC (Auto) 50 /HPF 10/01/16 16:30 Impressions: Hip/Pelvis X-Ray 10/01/16 00:00 IMPRESSION: Acute right subcapital femoral neck fracture with mild varus angulation Cervical Spine CT 10/01/16 14:42 IMPRESSION: No acute fracture or malalignment. Central canal stenosis at C3-4 , bilateral foraminal narrowing at C3-4, C4-5, and C5-6. Head CT 10/01/16 14:42 IMPRESSION: CHRONIC CHANGES OF ATROPHY AND MICROVASCULAR ISCHEMIA. NO ACUTE PROCESS. Status: Image reviewed by me Assessment & Plan - Diagnosis (1) Fracture of femoral neck Qualifiers: Encounter type: initial encounter Fracture type: closed Laterality : right Qualified Code(s): S72.001A - Fracture of unspecified part of neck of right femur, initial encounter for closed fracture Is this a current diagnosis for this admission?: YesPlan: dr raya consulted by ER MD, await his instructions. he has no medical reason not to proceed with surgery and would likely do far worse without it, especially given low risk surgery and no prior hx of CAD or COPD. (2) Alzheimer's dementia Qualifiers: Alzheimer's disease onset: other onset Dementia behavioral disturbance : without behavioral disturbance Qualified Code(s): G30.8 - Other Alzheimer' s disease; F02.81 - Dementia in other diseases classified elsewhere with behavioral disturbance Is this a current diagnosis for this admission?: Yes (3) Do not resuscitate Is this a current diagnosis for this admission?: Yes (4) Hypertension Qualifiers: Hypertension type: essential hypertension Qualified Code(s): I10 - Essential (primary) hypertension Is this a current diagnosis for this admission?: Yes (5) Hypothyroid Qualifiers: Hypothyroidism type: acquired Qualified Code(s): E03.9 - Hypothyroidism, unspecified Is this a current diagnosis for this admission?: Yes (6) Pacemaker Is this a current diagnosis for this admission?: Yes (7) Vitamin B 12 deficiency Is this a current diagnosis for this admission?: Yes - Time Time Spent: 50 to 70 Minutes Medications reviewed and adjusted accordingly: Yes Anticipated discharge: SNF - return to [place] for post op care and rehab - Inpatient Certification Based on my medical assessment, after consideration of the patient's comorbidities, presenting symptoms, or acuity I expect that the services needed warrant INPATIENT care.: Yes I certify that my determination is in accordance with my understanding of Medicare's requirements for reasonable and necessary INPATIENT services [42 CFR 412.3e].: Yes Medical Necessity: Significant Comorbidiites Make Outpatient Treatment Too Risky , Need for Pain Control, Need for Surgery
[2016-10-01] MEDS: NORMAL SALINE 1000 ML 1,000 ML IV PRN (18:21)
[2016-10-01] MEDS: LORAZEPAM INJ 2 MG/1 ML VIAL IV PRN (18:23)
[2016-10-01] MEDS: HYDROMORPHONE HCL INJ/PF 2 MG/ML AMPULE IV PRN (18:25)
[2016-10-01] MEDS: LEVETIRACETAM 500 MG TABLET PO SCH (18:30)
[2016-10-01] MEDS: FINASTERIDE 5 MG TABLET PO SCH (22:39)
[2016-10-01] MEDS: QUETIAPINE FUMARATE 25 MG TABLET PO SCH (22:39)
[2016-10-01] MEDS: DONEPEZIL HCL 5 MG TABLET PO SCH (22:40)
[2016-10-02] MEDS: NORMAL SALINE 1000 ML 1,000 ML IV PRN ×2 (00:08→08:41)
[2016-10-02 06:08] LABS: ANION GAP 12 (5-19); BLOOD UREA NITROGEN 32 mg/dL (7-20); CARBON DIOXIDE 19 mmol/L (22-30); CHLORIDE 107 mmol/L (98-107); CREATININE RESULT 1.08 mg/dL (0.52-1.25); GLUCOSE 71 mg/dL (75-110); POTASSIUM 4.5 mmol/L (3.6-5.0); SODIUM 138.2 mmol/L (137-145)
[2016-10-02] MEDS: LORAZEPAM INJ 2 MG/1 ML VIAL IV PRN (06:51)
[2016-10-02] MEDS ORDERED: PHENYLEPHRINE HCL INJ/PF 10 MG/1 ML SDV ONE ×2 (07:53→07:54)
[2016-10-02] MEDS ORDERED: LIDOCAINE 2% INJ-PF (20 MG/ML) 10 ML AMPUL ONE (07:54)
[2016-10-02] MEDS: HYDROMORPHONE HCL INJ/PF 2 MG/ML AMPULE IV PRN ×2 (08:19→14:10)
[2016-10-02] MEDS ORDERED: (PENDING PHARMACY ID) (Atenolol [Tenormin] 25 MG) PO SCH (10:00)
--- NOTE | 2016-10-02 10:55 | EKG REPORT ---
SEVERITY:- ABNORMAL ECG - ATRIAL-PACED RHYTHM CONSIDER ANTEROSEPTAL INFARCT : Confirmed by: Megan Guerra 02-Oct-2016 10:54:53
[2016-10-02] MEDS ORDERED: THROMBIN (BOVINE) 5000 UNIT EPITAXIS KIT ONE ×2 (12:40→15:46)
[2016-10-02] MEDS ORDERED: BUPIVACAINE INJ/PF LIPOSOME/PF 266 MG/20 ML SDV ONE ×2 (12:41→15:46)
[2016-10-02] MEDS: DOCUSATE SODIUM 100 MG CAPSULE PO SCH (13:47)
[2016-10-02] MEDS: ENOXAPARIN SODIUM INJ 40 MG/0.4 ML DISP.SYRIN SUBCUT SCH (13:47)
[2016-10-02] MEDS: AMLODIPINE BESYLATE 5 MG TABLET PO SCH (13:49)
[2016-10-02] MEDS: TAMSULOSIN HCL 0.4 MG CAP.SR.24H PO SCH (13:49)
[2016-10-02] MEDS: LEVOTHYROXINE SODIUM 0.05 MG TABLET PO SCH (13:49)
[2016-10-02] MEDS: LEVETIRACETAM 500 MG TABLET PO SCH (13:50)
[2016-10-02] MEDS: ATENOLOL 50 MG TABLET PO SCH (13:51)
[2016-10-02] MEDS: PANTOPRAZOLE SODIUM 40 MG VIAL IV SCH (13:51)
--- NOTE | 2016-10-02 14:38 | PDOC PROGRESS REPORT ---
Subjective Progress Note for:: 10/02/16 Subjective:: reason for visit: f/u hip fracture, dementia, HTN hospital course: JOSH AMES is a 76 year old male presents from [place] where he resides due to advanced Alzheimer's Dementia after found down on floor and in pain; xray reveals Rt hip fracture and we were asked to admit for further eval and management including ortho consult. He is normally nonverbal, only occasional bursts of curse words is his baseline, though his indicates he is able to feed himself a regular consistency meal and liquids and ambulates without assistance in a slow shuffling gait. He is unable to provide ROS or medical history or even participate in his exam, he will not follow any commands. reports pacemaker placed for symptomatic bradycardia but he has no known ASCVD/CAD, smoked but quit decades ago and no history of COPD or chronic bronchitis/asthma. he broke his left hip requiring total replacement in the last year and she notes he was slow to wake up from anesthesia but seemed to tolerate the procedure okay, his mental state declined and never recovered. He used to hallucinate when given morphine but that was before the dementia set in. she isn't sure what pain meds he was given post op last time. he was admitted and pain well controlled awaiting surgical repair. ROS: unable to obtain due to mental state Physical Exam Vital Signs: Temp Pulse Resp BP Pulse Ox 97.7 F 87 14 177/87 H 96 10/02/16 13:00 10/02/16 13:00 10/02/16 13:00 10/02/16 13:00 10/02/16 13:00 Intake & Output 10/01/16 10/02/16 10/03/16 06:59 06:59 06:59 Intake Total 788 Balance 788 Weight 54.3 kg General appearance: PRESENT: no acute distress, thin, well-developed Head exam: PRESENT: atraumatic, normocephalic Eye exam: ABSENT: conjunctival injection, scleral icterus Mouth exam: PRESENT: moist. ABSENT: neck supple Neck exam: ABSENT: carotid bruit, lymphadenopathy Respiratory exam: PRESENT: clear to auscultation amari. ABSENT: accessory muscle use Cardiovascular exam: PRESENT: RRR, other - paced on the monitor with occasional unga beats. ABSENT: systolic murmur Pulses: PRESENT: normal radial pulses, normal dorsalis pedis pul Vascular exam: PRESENT: normal capillary refill GI/Abdominal exam: PRESENT: normal bowel sounds, soft. ABSENT: tenderness - no grimace to palpation Extremities exam: ABSENT: pedal edema Musculoskeletal exam: ABSENT: full ROM - Rt hip with pain on palpation, no step off deformity or swelling or bruising that I can see Neurological exam: PRESENT: altered, awake, aphasic Skin exam: PRESENT: dry, warm Results Laboratory Results: 10/02/16 05:07 10/02/16 05:07 Sodium 138.2 Potassium 4.5 Chloride 107 Carbon Dioxide 19 L Anion Gap 12 BUN 32 H Creatinine 1.08 Est GFR ( Amer) > 60 Est GFR (Non-Af Amer) > 60 Glucose 71 L Calcium 9.0 Assessment & Plan - Diagnosis (1) Fracture of femoral neck Qualifiers: Encounter type: initial encounter Fracture type: closed Laterality : right Qualified Code(s): S72.001A - Fracture of unspecified part of neck of right femur, initial encounter for closed fracture Is this a current diagnosis for this admission?: YesPlan: stable; awaiting ortho repair (2) Alzheimer's dementia Qualifiers: Alzheimer's disease onset: other onset Dementia behavioral disturbance : without behavioral disturbance Qualified Code(s): G30.8 - Other Alzheimer' s disease; F02.81 - Dementia in other diseases classified elsewhere with behavioral disturbance Is this a current diagnosis for this admission?: YesPlan: stable (3) Do not resuscitate Is this a current diagnosis for this admission?: Yes (4) Hypertension Qualifiers: Hypertension type: essential hypertension Qualified Code(s): I10 - Essential (primary) hypertension Is this a current diagnosis for this admission?: YesPlan: labile; worse with pain (5) Hypothyroid Qualifiers: Hypothyroidism type: acquired Qualified Code(s): E03.9 - Hypothyroidism, unspecified Is this a current diagnosis for this admission?: Yes (6) Pacemaker Is this a current diagnosis for this admission?: Yes (7) Vitamin B 12 deficiency Is this a current diagnosis for this admission?: Yes - Time Time Spent with patient: 15-24 minutes
[2016-10-02] MEDS ORDERED: HYDROMORPHONE HCL INJ/PF 2 MG/ML AMPULE ONE (15:29)
--- NOTE | 2016-10-02 15:29 | Physician Advisory Note ---
Physician Advisor ProgressNote .: Pursuant to the plan for [facility], I have reviewed the medical record for this patient. Physician Advisor Statement: Please avoid "copy/paste" of narrative info from note to note without editing/ summarizing, whenever possible. Thanks! CK
[2016-10-02] MEDS ORDERED: PROPOFOL INJ 200 MG/20 ML VIAL IV ONE (15:30)
[2016-10-02] MEDS ORDERED: MIDAZOLAM 2 MG/2 ML INJ ONE (15:30)
[2016-10-02] MEDS ORDERED: FENTANYL CITRATE INJ/PF 100 MCG/2 ML AMPUL ONE (15:30)
[2016-10-02] MEDS ORDERED: ACETAMINOPHEN 0 ML IV ONE (15:30)
[2016-10-02] MEDS ORDERED: KETAMINE HCL INJ 500 MG/10 ML VIAL ONE (15:46)
--- NOTE | 2016-10-02 17:08 | PDOC CONSULTATION ---
Consultation Consult Date: 10/01/16 Consult reason:: Right displaced femoral neck fracture History of Present Illness Admission Date/PCP: 10/01/16 17:28 AVRIL CABA Patient complains of: Right hip pain History of Present Illness: 76-year-old patient with advanced Alzheimer's dementia who is known to my practice after undergoing left hip hemiarthroplasty for fractured hip. Patient was found at nursing facility on the floor with an unwitnessed fall. Patient had significant pain in the right hip inability to apply weight. Patient was brought to the ER complaining of hip pain and lower extremity pain. After x- ray and once the patient was diagnosed with a displaced right femoral neck fracture. Patient was admitted for surgical intervention. History given by family and usp. Past Medical History Cardiac Medical History: Reports: Hypertension - meds x 4 years Denies: Coronary Artery Disease, Myocardial Infarction Pulmonary Medical History: Denies: Asthma, Bronchitis, Chronic Obstructive Pulmonary Disease (COPD), Pneumonia Neurological Medical History: Denies: Seizures Endocrine Medical History: Reports: Hypothyroidism Musculoskeltal Medical History: Reports: Arthritis - back Psychiatric Medical History: Reports: Dementia Denies: Depression Hematology: Denies: Anemia Past Surgical History Past Surgical History: Reports: Cholecystectomy, Herniorrhaphy - bilateral inguinal hernia repair, Orthopedic Surgery - fx l hip, Pacemaker - 2008, Other - Back surgery, prostate surgery Social History Smoking Status: Former Smoker Frequency of Alcohol Use: None Hx Recreational Drug Use: No Drugs: None Hx Prescription Drug Abuse: No - Advance Directive Resuscitation Status: Do Not Intubate Family History Family History: Reviewed & Not Pertinent Parental Family History Reviewed: No Children Family History Reviewed: No Sibling(s) Family History Reviewed.: No Medication/Allergy Home Medications: Acetaminophen [Tylenol] 650 mg PO Q4HP PRN 10/01/16 Amlodipine Besylate [Norvasc 5 mg Tablet] 5 mg PO DAILY 10/01/16 Atenolol [Tenormin] 25 mg PO DAILY 10/01/16 Cyanocobalamin (Vitamin B-12) [Vitamin B-12 Inj 1000 Mcg/1 ml Vial] 1,000 mcg IM .MONTHLY 10/01/16 Donepezil HCl [Aricept 5 mg Tablet] 5 mg PO QHS 10/01/16 Finasteride [Proscar 5 mg Tablet] 5 mg PO QHS 10/01/16 Haloperidol [Haldol 5 mg Tablet] 5 mg PO DAILYP PRN 10/01/16 Insulin Aspart [Novolog Insulin 100 Unit/1 ml 10 ml] 0 unit SUBCUT .SLIDING SCALE 10/01/16 Levetiracetam [Keppra 500 mg Tablet] 500 mg PO BID 10/01/16 Levothyroxine Sodium [Synthroid 50 Mcg Tablet] 50 mcg PO DAILY 10/01/16 Lisinopril [Zestril] 20 mg PO DAILY 10/01/16 Nystatin [Mycostatin Topical Powder 15 gm] 1 applic TP BID 10/01/16 Oxycodone HCl [Oxy-Ir 5 mg Tablet] 5 mg PO Q4HP PRN 10/01/16 Quetiapine Fumarate [Seroquel] 50 mg PO QHS 10/01/16 Tamsulosin HCl [Flomax 0.4 mg Cap.sr] 0.4 mg PO DAILY 10/01/16 Allergies/Adverse Reactions: codeine [Codeine] Allergy (Intermediate, Verified 07/14/16 07:25) severe N&V morphine [Morphine] Allergy (Intermediate, Verified 07/14/16 07:25) Hallucinations Review of Systems ROS unobtainable: Due to mental status Physical Exam Vital Signs: Temp Pulse Resp BP Pulse Ox 36.6 C 79 12 120/74 96 10/02/16 14:29 10/02/16 14:29 10/02/16 14:29 10/02/16 14:29 10/02/16 14:29 Intake & Output 10/01/16 10/02/16 10/03/16 06:59 06:59 06:59 Intake Total 788 Balance 788 Weight 54.3 kg General appearance: PRESENT: no acute distress Adult Front & Back Image: 1 - Patient does have a small deformity and shortening of the right hip but does extend and flex his digits and ankle to stimuli. He does have good capillary refill. Seems to have gross sensation to light touch. Tender to palpation over the right groin and hip. Any attempted range of motion of the hip causes significant pain. Results Laboratory Results: 10/02/16 05:07 10/02/16 05:07 Sodium 138.2 Potassium 4.5 Chloride 107 Carbon Dioxide 19 L Anion Gap 12 BUN 32 H Creatinine 1.08 Est GFR ( Amer) > 60 Est GFR (Non-Af Amer) > 60 Glucose 71 L Calcium 9.0 Impressions: Hip/Pelvis X-Ray 10/01/16 00:00 IMPRESSION: Acute right subcapital femoral neck fracture with mild varus angulation Cervical Spine CT 10/01/16 14:42 IMPRESSION: No acute fracture or malalignment. Central canal stenosis at C3-4 , bilateral foraminal narrowing at C3-4, C4-5, and C5-6. Head CT 10/01/16 14:42 IMPRESSION: CHRONIC CHANGES OF ATROPHY AND MICROVASCULAR ISCHEMIA. NO ACUTE PROCESS. Status: Image reviewed by me Assessment & Plan - Diagnosis (1) Fracture of femoral neck Qualifiers: Encounter type: initial encounter Fracture type: closed Laterality : right Qualified Code(s): S72.001A - Fracture of unspecified part of neck of right femur, initial encounter for closed fracture Is this a current diagnosis for this admission?: YesPlan: 76-year-old gentleman with advanced Alzheimer's dementia and history of left hemiarthroplasty due to fracture and now has a right displaced femoral neck fracture. I recommend due to the fact that the patient is ambulatory to proceed with a right hip hemiarthroplasty. Risks and benefits were discussed with the family Y no. They agreed to proceed with surgery. Patient family will like to keep DNR and DNI at all times even including in the OR. The meantime Diaz to gravity and bedrest with pain control.
[2016-10-02] MEDS ORDERED: CEFAZOLIN INJ 1 GM VIAL ONE (17:43)
[2016-10-02] MEDS ORDERED: FENTANYL CITRATE INJ/PF 100 MCG/2 ML AMPUL IV PRN ×3 (17:58)
[2016-10-02] MEDS ORDERED: DIPHENHYDRAMINE HCL 50 MG/ML VIAL IV PRN (17:58)
[2016-10-02] MEDS ORDERED: PROMETHAZINE HCL INJ 25 MG/1 ML VIAL IV PRN (17:58)
[2016-10-02] MEDS ORDERED: OXYCODONE HCL IR 5 MG TABLET PO PRN ×2 (19:07→19:08)
--- NOTE | 2016-10-02 19:11 | Operative Report ---
Operative Report DATE OF SURGERY: 10/02/16 PREOPERATIVE DIAGNOSIS: Displaced right femoral neck fracture POSTOPERATIVE DIAGNOSIS: Same OPERATION: Right hip hemiarthroplasty SURGEON: ANY BERMEO ANESTHESIA: GA TISSUE REMOVED OR ALTERED: None COMPLICATIONS: None ESTIMATED BLOOD LOSS: 100 mL INTRAOPERATIVE FINDINGS: As above PROCEDURE: Procedure In Detail: Patient was seen and evaluated in the preoperative holding area. The right lower extremity was initialized and marked. Patient received 2g of Ancef IV for bacterial prophylaxis. Patient was taken back to the operative room where transferred to the operative table and placed under spinal anesthesia. Once they were adequately anesthetized patient was placed in the lateral position an axillary roll was placed in nonoperative left lower extremity was carefully padded.. A surgical team debriefing was performed ensuring all instrumentation was available, the surgical procedure was discussed with possible concerns reviewed. The right lower extremity was prepped with chlor prep draped in a sterile fashion. A timeout was done identifying correct patient, procedure and extremity everyone in attendance agree with this and verbalized no concerns. A posterior skin incision was made just posterior to the greater trochanter. Dissection was done down to the gluteus minh and iliotibial band fascia this was split in line with the skin incision. Any peripheral vasculature was carefully coagulated. A Charley retractor was placed after palpation of the sciatic nerve and the sciatic nerve was safely retracted from the wound throughout the entirety of the case. I then identified the external rotators with the use of a Bovie this was carefully elevated off along with underlying capsule from the neck in a T-shaped capsulotomy was made just superior to the piriformis. This was then tagged. The femoral neck was identified and approximately 1 fingerbreadth above the lesser trochanter a freshening cut was made. Any excess bone remaining was carefully removed. I then used the corkscrew to remove the femoral head from the acetabulum which was then measured on the back table. The excess bone was removed and removed the scopes irrigated with normal saline. I then trial the femoral head according to what was measured on the back table and got good fit within the acetabulum. I then turned my attention to femoral preparation. A box osteotome was first used to get laterally along the trochanter. I then used the lateralizing reamer to avoid medialization of the stem and ultimately varus malalignment. I then began broaching with a 0 broach and broached up to a #9 broach which was somewhat countersunk. I then utilized the calcar reamer reamed out the appropriate level. I then broached up to a #10 broach which I got good proximal fit. I began trialing with a -3mm neck length and had good stability through flexion, internal rotation and adduction. There is no instability with external rotation. Leg lengths were found to be compatible and equal to the other side. At this point the trial implants were removed. The wound was irrigated with normal saline. I then implanted my appropriate size stem the good peripheral fit and placement at my predetermined broach level. I then implanted the final unipolar head. The hip was reduced once again measures stability and good stability throughout all range of motion with no palpable impingement. Leg lengths were equivalent to the nonoperative side. I then want to get suyapa irrigated the wound with normal saline. Utilizing a #1 Vicryl suture I secured the capsule posteriorly into the trochanter. I then irrigated once again with normal saline. The gluteus minh and tensor fascia reynold was closed with a 0 Vicryl suture. I then injected Exparel in multiple locations throughout the subcutaneous tissues, hip wound and the fascia. I then closed the subcutaneous tissues with interrupted 2 -0 Vicryl suture. The skin was closed with pamela and then covered with Acticoat. A sterile OpSite dressing was then placed. Sponge counts, instrument counts and needle counts were correct. Patient was then awoken from anesthesia laid supine at which point her leg lengths were once again checked and found to be equal to the nonoperative extremity. Patient was then transferred to the operating stretcher and placed in an abduction pillow. The was no intraoperative crepitations patient tolerated she will was stable to PACU. Postoperative plan: Patient will be started on Lovenox for DVT prophylaxis. She will begin physical therapy on postop day #1. Implants: Accolade II Size 10, 49 Bipolar Head, -3mm Neck Length
[2016-10-02 22:21] LABS: ARTERIAL BLOOD BASE EXCESS -4.7 mmol/L
[2016-10-02] MEDS ORDERED: DEXTROSE 40% GEL 15 GM TUBE PO PRN ×2 (22:24)
[2016-10-02] MEDS ORDERED: DEXTROSE 50%-WATER 25 GM/50 ML DISP.SYRIN IV PRN ×2 (22:24)
[2016-10-02] MEDS ORDERED: GLUCAGON,HUMAN RECOMB 1 MG INJ SUBCUT PRN (22:24)
--- NOTE | 2016-10-02 22:38 | RADIOLOGY REPORT (SQ) ---
EXAM DESCRIPTION: CHEST SINGLE VIEW COMPLETED DATE/TIME: 10/02/2016 10:27 pm REASON FOR STUDY: Resp Distress COMPARISON: 06/11/2016 EXAM PARAMETERS: NUMBER OF VIEWS: One view. TECHNIQUE: Single frontal radiographic view of the chest acquired. RADIATION DOSE: NA LIMITATIONS: None. FINDINGS: LUNGS AND PLEURA: Lung jack are hyperexpanded. Battery pack and leads are in place. No consolidation or effusions. MEDIASTINUM AND HILAR STRUCTURES: No masses. Contour normal. HEART AND VASCULAR STRUCTURES: Heart normal in size. Normal vasculature. BONES: No acute findings. HARDWARE: None in the chest. OTHER: No other significant finding. IMPRESSION: COPD. No acute findings TECHNICAL DOCUMENTATION: JOB ID: [id number]
[2016-10-02 23:38] LABS: HEMATOCRIT 30.4 % (37.9-51.0); HGB HCT DIFFERENCE -0.4; MEAN CORPUSCULAR HEMOGLOBIN 29.5 pg (27.0-33.4); MEAN CORPUSCULAR HGB CONC 32.8 g/dL (32.0-36.0); MEAN CORPUSCULAR VOLUME 90 fl (80-97); RED BLOOD COUNT 3.38 10^6/uL (4.35-5.55); RED CELL DISTRIBUTION WIDTH 15.5 % (11.5-14.0); WHITE BLOOD COUNT 11.6 10^3/uL (4.0-10.5)
[2016-10-02 23:53] LABS: BAND NEUTROPHILS % (MANUAL) 1 % (3-5); BASOPHILS % (MANUAL) 0 % (0-2); EOSINOPHILS % (MANUAL) 0 % (0-6); LYMPHOCYTES % (MANUAL) 12 % (13-45); TOTAL CELLS COUNTED 100
[2016-10-02 23:54] LABS: ANION GAP 11 (5-19); BLOOD UREA NITROGEN 31 mg/dL (7-20); CALCIUM 8.9 mg/dL (8.4-10.2); CARBON DIOXIDE 21 mmol/L (22-30); CHLORIDE 108 mmol/L (98-107); GLUCOSE 88 mg/dL (75-110); MAGNESIUM 1.7 mg/dL (1.6-2.3); POTASSIUM 4.1 mmol/L (3.6-5.0); SODIUM 139.5 mmol/L (137-145); TOXIC GRANULATION 1+
[2016-10-02 23:55] LABS: ANISOCYTOSIS SLIGHT; BURR CELLS SLIGHT; OVALOCYTES SLIGHT; POIKILOCYTOSIS SLIGHT; TEAR DROP CELLS SLIGHT
[2016-10-03] MEDS: DONEPEZIL HCL 5 MG TABLET PO SCH ×2 (00:04→22:26)
[2016-10-03] MEDS: QUETIAPINE FUMARATE 25 MG TABLET PO SCH ×2 (00:04→22:26)
[2016-10-03] MEDS: LEVETIRACETAM 500 MG TABLET PO SCH ×3 (00:04→18:09)
[2016-10-03] MEDS: FINASTERIDE 5 MG TABLET PO SCH ×2 (00:04→22:26)
[2016-10-03] MEDS: CEFAZOLIN 2 GM/D5W RTU 2 GM/50 ML RTUPB IV SCH ×2 (02:00→12:11)
--- NOTE | 2016-10-03 02:57 | RADIOLOGY REPORT (SQ) ---
EXAM DESCRIPTION: NM LUNG PERFUSION SCAN COMPLETED DATE/TIME: 10/03/2016 2:10 am REASON FOR STUDY: elev d dimer COMPARISON: None. RADIONUCLIDE AND DOSE: 5.0 millicuries TC-99m MAA The route of agent administration: Intravenous TECHNIQUE: Eight views of the lungs acquired following injection of MAA. LIMITATIONS: None. FINDINGS: PERFUSION: Left cardiac stimulation device. No segmental defects to suggest pulmonary emb olus. OTHER: No other significant finding. IMPRESSION: No evidence of pulmonary embolus (very low probability). TECHNICAL DOCUMENTATION: JOB ID: [id number] [employer]- All Rights Reserved
[2016-10-03 06:09] LABS: HEMATOCRIT 28.4 % (37.9-51.0); HEMOGLOBIN 9.5 g/dL (13.5-17.0); HGB HCT DIFFERENCE 0.1; MEAN CORPUSCULAR HEMOGLOBIN 30.1 pg (27.0-33.4); MEAN CORPUSCULAR HGB CONC 33.6 g/dL (32.0-36.0); MEAN CORPUSCULAR VOLUME 90 fl (80-97); RED BLOOD COUNT 3.17 10^6/uL (4.35-5.55); RED CELL DISTRIBUTION WIDTH 15.6 % (11.5-14.0); WHITE BLOOD COUNT 13.3 10^3/uL (4.0-10.5)
[2016-10-03 06:33] LABS: ANION GAP 11 (5-19); BLOOD UREA NITROGEN 30 mg/dL (7-20); CARBON DIOXIDE 22 mmol/L (22-30); CHLORIDE 108 mmol/L (98-107); CREATININE RESULT 1.25 mg/dL (0.52-1.25); GLUCOSE 92 mg/dL (75-110); POTASSIUM 4.2 mmol/L (3.6-5.0); SODIUM 140.6 mmol/L (137-145)
--- NOTE | 2016-10-03 09:38 | RADIOLOGY REPORT (SQ) ---
EXAM DESCRIPTION: HIP RIGHT AP/LATERAL COMPLETED DATE/TIME: 10/03/2016 7:45 am REASON FOR STUDY: Post hip surgery COMPARISON: Right hip films 10/01/2016 NUMBER OF VIEWS: Two views. TECHNIQUE: AP pelvis and additional frog-leg view of the right hip. LIMITATIONS: None. FINDINGS: MINERALIZATION: Osteopenic RIGHT HIP: Post right hip surgery with non cemented hip replacement. Hardware in good alignment. LEFT HIP: Old left hip replacement in good alignment PUBIS AND ISCHIUM: No fracture. PELVIS: No gross fracture SACRUM: No fracture or dislocation. No worrisome bone lesions. LOWER LUMBAR SPINE: No fracture or dislocation. No worrisome bone lesions. No significant disc disea se. SOFT TISSUES: Right hip superficial skin pamela. OTHER: Diaz catheter in the bladder IMPRESSION: Post right hip replacement in good alignment. TECHNICAL DOCUMENTATION: JOB ID: [id number] [facility] [employer]- All Rights Reserved
--- NOTE | 2016-10-03 10:45 | Progress Note ---
Provider Note Provider Note: October 02, 2016: During the evening hours, I was contacted by patient's floor nurse, stating that patient was noted to be hypoxic, with saturations in the low to mid 70 percentile range, shortly after arriving from recovery room. Rapid response was called. I went to the bedside shortly thereafter. Multiple nursing staff were present, along with respiratory therapy, and patient's . Dr. Arauz, patient's anesthesiologist came short while later. Patient was noted to be somnolent, although did withdraw with both trapezius pinch and sternal rub. BiPAP had been applied, which was subsequently changed to CPAP. Saturations tana slowly but steadily into a quite acceptable range. Auscultation of the lungs revealed clear breath sounds. Pupils equal and reactive to light at 4 mm. stated that similar situation occurred after his previous hip repair earlier this year. Blood pressures remained in a quite acceptable range. With passage of time, patient did become somewhat more alert, although kept eyes tightly shut. Baseline is nonverbal, according to . Severe underlying dementia. Labs and EKG were ordered, along with chest x-ray. Overall impression and plans were discussed with . Per nursing staff, saturations preoperatively were in the mid 90 percentile range on room air. With this gentlemen's hypoxemia despite supplemental oxygen , d-dimer was obtained. Elevated level. Subsequent VQ scan was performed, revealing very low probability for pulmonary embolus. 40 minutes critical care time spent in evaluation management of patient, including direct patient evaluation, chart review, discussion with nursing staff , discussion with , in discussion with patient's anesthesiologist. Lab review was also performed, along with EKG review, and chest x-ray report review.
[2016-10-03] MEDS: ENOXAPARIN SODIUM INJ 40 MG/0.4 ML DISP.SYRIN SUBCUT SCH (11:49)
[2016-10-03] MEDS: HYDROMORPHONE HCL INJ/PF 2 MG/ML AMPULE IV PRN (11:50)
[2016-10-03] MEDS: LEVOTHYROXINE SODIUM 0.05 MG TABLET PO SCH (11:56)
[2016-10-03] MEDS: ATENOLOL 50 MG TABLET PO SCH (11:56)
[2016-10-03] MEDS: DOCUSATE SODIUM 100 MG CAPSULE PO SCH (11:56)
[2016-10-03] MEDS: AMLODIPINE BESYLATE 5 MG TABLET PO SCH (11:56)
[2016-10-03] MEDS: TAMSULOSIN HCL 0.4 MG CAP.SR.24H PO SCH (11:56)
[2016-10-03] MEDS: PANTOPRAZOLE SODIUM 40 MG VIAL IV SCH (11:56)
[2016-10-03] MEDS ORDERED: CEFAZOLIN 2 GM/D5W RTU 2 GM/50 ML RTUPB IV ONE (13:00)
--- NOTE | 2016-10-03 13:23 | EKG REPORT ---
SEVERITY:- ABNORMAL ECG - SINUS RHYTHM BORDERLINE LEFT AXIS DEVIATION CONSIDER ANTEROSEPTAL INFARCT : Confirmed by: Megan Guerra 03-Oct-2016 13:22:48
--- NOTE | 2016-10-03 13:50 | PDOC PROGRESS REPORT ---
Subjective Progress Note for:: 10/03/16 Subjective:: reason for visit: f/u hip fracture, dementia, HTN hospital course: JOSH AMES is a 76 year old male presents from [place] where he resides due to advanced Alzheimer's Dementia after found down on floor and in pain; xray reveals Rt hip fracture and we were asked to admit for further eval and management including ortho consult. He is normally nonverbal, only occasional bursts of curse words is his baseline, though his indicates he is able to feed himself a regular consistency meal and liquids and ambulates without assistance in a slow shuffling gait. He is unable to provide ROS or medical history or even participate in his exam, he will not follow any commands. reports pacemaker placed for symptomatic bradycardia but he has no known ASCVD/CAD, smoked but quit decades ago and no history of COPD or chronic bronchitis/asthma. he broke his left hip requiring total replacement in the last year and she notes he was slow to wake up from anesthesia but seemed to tolerate the procedure okay, his mental state declined and never recovered. He used to hallucinate when given morphine but that was before the dementia set in. she isn't sure what pain meds he was given post op last time. he underwent surgical repair without complication during the procedure but post op course complicated by hypoxia for unclear reasons beyond somnolence in the setting of advanced dementia. He has required BiPAP since return from the PACU for persistent hypoxia. CXR is clear, ABG shows hypoxia with A-a gradient but VQ scan was low probability for PE, ecg shows no acute changes and his cardiac enzymes are equivocal. He remains unable to provide ROS to help sort this out. ROS: unable to obtain due to mental state Physical Exam Vital Signs: Temp Pulse Resp BP Pulse Ox 98.5 F 62 15 91/73 L 100 10/03/16 08:47 10/03/16 08:47 10/03/16 08:47 10/03/16 08:47 10/03/16 13:00 Intake & Output 10/02/16 10/03/16 10/04/16 06:59 06:59 06:59 Intake Total 7623 Output Total 3640 Balance 5693 Weight 54.3 kg 54.4 kg General appearance: PRESENT: no acute distress, thin, well-developed, much more animated this morning Head exam: PRESENT: atraumatic, normocephalic Eye exam: ABSENT: conjunctival injection, scleral icterus Mouth exam: PRESENT: moist. ABSENT: neck supple Neck exam: ABSENT: carotid bruit, lymphadenopathy Respiratory exam: PRESENT: clear to auscultation amari. ABSENT: accessory muscle use, no resp distress, seems to tolerate the BIPAP mask surprisingly well Cardiovascular exam: PRESENT: RRR, other - paced on the monito. ABSENT: systolic murmur, JVD Pulses: PRESENT: normal radial pulses, normal dorsalis pedis pul Vascular exam: PRESENT: normal capillary refill GI/Abdominal exam: PRESENT: normal bowel sounds, soft. ABSENT: tenderness - no grimace to palpation Extremities exam: ABSENT: pedal edema Musculoskeletal exam: ABSENT: full ROM - Rt hip with pain on palpation, wound is c/d/i Neurological exam: PRESENT: altered, awake, aphasic Skin exam: PRESENT: dry, warm Results Laboratory Results: 10/03/16 05:47 10/03/16 05:47 10/02/16 10/02/16 10/02/16 22:00 23:18 23:18 WBC 11.6 H RBC 3.38 L Hgb 10.0 L Hct 30.4 L MCV 90 MCH 29.5 MCHC 32.8 RDW 15.5 H Plt Count 292 Seg Neutrophils % Not Reportable Lymphocytes % Not Reportable Monocytes % Not Reportable Eosinophils % Not Reportable Basophils % Not Reportable Absolute Neutrophils Not Reportable Absolute Lymphocytes Not Reportable Absolute Monocytes Not Reportable Absolute Eosinophils Not Reportable Absolute Basophils Not Reportable Carbonic Acid 1.04 L HCO3/H2CO3 Ratio 19:1 ABG pH 7.38 ABG pCO2 34.7 L ABG pO2 75.7 L ABG HCO3 19.8 L ABG O2 Saturation 95.0 ABG Base Excess -4.7 FiO2 100% Sodium 139.5 Potassium 4.1 Chloride 108 H Carbon Dioxide 21 L Anion Gap 11 BUN 31 H Creatinine 1.20 Est GFR ( Amer) > 60 Est GFR (Non-Af Amer) 59 L Glucose 88 Calcium 8.9 Magnesium 1.7 TSH 10/02/16 10/03/16 10/03/16 23:18 05:47 05:47 WBC 13.3 H RBC 3.17 L Hgb 9.5 L Hct 28.4 L MCV 90 MCH 30.1 MCHC 33.6 RDW 15.6 H Plt Count 297 Seg Neutrophils % Lymphocytes % Monocytes % Eosinophils % Basophils % Absolute Neutrophils Absolute Lymphocytes Absolute Monocytes Absolute Eosinophils Absolute Basophils Carbonic Acid HCO3/H2CO3 Ratio ABG pH ABG pCO2 ABG pO2 ABG HCO3 ABG O2 Saturation ABG Base Excess FiO2 Sodium 140.6 Potassium 4.2 Chloride 108 H Carbon Dioxide 22 Anion Gap 11 BUN 30 H Creatinine 1.25 Est GFR ( Amer) > 60 Est GFR (Non-Af Amer) 56 L Glucose 92 Calcium 9.0 Magnesium TSH 12.40 H 10/02/16 10/03/16 23:18 05:47 Troponin I 0.063 0.066 Impressions: Cervical Spine CT 10/01/16 14:42 IMPRESSION: No acute fracture or malalignment. Central canal stenosis at C3-4 , bilateral foraminal narrowing at C3-4, C4-5, and C5-6. Head CT 10/01/16 14:42 IMPRESSION: CHRONIC CHANGES OF ATROPHY AND MICROVASCULAR ISCHEMIA. NO ACUTE PROCESS. Chest X-Ray 10/02/16 00:00 IMPRESSION: COPD. No acute findings Lung Scan-VQ NM 10/03/16 00:41 IMPRESSION: No evidence of pulmonary embolus (very low probability). Hip/Pelvis X-Ray 10/03/16 08:00 IMPRESSION: Post right hip replacement in good alignment. Status: Imported from PACS Assessment & Plan - Diagnosis (1) Acute respiratory failure with hypoxia Is this a current diagnosis for this admission?: YesPlan: unclear etiology but I suspect related to prolonged effect of anesthesia and will hopefully wear off with time; continue BiPAP as needed to maintain adequate O2 sats >90% (2) Fracture of femoral neck Qualifiers: Encounter type: initial encounter Fracture type: closed Laterality : right Qualified Code(s): S72.001A - Fracture of unspecified part of neck of right femur, initial encounter for closed fracture Is this a current diagnosis for this admission?: YesPlan: s/p surgical repair; wound care and rehab per ortho (3) Alzheimer's dementia Qualifiers: Alzheimer's disease onset: other onset Dementia behavioral disturbance : without behavioral disturbance Qualified Code(s): G30.8 - Other Alzheimer' s disease; F02.81 - Dementia in other diseases classified elsewhere with behavioral disturbance Is this a current diagnosis for this admission?: YesPlan: severe and likely affecting his recovery and response to meds including anesthesia (4) Do not resuscitate Is this a current diagnosis for this admission?: Yes (5) Hypertension Qualifiers: Hypertension type: essential hypertension Qualified Code(s): I10 - Essential (primary) hypertension Is this a current diagnosis for this admission?: YesPlan: atually a bit hypotensive likely due to continued use of antiHTN meds and lack of oral intake; place holding parameters on beta josé luis and d/c the CCB, continue IVFs and monitor for response (6) Hypothyroid Qualifiers: Hypothyroidism type: acquired Qualified Code(s): E03.9 - Hypothyroidism, unspecified Is this a current diagnosis for this admission?: Yes (7) Pacemaker Is this a current diagnosis for this admission?: Yes (8) Vitamin B 12 deficiency Is this a current diagnosis for this admission?: Yes - Time Time Spent with patient: 25-34 minutes Medications reviewed and adjusted accordingly: Yes
[2016-10-03] MEDS ORDERED: HYDROMORPHONE HCL INJ/PF 2 MG/ML AMPULE IV PRN (14:04)
[2016-10-03] MEDS ORDERED: ATENOLOL 50 MG TABLET PO ONE (15:00)
[2016-10-03] MEDS: RINGERS SOLUTION,LACTATED 1,000 ML IV PRN (22:27)
[2016-10-04] MEDS: RINGERS SOLUTION,LACTATED 1,000 ML IV PRN (06:00)
[2016-10-04 06:13] LABS: HEMATOCRIT 23.8 % (37.9-51.0); HEMOGLOBIN 8.1 g/dL (13.5-17.0); HGB HCT DIFFERENCE 0.5; MEAN CORPUSCULAR HEMOGLOBIN 30.3 pg (27.0-33.4); MEAN CORPUSCULAR HGB CONC 34.3 g/dL (32.0-36.0); MEAN CORPUSCULAR VOLUME 88 fl (80-97); RED BLOOD COUNT 2.69 10^6/uL (4.35-5.55); RED CELL DISTRIBUTION WIDTH 15.4 % (11.5-14.0); WHITE BLOOD COUNT 13.1 10^3/uL (4.0-10.5)
[2016-10-04 06:37] LABS: ANION GAP 8 (5-19); BLOOD UREA NITROGEN 32 mg/dL (7-20); CALCIUM 8.7 mg/dL (8.4-10.2); CARBON DIOXIDE 22 mmol/L (22-30); CHLORIDE 107 mmol/L (98-107); GLUCOSE 112 mg/dL (75-110); POTASSIUM 4.2 mmol/L (3.6-5.0); SODIUM 137.2 mmol/L (137-145)
--- NOTE | 2016-10-04 08:31 | PDOC PROGRESS REPORT ---
Subjective Progress Note for:: 10/04/16 Subjective:: reason for visit: f/u hip fracture, dementia, HTN hospital course: JOSH AMES is a 76 year old male presents from [place] where he resides due to advanced Alzheimer's Dementia after found down on floor and in pain; xray reveals Rt hip fracture and we were asked to admit for further eval and management including ortho consult. He is normally nonverbal, only occasional bursts of curse words is his baseline, though his indicates he is able to feed himself a regular consistency meal and liquids and ambulates without assistance in a slow shuffling gait. He is unable to provide ROS or medical history or even participate in his exam, he will not follow any commands. reports pacemaker placed for symptomatic bradycardia but he has no known ASCVD/CAD, smoked but quit decades ago and no history of COPD or chronic bronchitis/asthma. he broke his left hip requiring total replacement in the last year and she notes he was slow to wake up from anesthesia but seemed to tolerate the procedure okay, his mental state declined and never recovered. He used to hallucinate when given morphine but that was before the dementia set in. she isn't sure what pain meds he was given post op last time. he underwent surgical repair without complication during the procedure but post op course complicated by hypoxia for unclear reasons beyond somnolence in the setting of advanced dementia. He initially required BiPAP after return from the PACU for persistent hypoxia, CXR was clear, ABG shows hypoxia with A-a gradient but VQ scan was low probability for PE, ecg shows no acute changes and his cardiac enzymes are equivocal and trended down. He was weaned off the BiPAP to NC with minimal O2 requirements by the next morning. His sparks started to show hematuria which his family indicates is a common problem and "a special catheter" is often required so he was changed to Kuday and urine started to clear. He remains unable to provide ROS to help sort this out. He remains in restraints since surgery as he constantly pulls at sparks, IV site and digs at his surgical site/wound/dressing when not restrained. ROS: unable to obtain due to mental state Physical Exam Vital Signs: Temp Pulse Resp BP Pulse Ox 98.2 F 80 15 127/63 H 100 10/03/16 23:00 10/03/16 23:00 10/03/16 23:00 10/03/16 23:00 10/04/16 04:00 Pulse Oximeter Continuous Start: 10/02/16 23: 22 Freq: Status: Complete Document 10/02/16 22:00 [facility] (Rec: 10/02/16 23:24 [facility] [email or web address]) Pulse Oximetry Assessment Oxygen Saturation (92-100) 98 Oxygen Delivery Method Non-Rebreather Fraction of Inspired Oxygen (FIO2) 100 Equipment Usage Initial Set Up Continuous Pulse Oximeter 24 Hour Charge Charge Now Continuous SpO2 Machine # [id number] Pulse Oximeter Continuous Start: 10/03/16 00: 03 Freq: RTQ4 Status: Active Document 10/04/16 04:00 [facility] (Rec: 10/04/16 05:34 [facility] [email or web address]) Pulse Oximetry Assessment Oxygen Saturation (92-100) 100 Oxygen Flow Rate (L/min) 1 Oxygen Delivery Method Nasal Cannula Fraction of Inspired Oxygen (FIO2) 24 Equipment Usage Equipment in Use Continuous SpO2 Machine # 6 Intake & Output 10/03/16 10/04/16 10/05/16 06:59 06:59 06:59 Intake Total 7623 2858 Output Total 1930 700 Balance 5693 2158 Weight 54.4 kg 54.3 kg Results Laboratory Results: 10/04/16 05:17 10/04/16 05:17 10/04/16 10/04/16 05:17 05:17 WBC 13.1 H RBC 2.69 L Hgb 8.1 L Hct 23.8 L MCV 88 MCH 30.3 MCHC 34.3 RDW 15.4 H Plt Count 249 Sodium 137.2 Potassium 4.2 Chloride 107 Carbon Dioxide 22 Anion Gap 8 BUN 32 H Creatinine 1.10 Est GFR ( Amer) > 60 Est GFR (Non-Af Amer) > 60 Glucose 112 H Calcium 8.7 10/02/16 10/03/16 10/03/16 23:18 05:47 12:29 Troponin I 0.063 0.066 0.046 Impressions: Cervical Spine CT 10/01/16 14:42 IMPRESSION: No acute fracture or malalignment. Central canal stenosis at C3-4 , bilateral foraminal narrowing at C3-4, C4-5, and C5-6. Head CT 10/01/16 14:42 IMPRESSION: CHRONIC CHANGES OF ATROPHY AND MICROVASCULAR ISCHEMIA. NO ACUTE PROCESS. Chest X-Ray 10/02/16 00:00 IMPRESSION: COPD. No acute findings Lung Scan-VQ NM 10/03/16 00:41 IMPRESSION: No evidence of pulmonary embolus (very low probability). Hip/Pelvis X-Ray 10/03/16 08:00 IMPRESSION: Post right hip replacement in good alignment. Assessment & Plan - Diagnosis (1) Acute respiratory failure with hypoxia Is this a current diagnosis for this admission?: YesPlan: improved and almost back to baseline, I suspect related to prolonged effect of anesthesia and will hopefully wear off with time; intermittent BiPAP as needed to maintain adequate O2 sats >90% or for increased WOB. (2) Fracture of femoral neck Qualifiers: Encounter type: initial encounter Fracture type: closed Laterality : right Qualified Code(s): S72.001A - Fracture of unspecified part of neck of right femur, initial encounter for closed fracture Is this a current diagnosis for this admission?: YesPlan: s/p surgical repair; wound care and rehab per ortho (3) Alzheimer's dementia Qualifiers: Alzheimer's disease onset: other onset Dementia behavioral disturbance : without behavioral disturbance Qualified Code(s): G30.8 - Other Alzheimer' s disease; F02.81 - Dementia in other diseases classified elsewhere with behavioral disturbance Is this a current diagnosis for this admission?: YesPlan: severe and likely affecting his recovery and response to meds including anesthesia. continue restraints as needed to protect lifelines/interventions (4) Do not resuscitate Is this a current diagnosis for this admission?: Yes (5) Hypertension Qualifiers: Hypertension type: essential hypertension Qualified Code(s): I10 - Essential (primary) hypertension Is this a current diagnosis for this admission?: YesPlan: fluctuating, better so far this morning; continue holding parameters on beta josé luis and d/c'd the CCB, continue IVFs due to poor oral intake and monitor for response (6) Hematuria Qualifiers: Hematuria type: unspecified type Qualified Code(s): R31.9 - Hematuria, unspecified Is this a current diagnosis for this admission?: YesPlan: new; likely related to BPH and trauma from the sparks either with insertion or him pulling at it; continue Kuday for now and monitor for clearing, hesitant to remove given risk for clot occlusion of the urethra. (7) Hypothyroid Qualifiers: Hypothyroidism type: acquired Qualified Code(s): E03.9 - Hypothyroidism, unspecified Is this a current diagnosis for this admission?: Yes (8) Pacemaker Is this a current diagnosis for this admission?: Yes (9) Vitamin B 12 deficiency Is this a current diagnosis for this admission?: Yes - Time Time Spent with patient: 25-34 minutes Medications reviewed and adjusted accordingly: Yes Anticipated discharge: SNF Within: within 48 hours
[2016-10-04] MEDS: ENOXAPARIN SODIUM INJ 40 MG/0.4 ML DISP.SYRIN SUBCUT SCH (10:30)
[2016-10-04] MEDS: ATENOLOL 50 MG TABLET PO SCH (10:31)
[2016-10-04] MEDS: TAMSULOSIN HCL 0.4 MG CAP.SR.24H PO SCH (10:32)
[2016-10-04] MEDS: LEVOTHYROXINE SODIUM 0.05 MG TABLET PO SCH (10:32)
[2016-10-04] MEDS: DOCUSATE SODIUM 100 MG CAPSULE PO SCH (10:32)
[2016-10-04] MEDS: PANTOPRAZOLE SODIUM 40 MG VIAL IV SCH (10:33)
[2016-10-04] MEDS: LEVETIRACETAM 500 MG TABLET PO SCH ×2 (10:33→17:44)
--- NOTE | 2016-10-04 16:22 | PDOC PROGRESS REPORT ---
Subjective Progress Note for:: 10/03/16 Subjective:: Patient with dementia Alzheimer. Family at bedside. No issues overnight. Physical Exam Vital Signs: Temp Pulse Resp BP Pulse Ox 37.0 C 78 18 147/69 H 99 10/03/16 11:31 10/03/16 16:45 10/03/16 16:45 10/03/16 11:31 10/03/16 16:45 Pulse Oximeter Continuous Start: 10/02/16 23: 22 Freq: Status: Complete Document 10/02/16 22:00 [facility] (Rec: 10/02/16 23:24 [facility] [email or web address]) Pulse Oximetry Assessment Oxygen Saturation (92-100) 98 Oxygen Delivery Method Non-Rebreather Fraction of Inspired Oxygen (FIO2) 100 Equipment Usage Initial Set Up Continuous Pulse Oximeter 24 Hour Charge Charge Now Continuous SpO2 Machine # N-6 Pulse Oximeter Continuous Start: 10/03/16 00: 03 Freq: RTQ4 Status: Active Document 10/03/16 16:45 [facility] (Rec: 10/03/16 17:50 [facility] [email or web address]) Pulse Oximetry Assessment Oxygen Saturation (92-100) 99 Oxygen Flow Rate (L/min) 1 Oxygen Delivery Method Nasal Cannula Equipment Usage Equipment in Use Continuous SpO2 Machine # [id number] Intake & Output 10/02/16 10/03/16 10/04/16 06:59 06:59 06:59 Intake Total 7623 120 Output Total 1930 300 Balance 5693 -180 Weight 54.3 kg 54.4 kg Adult Front & Back Image: 1 - Dressing is dry clean and intact. Mild ecchymosis. Leg lengths are grossly equal and patient moves toes to stimuli. Results Laboratory Results: 10/03/16 05:47 10/03/16 05:47 10/02/16 10/02/16 10/02/16 22:00 23:18 23:18 WBC 11.6 H RBC 3.38 L Hgb 10.0 L Hct 30.4 L MCV 90 MCH 29.5 MCHC 32.8 RDW 15.5 H Plt Count 292 Seg Neutrophils % Not Reportable Lymphocytes % Not Reportable Monocytes % Not Reportable Eosinophils % Not Reportable Basophils % Not Reportable Absolute Neutrophils Not Reportable Absolute Lymphocytes Not Reportable Absolute Monocytes Not Reportable Absolute Eosinophils Not Reportable Absolute Basophils Not Reportable Carbonic Acid 1.04 L HCO3/H2CO3 Ratio 19:1 ABG pH 7.38 ABG pCO2 34.7 L ABG pO2 75.7 L ABG HCO3 19.8 L ABG O2 Saturation 95.0 ABG Base Excess -4.7 FiO2 100% Sodium 139.5 Potassium 4.1 Chloride 108 H Carbon Dioxide 21 L Anion Gap 11 BUN 31 H Creatinine 1.20 Est GFR ( Amer) > 60 Est GFR (Non-Af Amer) 59 L Glucose 88 Calcium 8.9 Magnesium 1.7 TSH 10/02/16 10/03/16 10/03/16 23:18 05:47 05:47 WBC 13.3 H RBC 3.17 L Hgb 9.5 L Hct 28.4 L MCV 90 MCH 30.1 MCHC 33.6 RDW 15.6 H Plt Count 297 Seg Neutrophils % Lymphocytes % Monocytes % Eosinophils % Basophils % Absolute Neutrophils Absolute Lymphocytes Absolute Monocytes Absolute Eosinophils Absolute Basophils Carbonic Acid HCO3/H2CO3 Ratio ABG pH ABG pCO2 ABG pO2 ABG HCO3 ABG O2 Saturation ABG Base Excess FiO2 Sodium 140.6 Potassium 4.2 Chloride 108 H Carbon Dioxide 22 Anion Gap 11 BUN 30 H Creatinine 1.25 Est GFR ( Amer) > 60 Est GFR (Non-Af Amer) 56 L Glucose 92 Calcium 9.0 Magnesium TSH 12.40 H 10/02/16 10/03/16 10/03/16 23:18 05:47 12:29 Troponin I 0.063 0.066 0.046 Impressions: Cervical Spine CT 10/01/16 14:42 IMPRESSION: No acute fracture or malalignment. Central canal stenosis at C3-4 , bilateral foraminal narrowing at C3-4, C4-5, and C5-6. Head CT 10/01/16 14:42 IMPRESSION: CHRONIC CHANGES OF ATROPHY AND MICROVASCULAR ISCHEMIA. NO ACUTE PROCESS. Chest X-Ray 10/02/16 00:00 IMPRESSION: COPD. No acute findings Lung Scan-VQ NM 10/03/16 00:41 IMPRESSION: No evidence of pulmonary embolus (very low probability). Hip/Pelvis X-Ray 10/03/16 08:00 IMPRESSION: Post right hip replacement in good alignment. Assessment & Plan - Diagnosis (1) Fracture of femoral neck Qualifiers: Encounter type: initial encounter Fracture type: closed Laterality : right Qualified Code(s): S72.001A - Fracture of unspecified part of neck of right femur, initial encounter for closed fracture Is this a current diagnosis for this admission?: Yes - Plan Summary Plan Summary: Patient is a 76-year-old Alzheimer dementia patient POD #1 from right hip hemiarthroplasty. Continue physical therapy Continue pain control Continue DVT prophylaxis Awaiting intermediate facility placement
--- NOTE | 2016-10-04 16:24 | PDOC PROGRESS REPORT ---
Subjective Progress Note for:: 10/04/16 Subjective:: Patient resting in bed. Daughter bedside stating patient will be going back to [facility] tomorrow. Physical Exam Vital Signs: Temp Pulse Resp BP Pulse Ox 36.9 C 64 16 118/79 100 10/04/16 11:00 10/04/16 11:00 10/04/16 11:00 10/04/16 11:00 10/04/16 13:05 Pulse Oximeter Continuous Start: 10/02/16 23: 22 Freq: Status: Complete Document 10/02/16 22:00 [facility] (Rec: 10/02/16 23:24 [facility] [email or web address]) Pulse Oximetry Assessment Oxygen Saturation (92-100) 98 Oxygen Delivery Method Non-Rebreather Fraction of Inspired Oxygen (FIO2) 100 Equipment Usage Initial Set Up Continuous Pulse Oximeter 24 Hour Charge Charge Now Continuous SpO2 Machine # N-6 Pulse Oximeter Continuous Start: 10/03/16 00: 03 Freq: RTQ4 Status: Active Document 10/04/16 13:05 [facility] (Rec: 10/04/16 13:27 [facility] [id number]) Pulse Oximetry Assessment Oxygen Saturation (92-100) 100 Oxygen Flow Rate (L/min) 1 Oxygen Delivery Method Nasal Cannula Fraction of Inspired Oxygen (FIO2) 24 Equipment Usage Equipment in Use Continuous SpO2 Machine # N 6 Intake & Output 10/03/16 10/04/16 10/05/16 06:59 06:59 06:59 Intake Total 7623 2858 240 Output Total 1930 700 200 Balance 5693 2158 40 Weight 54.4 kg 54.3 kg Adult Front & Back Image: 1 - Incision covered by Acticoat and dressing with no significant drainage. Ecchymosis around the incision. Limb lengths are grossly equal and patient has good capillary refill. Patient responds to stimuli and is able to flex and extend the ankle and toes. Results Laboratory Results: 10/04/16 05:17 10/04/16 05:17 10/04/16 10/04/16 05:17 05:17 WBC 13.1 H RBC 2.69 L Hgb 8.1 L Hct 23.8 L MCV 88 MCH 30.3 MCHC 34.3 RDW 15.4 H Plt Count 249 Sodium 137.2 Potassium 4.2 Chloride 107 Carbon Dioxide 22 Anion Gap 8 BUN 32 H Creatinine 1.10 Est GFR ( Amer) > 60 Est GFR (Non-Af Amer) > 60 Glucose 112 H Calcium 8.7 10/02/16 10/03/16 10/03/16 23:18 05:47 12:29 Troponin I 0.063 0.066 0.046 Impressions: Cervical Spine CT 10/01/16 14:42 IMPRESSION: No acute fracture or malalignment. Central canal stenosis at C3-4 , bilateral foraminal narrowing at C3-4, C4-5, and C5-6. Head CT 10/01/16 14:42 IMPRESSION: CHRONIC CHANGES OF ATROPHY AND MICROVASCULAR ISCHEMIA. NO ACUTE PROCESS. Chest X-Ray 10/02/16 00:00 IMPRESSION: COPD. No acute findings Lung Scan-VQ NM 10/03/16 00:41 IMPRESSION: No evidence of pulmonary embolus (very low probability). Hip/Pelvis X-Ray 10/03/16 08:00 IMPRESSION: Post right hip replacement in good alignment. Assessment & Plan - Diagnosis (1) Fracture of femoral neck Qualifiers: Encounter type: initial encounter Fracture type: closed Laterality : right Qualified Code(s): S72.001A - Fracture of unspecified part of neck of right femur, initial encounter for closed fracture Is this a current diagnosis for this admission?: Yes - Plan Summary Plan Summary: Patient is 76-year-old Alzheimer demented patient POD #2 right hip hemiarthroplasty Continue physical therapy Continue pain control Continue DVT prophylaxis Plan to transfer back to [facility] tomorrow.
[2016-10-04] MEDS: QUETIAPINE FUMARATE 25 MG TABLET PO SCH (22:25)
[2016-10-04] MEDS: FINASTERIDE 5 MG TABLET PO SCH (22:25)
[2016-10-04] MEDS: DONEPEZIL HCL 5 MG TABLET PO SCH (22:25)
[2016-10-05] MEDS: RINGERS SOLUTION,LACTATED 1,000 ML IV PRN (02:45)
[2016-10-05 05:23] LABS: HEMATOCRIT 22.7 % (37.9-51.0); HGB HCT DIFFERENCE -0.5; MEAN CORPUSCULAR HEMOGLOBIN 29.5 pg (27.0-33.4); MEAN CORPUSCULAR HGB CONC 32.8 g/dL (32.0-36.0); MEAN CORPUSCULAR VOLUME 90 fl (80-97); RED BLOOD COUNT 2.52 10^6/uL (4.35-5.55); RED CELL DISTRIBUTION WIDTH 15.5 % (11.5-14.0); WHITE BLOOD COUNT 11.9 10^3/uL (4.0-10.5)
[2016-10-05 05:26] LABS: HEMOGLOBIN 7.4 g/dL (13.5-17.0)
[2016-10-05 05:38] LABS: ANION GAP 6 (5-19); BLOOD UREA NITROGEN 25 mg/dL (7-20); CALCIUM 8.6 mg/dL (8.4-10.2); CARBON DIOXIDE 27 mmol/L (22-30); CHLORIDE 104 mmol/L (98-107); CREATININE RESULT 0.96 mg/dL (0.52-1.25); GLUCOSE 97 mg/dL (75-110); POTASSIUM 4.1 mmol/L (3.6-5.0); SODIUM 137.2 mmol/L (137-145)
[2016-10-05] MEDS ORDERED: NORMAL SALINE 250 ML IV PRN ×2 (06:05)
--- NOTE | 2016-10-05 06:08 | Progress Note ---
Provider Note Provider Note: October 05, 2016, 6:05 AM: Contacted by patient's floor nurse short time ago with patient's morning labs revealing hemoglobin 7.4, reflecting a downward trend. Feel patient would benefit from transfusion of at least 1 unit of packed cells. Patient has underlying severe dementia and cannot provide permission for transfusion. Just now, I spoke by phone with patient's , his healthcare decision maker. She understands the risks associated with blood product transfusion to include, but not be limited to, transfusion reaction, which can be fatal, along with hepatitis and/or HIV viruses. Discussed in lay person's terms. She agrees that patient should undergo transfusion of blood products if felt necessary.
[2016-10-05] MEDS ORDERED: RINGERS SOLUTION,LACTATED 1,000 ML IV PRN (08:26)
--- NOTE | 2016-10-05 08:29 | PDOC PROGRESS REPORT ---
Subjective Progress Note for:: 10/05/16 Subjective:: reason for visit: f/u hip fracture, dementia, HTN hospital course: JOSH AMES is a 76 year old male presents from [place] where he resides due to advanced Alzheimer's Dementia after found down on floor and in pain; xray reveals Rt hip fracture and we were asked to admit for further eval and management including ortho consult. He is normally nonverbal, only occasional bursts of curse words is his baseline, though his indicates he is able to feed himself a regular consistency meal and liquids and ambulates without assistance in a slow shuffling gait. He is unable to provide ROS or medical history or even participate in his exam, he will not follow any commands. reports pacemaker placed for symptomatic bradycardia but he has no known ASCVD/CAD, smoked but quit decades ago and no history of COPD or chronic bronchitis/asthma. he broke his left hip requiring total replacement in the last year and she notes he was slow to wake up from anesthesia but seemed to tolerate the procedure okay but his mental state declined and never recovered. He used to hallucinate when given morphine but that was before the dementia set in. she isn't sure what pain meds he was given post op last time. he underwent surgical repair without complication during the procedure but post op course complicated by hypoxia for unclear reasons beyond somnolence in the setting of advanced dementia. He initially required BiPAP after return from the PACU for persistent hypoxia, CXR was clear, ABG shows hypoxia with A-a gradient but VQ scan was low probability for PE, ecg shows no acute changes and his cardiac enzymes are equivocal and trended down. He was weaned off the BiPAP to NC with minimal O2 requirements by the next morning. His sparks started to show hematuria which his family indicates is a common problem and "a special catheter" is often required so he was changed to but his urine hasn't cleared. He continues to pull at the sparks, often in spite of soft wrist restraints, compounding the problem. Schedule flushes yield only blood tinged urine but no clots. catheter bag has ross blood and sediment but no clots in the tubing and is free flowing of urine. He remains unable to provide ROS to help sort this out. ROS: unable to obtain due to mental state Physical Exam Vital Signs: Temp Pulse Resp BP Pulse Ox 98.2 F 91 19 140/82 H 100 10/05/16 04:00 10/05/16 04:00 10/05/16 04:00 10/05/16 04:00 10/05/16 05:50 Intake & Output 10/04/16 10/05/16 10/06/16 06:59 06:59 06:59 Intake Total 2858 2624 Output Total 700 1000 Balance 2158 1624 Weight 54.3 kg 67.5 kg General appearance: PRESENT: no acute distress, thin, well-developed, much more animated this morning, mumbling with his hands in diaper fiddling with his penis and sparks in spite of multiple attempts at redirection Head exam: PRESENT: atraumatic, normocephalic Eye exam: ABSENT: conjunctival injection, scleral icterus Mouth exam: PRESENT: moist. ABSENT: neck supple Neck exam: ABSENT: carotid bruit, lymphadenopathy Respiratory exam: PRESENT: clear to auscultation amari. ABSENT: accessory muscle use, no resp distress Cardiovascular exam: PRESENT: RRR ABSENT: systolic murmur, JVD Pulses: PRESENT: normal radial pulses, normal dorsalis pedis pul Vascular exam: PRESENT: normal capillary refill GI/Abdominal exam: PRESENT: normal bowel sounds, soft. ABSENT: tenderness - no grimace to palpation : Kuday in place with ross red blood , sediment and clear yellow urine mixed in; seems to be free flowing Extremities exam: ABSENT: pedal edema Musculoskeletal exam: ABSENT: full ROM - Rt hip with pain on palpation, wound is c/d/i Neurological exam: PRESENT: altered, awake Skin exam: PRESENT: dry, warm Results Laboratory Results: 10/05/16 04:57 10/05/16 04:57 10/05/16 10/05/16 10/05/16 04:57 04:57 06:12 WBC 11.9 H RBC 2.52 L Hgb 7.4 L Hct 22.7 L MCV 90 MCH 29.5 MCHC 32.8 RDW 15.5 H Plt Count 259 Sodium 137.2 Potassium 4.1 Chloride 104 Carbon Dioxide 27 Anion Gap 6 BUN 25 H Creatinine 0.96 Est GFR ( Amer) > 60 Est GFR (Non-Af Amer) > 60 Glucose 97 Calcium 8.6 Blood Type O NEGATIVE Antibody Screen NEGATIVE 10/02/16 10/03/16 10/03/16 23:18 05:47 12:29 Troponin I 0.063 0.066 0.046 Assessment & Plan - Diagnosis (1) Fracture of femoral neck Qualifiers: Encounter type: initial encounter Fracture type: closed Laterality : right Qualified Code(s): S72.001A - Fracture of unspecified part of neck of right femur, initial encounter for closed fracture Is this a current diagnosis for this admission?: YesPlan: stable, s/p surgical repair; wound care and rehab per ortho (2) Alzheimer's dementia Qualifiers: Alzheimer's disease onset: other onset Dementia behavioral disturbance : without behavioral disturbance Qualified Code(s): G30.8 - Other Alzheimer' s disease; F02.81 - Dementia in other diseases classified elsewhere with behavioral disturbance Is this a current diagnosis for this admission?: Yes (3) Do not resuscitate Is this a current diagnosis for this admission?: Yes (4) Hypertension Qualifiers: Hypertension type: essential hypertension Qualified Code(s): I10 - Essential (primary) hypertension Is this a current diagnosis for this admission?: YesPlan: fluctuating, overall trend is reassuring and stable; continue holding parameters on beta josé luis and d/c'd the CCB, continue IVFs due to poor oral intake and monitor for response (5) Hematuria Qualifiers: Hematuria type: unspecified type Qualified Code(s): R31.9 - Hematuria, unspecified Is this a current diagnosis for this admission?: YesPlan: worse; likely related to BPH and trauma from the sparks either with insertion or him pulling at it; continue Kuday for now and monitor for clearing, hesitant to remove given risk for clot occlusion of the urethra. continue scheduled free sterile saline flushes. we do not have urology available for consult (6) Acute blood loss anemia Is this a current diagnosis for this admission?: YesPlan: likely related to the above complicated by poor oral intake. agree with transfusion of blood. hesitant to hold lovenox DVT prophy given his grave risk of DVT/PE due to immobility but may have to if his H/H will not hold. (7) Hypothyroid Qualifiers: Hypothyroidism type: acquired Qualified Code(s): E03.9 - Hypothyroidism, unspecified Is this a current diagnosis for this admission?: Yes (8) Pacemaker Is this a current diagnosis for this admission?: Yes (9) Vitamin B 12 deficiency Is this a current diagnosis for this admission?: Yes (10) Acute respiratory failure with hypoxia Is this a current diagnosis for this admission?: YesPlan: resolved, I suspect related to prolonged effect of anesthesia and will hopefully wear off with time - Time Time Spent with patient: 35 or more minutes
[2016-10-05] MEDS: DOCUSATE SODIUM 100 MG CAPSULE PO SCH (11:46)
[2016-10-05] MEDS: LEVOTHYROXINE SODIUM 0.05 MG TABLET PO SCH (11:46)
[2016-10-05] MEDS: LEVETIRACETAM 500 MG TABLET PO SCH ×2 (11:46→17:24)
[2016-10-05] MEDS: TAMSULOSIN HCL 0.4 MG CAP.SR.24H PO SCH (11:46)
[2016-10-05] MEDS: ATENOLOL 50 MG TABLET PO SCH (11:47)
[2016-10-05] MEDS: ENOXAPARIN SODIUM INJ 40 MG/0.4 ML DISP.SYRIN SUBCUT SCH (11:47)
--- NOTE | 2016-10-05 13:10 | PDOC PROGRESS REPORT ---
Subjective Progress Note for:: 10/05/16 Subjective:: Lying in bed comfortably. According to the no new issues currently. H&H has decreased and will receive PRBCs. Physical Exam Vital Signs: Temp Pulse Resp BP Pulse Ox 98.1 F 55 L 16 134/66 H 100 10/05/16 11:52 10/05/16 11:52 10/05/16 11:52 10/05/16 11:52 10/05/16 11:29 Pulse Oximeter Continuous Start: 10/02/16 23: 22 Freq: Status: Complete Document 10/02/16 22:00 [facility] (Rec: 10/02/16 23:24 [facility] [email or web address]) Pulse Oximetry Assessment Oxygen Saturation (92-100) 98 Oxygen Delivery Method Non-Rebreather Fraction of Inspired Oxygen (FIO2) 100 Equipment Usage Initial Set Up Continuous Pulse Oximeter 24 Hour Charge Charge Now Continuous SpO2 Machine # N-6 Pulse Oximeter Continuous Start: 10/03/16 00: 03 Freq: RTQ4 Status: Active Document 10/05/16 11:29 [facility] (Rec: 10/05/16 11:29 [facility] [email or web address]) Pulse Oximetry Assessment Oxygen Saturation (92-100) 100 Oxygen Flow Rate (L/min) 1 Oxygen Delivery Method Nasal Cannula Equipment Usage Equipment in Use Continuous SpO2 Machine # 6 Intake & Output 10/04/16 10/05/16 10/06/16 06:59 06:59 06:59 Intake Total 2858 2624 Output Total 700 1000 Balance 2158 1624 Weight 54.3 kg 67.5 kg Musculoskeletal exam: PRESENT: other - Right lower extremity: Dressing clean/dry /intact no erythema or drainage. No calf tenderness. Dorsalis pedis pulse 2+. Intact plantar flexion/dorsiflexion. Results Laboratory Results: 10/05/16 04:57 10/05/16 04:57 10/05/16 10/05/16 10/05/16 04:57 04:57 06:12 WBC 11.9 H RBC 2.52 L Hgb 7.4 L Hct 22.7 L MCV 90 MCH 29.5 MCHC 32.8 RDW 15.5 H Plt Count 259 Sodium 137.2 Potassium 4.1 Chloride 104 Carbon Dioxide 27 Anion Gap 6 BUN 25 H Creatinine 0.96 Est GFR ( Amer) > 60 Est GFR (Non-Af Amer) > 60 Glucose 97 Calcium 8.6 Blood Type O NEGATIVE Antibody Screen NEGATIVE 10/02/16 10/03/16 10/03/16 23:18 05:47 12:29 Troponin I 0.063 0.066 0.046 Impressions: Cervical Spine CT 10/01/16 14:42 IMPRESSION: No acute fracture or malalignment. Central canal stenosis at C3-4 , bilateral foraminal narrowing at C3-4, C4-5, and C5-6. Head CT 10/01/16 14:42 IMPRESSION: CHRONIC CHANGES OF ATROPHY AND MICROVASCULAR ISCHEMIA. NO ACUTE PROCESS. Chest X-Ray 10/02/16 00:00 IMPRESSION: COPD. No acute findings Lung Scan-VQ NM 10/03/16 00:41 IMPRESSION: No evidence of pulmonary embolus (very low probability). Hip/Pelvis X-Ray 10/03/16 08:00 IMPRESSION: Post right hip replacement in good alignment. Assessment & Plan - Diagnosis (1) Fracture of femoral neck Qualifiers: Encounter type: initial encounter Fracture type: closed Laterality : right Qualified Code(s): S72.001A - Fracture of unspecified part of neck of right femur, initial encounter for closed fracture Is this a current diagnosis for this admission?: YesPlan: Status post right hip hemiarthroplasty postop day #3 #1 physical therapy with hip precautions #2 acute blood loss anemia patient receiving PRBCs #3 Lovenox for DVT prophylaxis consideration for holding anticoagulation given patient's low H&H we will continue to monitor #4 discharge planning long-term facility.
[2016-10-05 22:21] LABS: ABSOLUTE BASOPHILS # (AUTO) 0.1 10^3/uL (0.0-0.2); ABSOLUTE LYMPHOCYTES (AUTO) 1.3 10^3/uL (0.5-4.7); ABSOLUTE MONOCYTES (AUTO) 0.6 10^3/uL (0.1-1.4); ABSOLUTE NEUT (AUTO) 9.2 10^3/uL (1.7-8.2); BASOPHILS % (AUTO) 0.6 % (0-2); EOSINOPHILS % (AUTO) 0.2 % (0-6); HEMATOCRIT 25.6 % (37.9-51.0); HEMOGLOBIN 8.7 g/dL (13.5-17.0); HGB HCT DIFFERENCE 0.5; LYMPHOCYTES % (AUTO) 11.9 % (13-45); MEAN CORPUSCULAR HEMOGLOBIN 30.4 pg (27.0-33.4); MEAN CORPUSCULAR VOLUME 89 fl (80-97); MONOCYTES % (AUTO) 5.6 % (3-13); RED BLOOD COUNT 2.86 10^6/uL (4.35-5.55); RED CELL DISTRIBUTION WIDTH 15.7 % (11.5-14.0); SEGMENTED NEUTROPHILS % (AUTO) 81.7 % (42-78); WHITE BLOOD COUNT 11.2 10^3/uL (4.0-10.5)
[2016-10-05] MEDS: FINASTERIDE 5 MG TABLET PO SCH (22:54)
[2016-10-05] MEDS: DONEPEZIL HCL 5 MG TABLET PO SCH (22:54)
[2016-10-05] MEDS: QUETIAPINE FUMARATE 25 MG TABLET PO SCH (22:55)
[2016-10-06 05:04] LABS: ABSOLUTE LYMPHOCYTES (AUTO) 1.2 10^3/uL (0.5-4.7); ABSOLUTE MONOCYTES (AUTO) 0.6 10^3/uL (0.1-1.4); ABSOLUTE NEUT (AUTO) 8.4 10^3/uL (1.7-8.2); BASOPHILS % (AUTO) 0.4 % (0-2); EOSINOPHILS % (AUTO) 0.2 % (0-6); HEMATOCRIT 22.6 % (37.9-51.0); HGB HCT DIFFERENCE 1.1; LYMPHOCYTES % (AUTO) 11.7 % (13-45); MEAN CORPUSCULAR HEMOGLOBIN 30.9 pg (27.0-33.4); MEAN CORPUSCULAR VOLUME 88 fl (80-97); RED BLOOD COUNT 2.56 10^6/uL (4.35-5.55); RED CELL DISTRIBUTION WIDTH 15.5 % (11.5-14.0); SEGMENTED NEUTROPHILS % (AUTO) 81.7 % (42-78); WHITE BLOOD COUNT 10.3 10^3/uL (4.0-10.5)
[2016-10-06 05:05] LABS: HEMOGLOBIN 7.9 g/dL (13.5-17.0)
[2016-10-06 05:06] LABS: ANION GAP 7 (5-19); BLOOD UREA NITROGEN 23 mg/dL (7-20); CALCIUM 8.4 mg/dL (8.4-10.2); CARBON DIOXIDE 26 mmol/L (22-30); CHLORIDE 104 mmol/L (98-107); CREATININE RESULT 0.81 mg/dL (0.52-1.25); GLUCOSE 105 mg/dL (75-110); POTASSIUM 3.7 mmol/L (3.6-5.0); SODIUM 136.5 mmol/L (137-145)
[2016-10-06 09:15] LABS: HEMATOCRIT 25.8 % (37.9-51.0); HEMOGLOBIN 8.8 g/dL (13.5-17.0); HGB HCT DIFFERENCE 0.6; MEAN CORPUSCULAR HEMOGLOBIN 30.4 pg (27.0-33.4); MEAN CORPUSCULAR HGB CONC 34.1 g/dL (32.0-36.0); MEAN CORPUSCULAR VOLUME 89 fl (80-97); RED BLOOD COUNT 2.89 10^6/uL (4.35-5.55); RED CELL DISTRIBUTION WIDTH 15.4 % (11.5-14.0); WHITE BLOOD COUNT 9.3 10^3/uL (4.0-10.5)
[2016-10-06] MEDS: LEVETIRACETAM 500 MG TABLET PO SCH ×2 (10:07→17:18)
[2016-10-06] MEDS: ATENOLOL 50 MG TABLET PO SCH (10:07)
[2016-10-06] MEDS: LEVOTHYROXINE SODIUM 0.05 MG TABLET PO SCH (10:08)
[2016-10-06] MEDS: TAMSULOSIN HCL 0.4 MG CAP.SR.24H PO SCH (10:08)
[2016-10-06] MEDS: DOCUSATE SODIUM 100 MG CAPSULE PO SCH (10:08)
--- NOTE | 2016-10-06 11:37 | PDOC PROGRESS REPORT ---
Subjective Progress Note for:: 10/06/16 Subjective:: reason for visit: f/u hip fracture, dementia, HTN hospital course: JOSH AMES is a 76 year old male presents from [place] where he resides due to advanced Alzheimer's Dementia after found down on floor and in pain; xray reveals Rt hip fracture and we were asked to admit for further eval and management including ortho consult. He is normally nonverbal, only occasional bursts of curse words is his baseline, though his indicates he is able to feed himself a regular consistency meal and liquids and ambulates without assistance in a slow shuffling gait. He is unable to provide ROS or medical history or even participate in his exam, he will not follow any commands. reports pacemaker placed for symptomatic bradycardia but he has no known ASCVD/CAD, smoked but quit decades ago and no history of COPD or chronic bronchitis/asthma. he broke his left hip requiring total replacement in the last year and she notes he was slow to wake up from anesthesia but seemed to tolerate the procedure okay but his mental state declined and never recovered. He used to hallucinate when given morphine but that was before the dementia set in. she isn't sure what pain meds he was given post op last time. he underwent surgical repair without complication during the procedure but post op course complicated by hypoxia for unclear reasons beyond somnolence in the setting of advanced dementia. He initially required BiPAP after return from the PACU for persistent hypoxia, CXR was clear, ABG shows hypoxia with A-a gradient but VQ scan was low probability for PE, ecg shows no acute changes and his cardiac enzymes are equivocal and trended down. He was weaned off the BiPAP to NC with minimal O2 requirements by the next morning. His sparks started to show hematuria which his family indicates is a common problem and "a special catheter" is often required so he was changed to but his urine hasn't cleared. He continues to pull at the sparks, often in spite of soft wrist restraints, compounding the problem. Schedule flushes yield only blood tinged urine but no clots. catheter bag has ross blood and sediment but no clots in the tubing and is free flowing of urine. he is followed by urology at [facility] who seen him there as inpatient in the past as well. He remains unable to provide ROS to help sort this out. ROS: unable to obtain due to mental state; blood in urine is worse this morning Physical Exam Vital Signs: Temp Pulse Resp BP Pulse Ox 97.9 F 49 L 16 149/68 H 99 10/06/16 08:05 10/06/16 08:05 10/06/16 08:05 10/06/16 08:05 10/06/16 08:25 Intake & Output 10/05/16 10/06/16 10/07/16 06:59 06:59 06:59 Intake Total 2624 2030 Output Total 1000 1200 Balance 1624 830 Weight 67.5 kg 68.1 kg General appearance: PRESENT: no acute distress, thin, well-developed Head exam: PRESENT: atraumatic, normocephalic Eye exam: ABSENT: conjunctival injection, scleral icterus Mouth exam: PRESENT: moist. ABSENT: neck supple Neck exam: ABSENT: carotid bruit, lymphadenopathy Respiratory exam: PRESENT: clear to auscultation amari. ABSENT: accessory muscle use, no resp distress Cardiovascular exam: PRESENT: RRR ABSENT: systolic murmur, JVD Pulses: PRESENT: normal radial pulses, normal dorsalis pedis pul Vascular exam: PRESENT: normal capillary refill GI/Abdominal exam: PRESENT: normal bowel sounds, soft. ABSENT: tenderness - no grimace to palpation : Kuday in place with ross red blood , sediment, seems to be thin fluid and free flowing but worse this morning Extremities exam: ABSENT: pedal edema Musculoskeletal exam: ABSENT: full ROM - Rt hip with pain on palpation, wound is c/d/i though there is an ecchymotic area developing Neurological exam: PRESENT: altered, awake Skin exam: PRESENT: dry, warm Results Laboratory Results: 10/06/16 09:09 10/06/16 04:22 10/05/16 10/05/16 10/06/16 06:12 22:13 04:22 WBC 11.2 H 10.3 RBC 2.86 L 2.56 L Hgb 8.7 L 7.9 L Hct 25.6 L 22.6 L MCV 89 88 MCH 30.4 30.9 MCHC 34.0 35.0 RDW 15.7 H 15.5 H Plt Count 264 269 Seg Neutrophils % 81.7 H 81.7 H Lymphocytes % 11.9 L 11.7 L Monocytes % 5.6 6.0 Eosinophils % 0.2 0.2 Basophils % 0.6 0.4 Absolute Neutrophils 9.2 H 8.4 H Absolute Lymphocytes 1.3 1.2 Absolute Monocytes 0.6 0.6 Absolute Eosinophils 0.0 0.0 Absolute Basophils 0.1 0.0 Sodium Potassium Chloride Carbon Dioxide Anion Gap BUN Creatinine Est GFR ( Amer) Est GFR (Non-Af Amer) Glucose Calcium Blood Type O NEGATIVE Antibody Screen NEGATIVE 10/06/16 10/06/16 04:22 09:09 WBC 9.3 RBC 2.89 L Hgb 8.8 L Hct 25.8 L MCV 89 MCH 30.4 MCHC 34.1 RDW 15.4 H Plt Count 290 Seg Neutrophils % Lymphocytes % Monocytes % Eosinophils % Basophils % Absolute Neutrophils Absolute Lymphocytes Absolute Monocytes Absolute Eosinophils Absolute Basophils Sodium 136.5 L Potassium 3.7 Chloride 104 Carbon Dioxide 26 Anion Gap 7 BUN 23 H Creatinine 0.81 Est GFR ( Amer) > 60 Est GFR (Non-Af Amer) > 60 Glucose 105 Calcium 8.4 Blood Type Antibody Screen 10/02/16 10/03/16 10/03/16 23:18 05:47 12:29 Troponin I 0.063 0.066 0.046 Assessment & Plan - Diagnosis (1) Hematuria Qualifiers: Hematuria type: unspecified type Qualified Code(s): R31.9 - Hematuria, unspecified Is this a current diagnosis for this admission?: YesPlan: worse; likely related to BPH and trauma from the sparks either with insertion or him pulling at it or both. continue Kuday for now and monitor for clearing, hesitant to remove given risk for clot occlusion of the urethra. increase scheduled free sterile saline flushes. we do not have urology available for consult and I doubt we'd be able to pass large bore catheter for more formal bladder irrigation. have to stop lovenox DVT prophylaxis. If he doesn't stabilize then will need transfer to [facility] where his urologist can assist. (2) Acute blood loss anemia Is this a current diagnosis for this admission?: YesPlan: likely related to the above complicated by poor oral intake. s/p transfusion of iU of blood. H/H fluctuating, will repeat again in the morning and transfuse to keep his Hg >8 (3) Fracture of femoral neck Qualifiers: Encounter type: initial encounter Fracture type: closed Laterality : right Qualified Code(s): S72.001A - Fracture of unspecified part of neck of right femur, initial encounter for closed fracture Is this a current diagnosis for this admission?: YesPlan: stable, s/p surgical repair; wound care and rehab per ortho (4) Alzheimer's dementia Qualifiers: Alzheimer's disease onset: other onset Dementia behavioral disturbance : without behavioral disturbance Qualified Code(s): G30.8 - Other Alzheimer' s disease; F02.81 - Dementia in other diseases classified elsewhere with behavioral disturbance Is this a current diagnosis for this admission?: YesPlan: stable; severe and likely affecting his recovery and response to meds including anesthesia. continue restraints as needed to protect lifelines/interventions (5) Do not resuscitate Is this a current diagnosis for this admission?: Yes (6) Hypertension Qualifiers: Hypertension type: essential hypertension Qualified Code(s): I10 - Essential (primary) hypertension Is this a current diagnosis for this admission?: Yes (7) Hypothyroid Qualifiers: Hypothyroidism type: acquired Qualified Code(s): E03.9 - Hypothyroidism, unspecified Is this a current diagnosis for this admission?: Yes (8) Pacemaker Is this a current diagnosis for this admission?: Yes (9) Vitamin B 12 deficiency Is this a current diagnosis for this admission?: Yes (10) Acute respiratory failure with hypoxia Is this a current diagnosis for this admission?: YesPlan: resolved, I suspect related to prolonged effect of anesthesia and will hopefully wear off with time
[2016-10-06] MEDS: DONEPEZIL HCL 5 MG TABLET PO SCH (22:23)
[2016-10-06] MEDS: QUETIAPINE FUMARATE 25 MG TABLET PO SCH (22:23)
[2016-10-06] MEDS: FINASTERIDE 5 MG TABLET PO SCH (22:23)
[2016-10-07 04:53] LABS: ABSOLUTE BASOPHILS # (AUTO) 0.1 10^3/uL (0.0-0.2); ABSOLUTE EOSINOPHILS # (AUTO) 0.1 10^3/uL (0.0-0.6); ABSOLUTE LYMPHOCYTES (AUTO) 1.3 10^3/uL (0.5-4.7); ABSOLUTE MONOCYTES (AUTO) 0.7 10^3/uL (0.1-1.4); ABSOLUTE NEUT (AUTO) 7.9 10^3/uL (1.7-8.2); BASOPHILS % (AUTO) 0.5 % (0-2); EOSINOPHILS % (AUTO) 0.8 % (0-6); HEMOGLOBIN 8.1 g/dL (13.5-17.0); HGB HCT DIFFERENCE 0.3; LYMPHOCYTES % (AUTO) 13.3 % (13-45); MEAN CORPUSCULAR HEMOGLOBIN 30.1 pg (27.0-33.4); MEAN CORPUSCULAR HGB CONC 33.6 g/dL (32.0-36.0); MEAN CORPUSCULAR VOLUME 90 fl (80-97); MONOCYTES % (AUTO) 6.6 % (3-13); RED BLOOD COUNT 2.68 10^6/uL (4.35-5.55); RED CELL DISTRIBUTION WIDTH 15.6 % (11.5-14.0); SEGMENTED NEUTROPHILS % (AUTO) 78.8 % (42-78)
[2016-10-07 05:06] LABS: ANION GAP 7 (5-19); BLOOD UREA NITROGEN 21 mg/dL (7-20); CALCIUM 8.5 mg/dL (8.4-10.2); CARBON DIOXIDE 27 mmol/L (22-30); CHLORIDE 102 mmol/L (98-107); CREATININE RESULT 0.83 mg/dL (0.52-1.25); GLUCOSE 107 mg/dL (75-110); SODIUM 135.6 mmol/L (137-145)
[2016-10-07] MEDS ORDERED: HALOPERIDOL 5 MG TABLET PO PRN (10:12)
[2016-10-07] MEDS: TAMSULOSIN HCL 0.4 MG CAP.SR.24H PO SCH (10:33)
[2016-10-07] MEDS: LEVOTHYROXINE SODIUM 0.05 MG TABLET PO SCH (10:34)
[2016-10-07] MEDS: DOCUSATE SODIUM 100 MG CAPSULE PO SCH (10:34)
[2016-10-07] MEDS: LEVETIRACETAM 500 MG TABLET PO SCH ×2 (10:34→17:23)
[2016-10-07] MEDS: ATENOLOL 50 MG TABLET PO SCH (10:34)
--- NOTE | 2016-10-07 13:43 | PDOC PROGRESS REPORT ---
Subjective Progress Note for:: 10/07/16 Subjective:: Patient at bedside and review is obtained from her. Patient is unable to provide ROS secondary to dementia. No acute events overnight. Physical Exam Vital Signs: Temp Pulse Resp BP Pulse Ox 98.3 F 50 L 16 122/62 97 10/06/16 23:26 10/06/16 23:26 10/06/16 23:26 10/06/16 23:26 10/07/16 04:00 Pulse Oximeter Continuous Start: 10/02/16 23: 22 Freq: Status: Complete Document 10/02/16 22:00 [facility] (Rec: 10/02/16 23:24 [facility] [email or web address]) Pulse Oximetry Assessment Oxygen Saturation (92-100) 98 Oxygen Delivery Method Non-Rebreather Fraction of Inspired Oxygen (FIO2) 100 Equipment Usage Initial Set Up Continuous Pulse Oximeter 24 Hour Charge Charge Now Continuous SpO2 Machine # N-[id number] Pulse Oximeter Continuous Start: 10/03/16 00: 03 Freq: RTQ4 Status: Active Document 10/07/16 04:00 [facility] (Rec: 10/07/16 04:47 [facility] [email or web address]) Pulse Oximetry Assessment Oxygen Saturation (92-100) 97 Oxygen Delivery Method Room Air Equipment Usage Equipment in Use Continuous SpO2 Machine # 6 Intake & Output 10/06/16 10/07/16 10/08/16 06:59 06:59 06:59 Intake Total 2030 820 Output Total 1200 1820 Balance 830 -1000 Weight 68.1 kg 70.4 kg Exam: GENERAL: No acute distress, resting comfortably, and rouses to gentle stimuli HEENT: Conjunctiva clear, nonicteric, moist mucous membranes, no JVD, midline trachea RESPIRATORY: Clear to auscultation bilaterally CARDIAC: Regular rate and rhythm, no murmurs/gallops/rubs ABDOMEN: soft, NTTP, ND, active bowel sounds, no rebound, no rigidity, no guarding : draining grossly bloody urine EXTREMETIES: trace edema RLE, bandage in place c/d/i with ecchymosis, no cyanosis, no clubbing NEUROLOGIC: resting comfortably, CN's grossly intact, no focal deficits Results Laboratory Results: 10/07/16 04:17 10/07/16 04:17 10/06/16 10/07/16 10/07/16 09:09 04:17 04:17 WBC 9.3 10.0 RBC 2.89 L 2.68 L Hgb 8.8 L 8.1 L Hct 25.8 L 24.0 L MCV 89 90 MCH 30.4 30.1 MCHC 34.1 33.6 RDW 15.4 H 15.6 H Plt Count 290 302 Seg Neutrophils % 78.8 H Lymphocytes % 13.3 Monocytes % 6.6 Eosinophils % 0.8 Basophils % 0.5 Absolute Neutrophils 7.9 Absolute Lymphocytes 1.3 Absolute Monocytes 0.7 Absolute Eosinophils 0.1 Absolute Basophils 0.1 Sodium 135.6 L Potassium 4.0 Chloride 102 Carbon Dioxide 27 Anion Gap 7 BUN 21 H Creatinine 0.83 Est GFR ( Amer) > 60 Est GFR (Non-Af Amer) > 60 Glucose 107 Calcium 8.5 10/02/16 10/03/16 10/03/16 23:18 05:47 12:29 Troponin I 0.063 0.066 0.046 Impressions: Cervical Spine CT 10/01/16 14:42 IMPRESSION: No acute fracture or malalignment. Central canal stenosis at C3-4 , bilateral foraminal narrowing at C3-4, C4-5, and C5-6. Head CT 10/01/16 14:42 IMPRESSION: CHRONIC CHANGES OF ATROPHY AND MICROVASCULAR ISCHEMIA. NO ACUTE PROCESS. Chest X-Ray 10/02/16 00:00 IMPRESSION: COPD. No acute findings Lung Scan-VQ NM 10/03/16 00:41 IMPRESSION: No evidence of pulmonary embolus (very low probability). Hip/Pelvis X-Ray 10/03/16 08:00 IMPRESSION: Post right hip replacement in good alignment. Assessment & Plan - Diagnosis (1) Acute blood loss anemia Is this a current diagnosis for this admission?: YesPlan: Stable. Continue to monitor and transfuse if Hgb is below 8. Concern for blood loss through sparks. (2) Acute encephalopathy Is this a current diagnosis for this admission?: YesPlan: Decrease amount of available narcotics and monitor. Likely secondary to prolonged effect of anesthesia. (3) Alzheimer's dementia Qualifiers: Alzheimer's disease onset: other onset Dementia behavioral disturbance : without behavioral disturbance Qualified Code(s): G30.8 - Other Alzheimer' s disease; F02.81 - Dementia in other diseases classified elsewhere with behavioral disturbance Is this a current diagnosis for this admission?: YesPlan: At baseline, patient is unable to do much other than feed himself. He is not normally oriented in any capacity per family reports. Continue Aricept (4) Fracture of femoral neck Qualifiers: Encounter type: initial encounter Fracture type: closed Laterality : right Qualified Code(s): S72.001A - Fracture of unspecified part of neck of right femur, initial encounter for closed fracture Is this a current diagnosis for this admission?: YesPlan: Defer to orthopedics. Did discuss limited rehab potential with his . (5) Hematuria Qualifiers: Hematuria type: unspecified type Qualified Code(s): R31.9 - Hematuria, unspecified Is this a current diagnosis for this admission?: YesPlan: Have consulted urology. Concern about sending patient back to [place] with sparks in place. Continue finasteride and flomax. (6) BPH (benign prostatic hyperplasia) Qualifiers: Lower urinary tract symptom presence: unspecified whether lower urinary tract symptoms present Qualified Code(s): N40.0 - Benign prostatic hyperplasia without lower urinary tract symptoms Is this a current diagnosis for this admission?: YesPlan: Have consulted urology. Concern about sending patient back to [place] with sparks in place. Continue finasteride and flomax. (7) Hypertension Qualifiers: Hypertension type: essential hypertension Qualified Code(s): I10 - Essential (primary) hypertension Is this a current diagnosis for this admission?: Yes (8) Hypothyroid Qualifiers: Hypothyroidism type: acquired Qualified Code(s): E03.9 - Hypothyroidism, unspecified Is this a current diagnosis for this admission?: YesPlan: Continue synthroid (9) Pacemaker Is this a current diagnosis for this admission?: YesPlan: Was previously placed for persistant bradycardia (10) Vitamin B 12 deficiency Is this a current diagnosis for this admission?: Yes (11) Do not resuscitate Is this a current diagnosis for this admission?: Yes - Time Time Spent with patient: 25-34 minutes Medications reviewed and adjusted accordingly: Yes Anticipated discharge: Acute Rehab
--- NOTE | 2016-10-07 14:12 | CONSULTATION REPORT E ---
Consultation Report NAME: JOSH AMES : 1940 AGE: 76Y DATE: 10/07/2016 ROOM: 408 A TO: JOHNNA HALL M.D., Ph.D. FROM: MARGARITA HOBBS Requesting Physician IMPRESSION: 1. Gross hematuria secondary to catheter trauma. 2. Status post TURP 2 years ago. 3. Right hip fracture. 4. Dementia. RECOMMENDATIONS: I spoke with the patient's who indicates that gross hematuria has been an issue since he had a TURP 2 years ago. She says that the hematuria usually resolves when the catheter is removed. I irrigated the catheter with sterile saline and did not obtain any clots. The urine cleared easily and was just a faint pink. Accordingly, I removed his catheter. He can be discharged to the rehab center and can follow back with [facility] p.r.n. after discharge. If there is any further problem during this hospitalization please feel free to reconsult. CONSULTATION: The patient is a 76-year-old gentleman who has had progressive memory challenges over a number of years. Several years ago he was diagnosed with Alzheimer disease with dementia. He was admitted on the 01 of October for treatment of a right hip fracture. He had a Diaz catheter placed postoperatively and developed gross hematuria. This has continued despite stopping his anticoagulation medication 24 hours ago. There are no clots though. He has been evaluated by the urologist at [facility] for a similar situation. His states that once the catheter is removed that his bleeding ultimately resolves. He has been placed on finasteride for post-TURP bleeding. He also pulls on the catheter, which compounds the problem. His social history, family history, review of systems and past medical history is outlined in the H and P by Dr. Ortega Dela Cruz, which I reviewed and will not recount in this dictation. PHYSICAL EXAMINATION: GENERAL: The patient is a 76-year-old gentleman who is confused and agitated. He does not appear to be in any acute distress. VITAL SIGNS: As listed in the nurse's notes. HEENT/NECK: He does not have any obvious facial lesions. His oral mucosa appears to be normal. There is no scleral icterus. Extraocular movements appear to be intact. Trachea is midline. LUNGS: No evidence of labored breathing. ABDOMEN: Soft. GENITOURINARY: His penis appears normal. His testicles are normal to palpation. EXTREMITIES: He has had a recent surgery for his right hip fracture. NEUROLOGIC: He has Alzheimer dementia. PROCEDURE NOTE: A total of 150 mL of sterile saline was used to irrigate the bladder. No clots were obtained. The Diaz catheter was removed after irrigating the bladder. DICTATING PHYSICIAN: JOHNNA HALL M.D., Ph.D [id number] PHY#: [id number] ID: [id number] JOB#: [id number] ACCT: [id number] cc:HOLLEY STRAUSS M.D. JOHNNA HALL M.D., Ph.D. >
[2016-10-07] MEDS: DONEPEZIL HCL 5 MG TABLET PO SCH (22:25)
[2016-10-07] MEDS: FINASTERIDE 5 MG TABLET PO SCH (22:25)
[2016-10-07] MEDS: QUETIAPINE FUMARATE 25 MG TABLET PO SCH (22:25)
[2016-10-08] MEDS: LEVOTHYROXINE SODIUM 0.05 MG TABLET PO SCH (11:21)
[2016-10-08] MEDS: TAMSULOSIN HCL 0.4 MG CAP.SR.24H PO SCH (11:21)
[2016-10-08] MEDS: ATENOLOL 50 MG TABLET PO SCH (11:22)
[2016-10-08] MEDS: LEVETIRACETAM 500 MG TABLET PO SCH ×2 (11:22→18:30)
[2016-10-08] MEDS: DOCUSATE SODIUM 100 MG CAPSULE PO SCH (11:24)
--- NOTE | 2016-10-08 16:09 | PDOC PROGRESS REPORT ---
Subjective Progress Note for:: 10/08/16 Subjective:: Patient at bedside and review is obtained from her. Patient is unable to provide ROS secondary to dementia. Patient had several hard BMs overnight and today. Patient began having some vomiting and abdominal pain with this. Noted on bladder scan to have more than 500mL of urine in bladder. Nursing reports out more than 750mL of urine after sparks placement. Physical Exam Vital Signs: Temp Pulse Resp BP Pulse Ox 97.7 F 109 H 19 166/103 H 100 10/08/16 07:59 10/08/16 07:59 10/08/16 00:00 10/08/16 07:59 10/08/16 07:59 Pulse Oximeter Continuous Start: 10/02/16 23: 22 Freq: Status: Complete Document 10/02/16 22:00 [facility] (Rec: 10/02/16 23:24 [facility] [email or web address]) Pulse Oximetry Assessment Oxygen Saturation (92-100) 98 Oxygen Delivery Method Non-Rebreather Fraction of Inspired Oxygen (FIO2) 100 Equipment Usage Initial Set Up Continuous Pulse Oximeter 24 Hour Charge Charge Now Continuous SpO2 Machine # N-6 Pulse Oximeter Continuous Start: 10/03/16 00: 03 Freq: RTQ4 Status: Complete Document 10/07/16 11:07 [facility] (Rec: 10/07/16 11:07 [facility]DA [email or web address]) Pulse Oximetry Assessment Equipment Usage Equipment Discontinued Continuous SpO2 Machine # 6 Intake & Output 10/07/16 10/08/16 10/09/16 06:59 06:59 06:59 Intake Total 820 243 Output Total 1820 Balance -1000 243 Weight 70.4 kg 71.2 kg Exam: GENERAL: No acute distress, resting comfortably, and rouses to gentle stimuli HEENT: Conjunctiva clear, nonicteric, moist mucous membranes, no JVD, midline trachea RESPIRATORY: Clear to auscultation bilaterally CARDIAC: Regular rate and rhythm, no murmurs/gallops/rubs ABDOMEN: Distended with palpable bladder, TTP, active bowel sounds, no rebound, no rigidity, no guarding EXTREMETIES: trace edema RLE, bandage in place c/d/i with ecchymosis, no cyanosis, no clubbing NEUROLOGIC: resting comfortably, CN's grossly intact, no focal deficits Results Laboratory Results: 10/07/16 04:17 10/07/16 04:17 10/02/16 10/03/16 10/03/16 23:18 05:47 12:29 Troponin I 0.063 0.066 0.046 Impressions: Cervical Spine CT 10/01/16 14:42 IMPRESSION: No acute fracture or malalignment. Central canal stenosis at C3-4 , bilateral foraminal narrowing at C3-4, C4-5, and C5-6. Head CT 10/01/16 14:42 IMPRESSION: CHRONIC CHANGES OF ATROPHY AND MICROVASCULAR ISCHEMIA. NO ACUTE PROCESS. Chest X-Ray 10/02/16 00:00 IMPRESSION: COPD. No acute findings Lung Scan-VQ NM 10/03/16 00:41 IMPRESSION: No evidence of pulmonary embolus (very low probability). Hip/Pelvis X-Ray 10/03/16 08:00 IMPRESSION: Post right hip replacement in good alignment. Assessment & Plan - Diagnosis (1) Acute blood loss anemia Is this a current diagnosis for this admission?: YesPlan: Stable. Continue to monitor and transfuse if Hgb is below 8. (2) Acute encephalopathy Is this a current diagnosis for this admission?: YesPlan: Decrease amount of available narcotics and monitor. Likely secondary to prolonged effect of anesthesia. Apparently back to baseline (3) Alzheimer's dementia Qualifiers: Alzheimer's disease onset: other onset Dementia behavioral disturbance : without behavioral disturbance Qualified Code(s): G30.8 - Other Alzheimer's disease; F02.81 - Dementia in other diseases classified elsewhere with behavioral disturbance Is this a current diagnosis for this admission?: YesPlan: At baseline, patient is unable to do much other than feed himself. He is not normally oriented in any capacity per family reports. Continue Aricept, haldol, ativan, seroquel (4) Fracture of femoral neck Qualifiers: Encounter type: initial encounter Fracture type: closed Laterality : right Qualified Code(s): S72.001A - Fracture of unspecified part of neck of right femur, initial encounter for closed fracture Is this a current diagnosis for this admission?: YesPlan: Defer to orthopedics. Did discuss limited rehab potential with his . (5) Hematuria Qualifiers: Hematuria type: unspecified type Qualified Code(s): R31.9 - Hematuria, unspecified Is this a current diagnosis for this admission?: Yes (6) BPH (benign prostatic hyperplasia) Qualifiers: Lower urinary tract symptom presence: unspecified whether lower urinary tract symptoms present Qualified Code(s): N40.0 - Benign prostatic hyperplasia without lower urinary tract symptoms Is this a current diagnosis for this admission?: YesPlan: Appreciate urology. Send patient back to [place] with sparks in place and can follow outpatient with urology at [facility]. Continue finasteride and increase flomax. (7) Hypertension Qualifiers: Hypertension type: essential hypertension Qualified Code(s): I10 - Essential (primary) hypertension Is this a current diagnosis for this admission?: Yes (8) Hypothyroid Qualifiers: Hypothyroidism type: acquired Qualified Code(s): E03.9 - Hypothyroidism, unspecified Is this a current diagnosis for this admission?: Yes (9) Pacemaker Is this a current diagnosis for this admission?: Yes (10) Vitamin B 12 deficiency Is this a current diagnosis for this admission?: Yes (11) Do not resuscitate Is this a current diagnosis for this admission?: Yes - Time Time Spent with patient: 25-34 minutes Medications reviewed and adjusted accordingly: Yes Anticipated discharge: SNF Within: within 24 hours - Inpatient Certification Based on my medical assessment, after consideration of the patient's comorbidities, presenting symptoms, or acuity I expect that the services needed warrant INPATIENT care.: Yes I certify that my determination is in accordance with my understanding of Medicare's requirements for reasonable and necessary INPATIENT services [42 CFR 412.3e].: Yes Medical Necessity: Risk of Complication if Not Cared For in Hospital Post Hospital Care: D/C Social And Human Services Assistant Documentation
--- NOTE | 2016-10-08 16:58 | RADIOLOGY REPORT (SQ) ---
EXAM DESCRIPTION: KUB/ABDOMEN (SINGLE VIEW) COMPLETED DATE/TIME: 10/08/2016 4:46 pm REASON FOR STUDY: abdominal pain COMPARISON: None. NUMBER OF VIEWS: One view. TECHNIQUE: Supine radiographic image of the abdomen acquired. LIMITATIONS: None. FINDINGS: BOWEL GAS PATTERN: There are gas-filled loops of small and large bowel with no significant distention. The overall appearance does not suggest obstruction. CALCIFICATIONS: No suspicious calcifications. SOFT TISSUES: No gross mass or suggestion of organomegaly. HARDWARE: Surgical clips in the gallbladder fossa. Bilateral hip arthroplasties. BONES: No acute fracture. No worrisome bone lesions. OTHER: No other significant finding. IMPRESSION: NO RADIOGRAPHIC EVIDENCE FOR ACUTE ABDOMINAL DISEASE. TECHNICAL DOCUMENTATION: JOB ID: [id number] [employer]- All Rights Reserved
[2016-10-08] MEDS ORDERED: LORAZEPAM INJ 2 MG/1 ML VIAL IV ONE (17:30)
[2016-10-08] MEDS ORDERED: HALOPERIDOL LACTATE INJ 5 MG/1 ML VIAL IV ONE (17:30)
[2016-10-08] MEDS ORDERED: TAMSULOSIN HCL 0.4 MG CAP.SR.24H PO SCH (18:00)
[2016-10-08] MEDS ORDERED: BISACODYL 5 MG TABEC PO SCH (22:00)
[2016-10-08] MEDS: DONEPEZIL HCL 5 MG TABLET PO SCH (22:20)
[2016-10-08] MEDS: FINASTERIDE 5 MG TABLET PO SCH (22:20)
[2016-10-08] MEDS: QUETIAPINE FUMARATE 25 MG TABLET PO SCH (22:20)
[2016-10-09] MEDS ORDERED: RINGERS SOLUTION,LACTATED 500 ML IV ONE (09:40)
[2016-10-09] MEDS: LEVETIRACETAM 500 MG TABLET PO SCH ×2 (11:03→17:22)
[2016-10-09] MEDS: LEVOTHYROXINE SODIUM 0.05 MG TABLET PO SCH (11:03)
[2016-10-09] MEDS: DOCUSATE SODIUM 100 MG CAPSULE PO SCH ×2 (11:04→17:22)
[2016-10-09] MEDS: ATENOLOL 50 MG TABLET PO SCH (11:05)
--- NOTE | 2016-10-09 14:30 | PDOC PROGRESS REPORT ---
Subjective Progress Note for:: 10/09/16 Subjective:: Patient at bedside and review is obtained from her. Patient is unable to provide ROS secondary to dementia. Yesterday, patient initially had clear urine when Sparks was replaced, but has subsequently turned to dark ross hematuria. Urine still draining. reports that patient is difficult to arouse this morning and apparently slept through the night. She reports prior difficulty with high doses of Flomax due to hypotension. Patient is borderline hypotensive this morning after increasing his Flomax yesterday. Physical Exam Vital Signs: Temp Pulse Resp BP Pulse Ox 97.4 F 68 17 97/54 L 99 10/09/16 11:46 10/09/16 11:46 10/09/16 11:46 10/09/16 11:46 10/09/16 11:46 Pulse Oximeter Continuous Start: 10/02/16 23: 22 Freq: Status: Complete Document 10/02/16 22:00 [facility] (Rec: 10/02/16 23:24 [facility] [email or web address]) Pulse Oximetry Assessment Oxygen Saturation (92-100) 98 Oxygen Delivery Method Non-Rebreather Fraction of Inspired Oxygen (FIO2) 100 Equipment Usage Initial Set Up Continuous Pulse Oximeter 24 Hour Charge Charge Now Continuous SpO2 Machine # N-6 Pulse Oximeter Continuous Start: 10/03/16 00: 03 Freq: RTQ4 Status: Complete Document 10/07/16 11:07 LDA (Rec: 10/07/16 11:07 [email or web address] [email or web address]) Pulse Oximetry Assessment Equipment Usage Equipment Discontinued Continuous SpO2 Machine # 6 Intake & Output 10/08/16 10/09/16 10/10/16 06:59 06:59 06:59 Intake Total 243 343 Output Total 1000 Balance 243 -657 Weight 71.2 kg 68.4 kg Exam: GENERAL: No acute distress, resting comfortably, and rouses to noxius stimuli HEENT: Conjunctiva clear, nonicteric, moist mucous membranes, no JVD, midline trachea RESPIRATORY: Clear to auscultation bilaterally CARDIAC: Regular rate and rhythm, no murmurs/gallops/rubs ABDOMEN: soft, NTTP, active bowel sounds, no rebound, no rigidity, no guarding : sparks in place draining dark red urine EXTREMETIES: trace edema RLE, bandage in place c/d/i with ecchymosis, no cyanosis, no clubbing NEUROLOGIC: resting comfortably, moves limbs, unoriented at baseline Results Laboratory Results: 10/07/16 04:17 10/07/16 04:17 10/02/16 10/03/16 10/03/16 23:18 05:47 12:29 Troponin I 0.063 0.066 0.046 Impressions: Cervical Spine CT 10/01/16 14:42 IMPRESSION: No acute fracture or malalignment. Central canal stenosis at C3-4 , bilateral foraminal narrowing at C3-4, C4-5, and C5-6. Head CT 10/01/16 14:42 IMPRESSION: CHRONIC CHANGES OF ATROPHY AND MICROVASCULAR ISCHEMIA. NO ACUTE PROCESS. Chest X-Ray 10/02/16 00:00 IMPRESSION: COPD. No acute findings Lung Scan-VQ NM 10/03/16 00:41 IMPRESSION: No evidence of pulmonary embolus (very low probability). Hip/Pelvis X-Ray 10/03/16 08:00 IMPRESSION: Post right hip replacement in good alignment. KUB X-Ray 10/08/16 00:00 IMPRESSION: NO RADIOGRAPHIC EVIDENCE FOR ACUTE ABDOMINAL DISEASE. Assessment & Plan - Diagnosis (1) Hematuria Qualifiers: Hematuria type: unspecified type Qualified Code(s): R31.9 - Hematuria, unspecified Is this a current diagnosis for this admission?: Yes Plan: Have discussed case with urology. Sparks replaced. Will flush Repeat CT pelvis Concern for occult malignancy Will need OP follow up with urology Unable to tolerate high dose flomax Continue flomax and finasteride (2) Acute blood loss anemia Is this a current diagnosis for this admission?: Yes Plan: Stable. Continue to monitor and transfuse if Hgb is below 8. (3) Acute encephalopathy Is this a current diagnosis for this admission?: Yes Plan: Decrease amount of available narcotics and monitor. Likely secondary to prolonged effect of anesthesia. Apparently back to baseline (4) Alzheimer's dementia Qualifiers: Alzheimer's disease onset: other onset Dementia behavioral disturbance: without behavioral disturbance Qualified Code(s): G30.8 - Other Alzheimer's disease; F02.80 - Dementia in other diseases classified elsewhere without behavioral disturbance Is this a current diagnosis for this admission?: Yes Plan: At baseline, patient is unable to do much other than feed himself. He is not normally oriented in any capacity per family reports. Continue haldol, ativan, seroquel Stop aricept (5) Fracture of femoral neck Qualifiers: Encounter type: initial encounter Fracture type: closed Laterality: right Qualified Code(s): S72.001A - Fracture of unspecified part of neck of right femur, initial encounter for closed fracture Is this a current diagnosis for this admission?: Yes Plan: Defer to orthopedics. Did discuss limited rehab potential with his . (6) BPH (benign prostatic hyperplasia) Qualifiers: Lower urinary tract symptom presence: unspecified whether lower urinary tract symptoms present Qualified Code(s): N40.0 - Benign prostatic hyperplasia without lower urinary tract symptoms Is this a current diagnosis for this admission?: Yes (7) Hypertension Qualifiers: Hypertension type: essential hypertension Qualified Code(s): I10 - Essential (primary) hypertension Is this a current diagnosis for this admission?: Yes Plan: atenolol with hold paramenter (8) Hypothyroid Qualifiers: Hypothyroidism type: acquired Qualified Code(s): E03.9 - Hypothyroidism, unspecified Is this a current diagnosis for this admission?: Yes (9) Pacemaker Is this a current diagnosis for this admission?: Yes (10) Vitamin B 12 deficiency Is this a current diagnosis for this admission?: Yes (11) Do not resuscitate Is this a current diagnosis for this admission?: Yes - Time Time Spent with patient: 25-34 minutes Medications reviewed and adjusted accordingly: Yes Anticipated discharge: SNF Within: within 48 hours - Inpatient Certification Based on my medical assessment, after consideration of the patient's comorbidities, presenting symptoms, or acuity I expect that the services needed warrant INPATIENT care.: Yes I certify that my determination is in accordance with my understanding of Medicare's requirements for reasonable and necessary INPATIENT services [42 CFR 412.3e].: Yes Medical Necessity: Need For IV Fluids 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
[2016-10-09] MEDS: TAMSULOSIN HCL 0.4 MG CAP.SR.24H PO SCH (17:22)
[2016-10-09] MEDS: FINASTERIDE 5 MG TABLET PO SCH (21:19)
[2016-10-09] MEDS: QUETIAPINE FUMARATE 25 MG TABLET PO SCH (21:19)
[2016-10-09] MEDS ORDERED: SENNOSIDES/DOCUSATE 8.6-50 MG 1 EACH TABLET PO SCH (22:00)
[2016-10-09] MEDS: RINGERS SOLUTION,LACTATED 1,000 ML IV PRN (23:55)
[2016-10-10 05:54] LABS: BLOOD UREA NITROGEN 29 mg/dL (7-20); CALCIUM 8.4 mg/dL (8.4-10.2); CARBON DIOXIDE 30 mmol/L (22-30); CHLORIDE 102 mmol/L (98-107); GLUCOSE 84 mg/dL (75-110); POTASSIUM 3.8 mmol/L (3.6-5.0)
[2016-10-10 05:59] LABS: ABSOLUTE BASOPHILS # (AUTO) 0.1 10^3/uL (0.0-0.2); ABSOLUTE EOSINOPHILS # (AUTO) 0.1 10^3/uL (0.0-0.6); ABSOLUTE LYMPHOCYTES (AUTO) 1.6 10^3/uL (0.5-4.7); ABSOLUTE MONOCYTES (AUTO) 0.8 10^3/uL (0.1-1.4); ABSOLUTE NEUT (AUTO) 6.9 10^3/uL (1.7-8.2); BASOPHILS % (AUTO) 0.7 % (0-2); HEMATOCRIT 20.6 % (37.9-51.0); HGB HCT DIFFERENCE 0.4; LYMPHOCYTES % (AUTO) 17.3 % (13-45); MEAN CORPUSCULAR HEMOGLOBIN 30.2 pg (27.0-33.4); MEAN CORPUSCULAR HGB CONC 33.9 g/dL (32.0-36.0); MEAN CORPUSCULAR VOLUME 89 fl (80-97); MONOCYTES % (AUTO) 7.9 % (3-13); RED BLOOD COUNT 2.32 10^6/uL (4.35-5.55); RED CELL DISTRIBUTION WIDTH 15.7 % (11.5-14.0); SEGMENTED NEUTROPHILS % (AUTO) 73.1 % (42-78); WHITE BLOOD COUNT 9.5 10^3/uL (4.0-10.5)
[2016-10-10 06:06] LABS: ANION GAP 3 (5-19); SODIUM 135.4 mmol/L (137-145)
[2016-10-10] MEDS ORDERED: NORMAL SALINE 250 ML IV PRN ×2 (08:07)
[2016-10-10] MEDS: LEVETIRACETAM 500 MG TABLET PO SCH ×2 (09:07→17:09)
[2016-10-10] MEDS: DOCUSATE SODIUM 100 MG CAPSULE PO SCH ×2 (09:07→17:09)
[2016-10-10] MEDS ORDERED: POLYETHYLENE GLYCOL 3350 POWDER 17 GM/1 PACKET PO SCH (10:00)
[2016-10-10] MEDS: LEVOTHYROXINE SODIUM 0.05 MG TABLET PO SCH (10:37)
[2016-10-10] MEDS ORDERED: MAGNESIUM HYDROXIDE SUSP 30 ML UDCUP PO PRN (11:00)
--- NOTE | 2016-10-10 14:11 | PDOC PROGRESS REPORT ---
Subjective Progress Note for:: 10/10/16 Subjective:: 76-year-old gentleman who is 1 week out from right hip hemiarthroplasty. No issues with the surgical site or therapy but patient having some bloody urine which will require urology consult. Daughter bedside states other than that no other issues except for some lethargy yesterday. She states today he is much better. Physical Exam Vital Signs: Temp Pulse Resp BP Pulse Ox 36.7 C 73 16 126/82 H 97 10/10/16 12:29 10/10/16 12:29 10/10/16 12:29 10/10/16 12:29 10/10/16 12:29 Pulse Oximeter Continuous Start: 10/02/16 23: 22 Freq: Status: Complete Document 10/02/16 22:00 [facility] (Rec: 10/02/16 23:24 [facility] [email or web address]) Pulse Oximetry Assessment Oxygen Saturation (92-100) 98 Oxygen Delivery Method Non-Rebreather Fraction of Inspired Oxygen (FIO2) 100 Equipment Usage Initial Set Up Continuous Pulse Oximeter 24 Hour Charge Charge Now Continuous SpO2 Machine # N-6 Pulse Oximeter Continuous Start: 10/03/16 00: 03 Freq: RTQ4 Status: Complete Document 10/07/16 11:07 LDA (Rec: 10/07/16 11:07 LDA [email or web address]) Pulse Oximetry Assessment Equipment Usage Equipment Discontinued Continuous SpO2 Machine # 6 Intake & Output 10/09/16 10/10/16 10/11/16 06:59 06:59 06:59 Intake Total 343 1553 0 Output Total 1000 1200 Balance -657 353 0 Weight 68.4 kg 68.3 kg Adult Front & Back Image: 1 - Incision and pamela are dry clean and intact. Results Laboratory Results: 10/10/16 04:37 10/10/16 04:37 10/10/16 10/10/16 10/10/16 04:37 04:37 08:49 WBC 9.5 RBC 2.32 L Hgb 7.0 L Hct 20.6 L MCV 89 MCH 30.2 MCHC 33.9 RDW 15.7 H Plt Count 372 Seg Neutrophils % 73.1 Lymphocytes % 17.3 Monocytes % 7.9 Eosinophils % 1.0 Basophils % 0.7 Absolute Neutrophils 6.9 Absolute Lymphocytes 1.6 Absolute Monocytes 0.8 Absolute Eosinophils 0.1 Absolute Basophils 0.1 Sodium 135.4 L Potassium 3.8 Chloride 102 Carbon Dioxide 30 Anion Gap 3 L BUN 29 H Creatinine 0.90 Est GFR ( Amer) > 60 Est GFR (Non-Af Amer) > 60 Glucose 84 Calcium 8.4 Blood Type O NEGATIVE Antibody Screen NEGATIVE 10/02/16 10/03/16 10/03/16 23:18 05:47 12:29 Troponin I 0.063 0.066 0.046 Impressions: Cervical Spine CT 10/01/16 14:42 IMPRESSION: No acute fracture or malalignment. Central canal stenosis at C3-4 , bilateral foraminal narrowing at C3-4, C4-5, and C5-6. Head CT 10/01/16 14:42 IMPRESSION: CHRONIC CHANGES OF ATROPHY AND MICROVASCULAR ISCHEMIA. NO ACUTE PROCESS. Chest X-Ray 10/02/16 00:00 IMPRESSION: COPD. No acute findings Lung Scan-VQ NM 10/03/16 00:41 IMPRESSION: No evidence of pulmonary embolus (very low probability). Hip/Pelvis X-Ray 10/03/16 08:00 IMPRESSION: Post right hip replacement in good alignment. KUB X-Ray 10/08/16 00:00 IMPRESSION: NO RADIOGRAPHIC EVIDENCE FOR ACUTE ABDOMINAL DISEASE. Assessment & Plan - Diagnosis (1) Fracture of femoral neck Qualifiers: Encounter type: initial encounter Fracture type: closed Laterality: right Qualified Code(s): S72.001A - Fracture of unspecified part of neck of right femur, initial encounter for closed fracture Is this a current diagnosis for this admission?: Yes - Plan Summary Plan Summary: Patient is 76-year-old Alzheimer dementia patient POD #8 from right hip hemiarthroplasty. Continue physical therapy Continue DVT prophylaxis Appreciative of hospitalist service addressing his medical issues. Once these are stable and patient can return to shelter facility. Agree with blood transfusion
--- NOTE | 2016-10-10 15:24 | PDOC PROGRESS REPORT ---
Subjective Progress Note for:: 10/10/16 Subjective:: Patient at bedside and review is obtained from her. Patient is unable to provide ROS secondary to dementia. patient continues to have ross hematuria Physical Exam Vital Signs: Temp Pulse Resp BP Pulse Ox 98.1 F 68 18 145/89 H 96 10/10/16 14:09 10/10/16 14:09 10/10/16 14:09 10/10/16 14:09 10/10/16 14:09 Pulse Oximeter Continuous Start: 10/02/16 23: 22 Freq: Status: Complete Document 10/02/16 22:00 [facility] (Rec: 10/02/16 23:24 [facility] [email or web address]) Pulse Oximetry Assessment Oxygen Saturation (92-100) 98 Oxygen Delivery Method Non-Rebreather Fraction of Inspired Oxygen (FIO2) 100 Equipment Usage Initial Set Up Continuous Pulse Oximeter 24 Hour Charge Charge Now Continuous SpO2 Machine # N-6 Pulse Oximeter Continuous Start: 10/03/16 00: 03 Freq: RTQ4 Status: Complete Document 10/07/16 11:07 LDA (Rec: 10/07/16 11:07 LDA [email or web address]) Pulse Oximetry Assessment Equipment Usage Equipment Discontinued Continuous SpO2 Machine # 6 Intake & Output 10/09/16 10/10/16 10/11/16 06:59 06:59 06:59 Intake Total 343 1553 300 Output Total 1000 1200 Balance -657 353 300 Weight 68.4 kg 68.3 kg Exam: GENERAL: No acute distress, awake and interactive HEENT: Conjunctiva clear, nonicteric, moist mucous membranes, no JVD, midline trachea RESPIRATORY: Clear to auscultation bilaterally CARDIAC: Regular rate and rhythm, no murmurs/gallops/rubs ABDOMEN: soft, NTTP, active bowel sounds, no rebound, no rigidity, no guarding : sparks in place draining red urine EXTREMETIES: no edema, ecchymosis, no cyanosis, no clubbing NEUROLOGIC: awake, interactive, moves limbs, unoriented at baseline Results Laboratory Results: 10/10/16 04:37 10/10/16 04:37 10/10/16 10/10/16 10/10/16 04:37 04:37 08:49 WBC 9.5 RBC 2.32 L Hgb 7.0 L Hct 20.6 L MCV 89 MCH 30.2 MCHC 33.9 RDW 15.7 H Plt Count 372 Seg Neutrophils % 73.1 Lymphocytes % 17.3 Monocytes % 7.9 Eosinophils % 1.0 Basophils % 0.7 Absolute Neutrophils 6.9 Absolute Lymphocytes 1.6 Absolute Monocytes 0.8 Absolute Eosinophils 0.1 Absolute Basophils 0.1 Sodium 135.4 L Potassium 3.8 Chloride 102 Carbon Dioxide 30 Anion Gap 3 L BUN 29 H Creatinine 0.90 Est GFR ( Amer) > 60 Est GFR (Non-Af Amer) > 60 Glucose 84 Calcium 8.4 Blood Type O NEGATIVE Antibody Screen NEGATIVE 10/02/16 10/03/16 10/03/16 23:18 05:47 12:29 Troponin I 0.063 0.066 0.046 Impressions: Cervical Spine CT 10/01/16 14:42 IMPRESSION: No acute fracture or malalignment. Central canal stenosis at C3-4 , bilateral foraminal narrowing at C3-4, C4-5, and C5-6. Head CT 10/01/16 14:42 IMPRESSION: CHRONIC CHANGES OF ATROPHY AND MICROVASCULAR ISCHEMIA. NO ACUTE PROCESS. Chest X-Ray 10/02/16 00:00 IMPRESSION: COPD. No acute findings Lung Scan-VQ NM 10/03/16 00:41 IMPRESSION: No evidence of pulmonary embolus (very low probability). Hip/Pelvis X-Ray 10/03/16 08:00 IMPRESSION: Post right hip replacement in good alignment. KUB X-Ray 10/08/16 00:00 IMPRESSION: NO RADIOGRAPHIC EVIDENCE FOR ACUTE ABDOMINAL DISEASE. Assessment & Plan - Diagnosis (1) Hematuria Qualifiers: Hematuria type: unspecified type Qualified Code(s): R31.9 - Hematuria, unspecified Is this a current diagnosis for this admission?: Yes Plan: Have discussed case with urology, Dr. Alvarez CT pelvis negative for gross abnormality Concern for occult malignancy Will need OP follow up with urology Unable to tolerate high dose flomax Continue flomax and finasteride (2) Acute blood loss anemia Is this a current diagnosis for this admission?: Yes Plan: Stable. Give 1 unit PRBC (3) Acute encephalopathy Is this a current diagnosis for this admission?: Yes Plan: Decrease amount of available narcotics and monitor. Likely secondary to prolonged effect of anesthesia. Apparently back to baseline (4) Alzheimer's dementia Qualifiers: Alzheimer's disease onset: other onset Dementia behavioral disturbance: without behavioral disturbance Qualified Code(s): G30.8 - Other Alzheimer's disease; F02.80 - Dementia in other diseases classified elsewhere without behavioral disturbance Is this a current diagnosis for this admission?: Yes Plan: At baseline, patient is unable to do much other than feed himself. He is not normally oriented in any capacity per family reports. Continue haldol, ativan, seroquel Stop aricept (5) Fracture of femoral neck Qualifiers: Encounter type: subsequent encounter Fracture type: closed Laterality: right Fracture healing: with routine healing Qualified Code(s): S72.001D - Fracture of unspecified part of neck of right femur, subsequent encounter for closed fracture with routine healing Is this a current diagnosis for this admission?: Yes Plan: Defer to orthopedics. Did discuss limited rehab potential with his . (6) BPH (benign prostatic hyperplasia) Qualifiers: Lower urinary tract symptom presence: unspecified whether lower urinary tract symptoms present Qualified Code(s): N40.0 - Benign prostatic hyperplasia without lower urinary tract symptoms Is this a current diagnosis for this admission?: Yes Plan: Appreciate urology. Send patient back to [place] with sparks in place and can follow outpatient with urology at [facility]. Continue finasteride and flomax. (7) Hypertension Qualifiers: Hypertension type: essential hypertension Qualified Code(s): I10 - Essential (primary) hypertension Is this a current diagnosis for this admission?: Yes Plan: atenolol with hold paramenter (8) Hypothyroid Qualifiers: Hypothyroidism type: acquired Qualified Code(s): E03.9 - Hypothyroidism, unspecified Is this a current diagnosis for this admission?: Yes Plan: Continue synthroid (9) Pacemaker Is this a current diagnosis for this admission?: Yes (10) Vitamin B 12 deficiency Is this a current diagnosis for this admission?: Yes (11) Do not resuscitate Is this a current diagnosis for this admission?: Yes - Time Time Spent with patient: 25-34 minutes Medications reviewed and adjusted accordingly: Yes Anticipated discharge: SNF Within: within 48 hours - Inpatient Certification Based on my medical assessment, after consideration of the patient's comorbidities, presenting symptoms, or acuity I expect that the services needed warrant INPATIENT care.: Yes I certify that my determination is in accordance with my understanding of Medicare's requirements for reasonable and necessary INPATIENT services [42 CFR 412.3e].: Yes Medical Necessity: Need For IV Fluids Post Hospital 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
[2016-10-10 16:29] LABS: ABSOLUTE EOSINOPHILS # (AUTO) 0.1 10^3/uL (0.0-0.6); ABSOLUTE LYMPHOCYTES (AUTO) 1.3 10^3/uL (0.5-4.7); ABSOLUTE MONOCYTES (AUTO) 0.8 10^3/uL (0.1-1.4); ABSOLUTE NEUT (AUTO) 7.6 10^3/uL (1.7-8.2); BASOPHILS % (AUTO) 0.4 % (0-2); EOSINOPHILS % (AUTO) 0.6 % (0-6); HEMOGLOBIN 8.4 g/dL (13.5-17.0); HGB HCT DIFFERENCE 0.2; LYMPHOCYTES % (AUTO) 13.4 % (13-45); MEAN CORPUSCULAR HEMOGLOBIN 29.7 pg (27.0-33.4); MEAN CORPUSCULAR HGB CONC 33.8 g/dL (32.0-36.0); MEAN CORPUSCULAR VOLUME 88 fl (80-97); MONOCYTES % (AUTO) 7.7 % (3-13); RED BLOOD COUNT 2.84 10^6/uL (4.35-5.55); RED CELL DISTRIBUTION WIDTH 16.4 % (11.5-14.0); SEGMENTED NEUTROPHILS % (AUTO) 77.9 % (42-78); WHITE BLOOD COUNT 9.8 10^3/uL (4.0-10.5)
[2016-10-10] MEDS: ATENOLOL 50 MG TABLET PO SCH (17:06)
[2016-10-10] MEDS: TAMSULOSIN HCL 0.4 MG CAP.SR.24H PO SCH (17:09)
[2016-10-10] MEDS: FINASTERIDE 5 MG TABLET PO SCH (21:12)
[2016-10-10] MEDS: SENNOSIDES/DOCUSATE 8.6-50 MG 1 EACH TABLET PO SCH (21:12)
[2016-10-10] MEDS: QUETIAPINE FUMARATE 25 MG TABLET PO SCH (21:12)
[2016-10-11] MEDS: LEVOTHYROXINE SODIUM 0.05 MG TABLET PO SCH (05:10)
[2016-10-11] MEDS: ATENOLOL 50 MG TABLET PO SCH (09:03)
[2016-10-11] MEDS: LEVETIRACETAM 500 MG TABLET PO SCH ×2 (09:03→17:46)
[2016-10-11] MEDS: DOCUSATE SODIUM 100 MG CAPSULE PO SCH ×2 (09:03→17:47)
[2016-10-11 09:05] LABS: ABSOLUTE LYMPHOCYTES (AUTO) 1.5 10^3/uL (0.5-4.7); ABSOLUTE MONOCYTES (AUTO) 0.7 10^3/uL (0.1-1.4); ABSOLUTE NEUT (AUTO) 6.8 10^3/uL (1.7-8.2); BASOPHILS % (AUTO) 0.2 % (0-2); EOSINOPHILS % (AUTO) 0.4 % (0-6); HEMATOCRIT 24.2 % (37.9-51.0); HGB HCT DIFFERENCE -0.2; LYMPHOCYTES % (AUTO) 16.6 % (13-45); MEAN CORPUSCULAR HEMOGLOBIN 29.4 pg (27.0-33.4); MEAN CORPUSCULAR VOLUME 89 fl (80-97); RED BLOOD COUNT 2.72 10^6/uL (4.35-5.55); RED CELL DISTRIBUTION WIDTH 16.4 % (11.5-14.0); SEGMENTED NEUTROPHILS % (AUTO) 74.8 % (42-78); WHITE BLOOD COUNT 9.1 10^3/uL (4.0-10.5)
--- NOTE | 2016-10-11 13:21 | CONSULTATION REPORT E ---
Consultation Report NAME: JOSH AMES : 1940 AGE: 76Y DATE: 10/10/2016 408 A TO: JOHNNA HALL M.D., Ph.D. FROM: MARGARITA HOBBS Requesting Physician IMPRESSION: 1. Gross hematuria. 2. Status post TURP 2 years ago with post TURP bleeding. 3. Anemia due to blood loss. RECOMMENDATIONS: Insertion of a 22-Malaw[place] 3-way Diaz with continuous bladder irrigation. If he continues to have bleeding, he may require cystoscopy with fulguration. I recommend keeping him n.p.o. after midnight with reassessment in the morning. CONSULTATION: The patient is a 76-year-old gentleman who I saw 4 days ago for hematuria. His states that since he had a TURP several years ago he has bleeding any time a catheter is inserted. He had a hip fracture, which required an operation during this hospitalization. He had a Diaz catheter placed and he has had bleeding since then. He has been followed by [facility] in the past for this type of hematuria. He is taking finasteride, which can help with this type of bleeding. His most recent lab work shows a hemoglobin of 8.0. It was 7.0 yesterday, then after transfusion was 8.4. PROCEDURE NOTE: His Diaz catheter was removed and a 22-Malaw[place] 3-way Diaz was inserted without difficulty. The bladder was hand irrigated with a total of 300 mL of sterile saline. No clots were obtained. The Idaz was then placed to continuous bladder irrigation. I spoke with Dr. Strauss and she will check on him in the morning and give me a progress report. Nothing further is recommended at this point. DICTATING PHYSICIAN: JOHNNA HALL M.D., Ph.D [id number] PHY#: [id number] ID: [id number] JOB#: [id number] ACCT: [id number] cc:HOLLEY STRAUSS M.D. JOHNNA HALL M.D., Ph.D. >
[2016-10-11] MEDS: RINGERS SOLUTION,LACTATED 1,000 ML IV PRN (15:03)
--- NOTE | 2016-10-11 15:11 | RADIOLOGY REPORT (SQ) ---
EXAM DESCRIPTION: CT PELVIS WITHOUT COMPLETED DATE/TIME: CT pelvis without contrast 10/09/2016, 1503 hours REASON FOR STUDY: Hematuria COMPARISON: KUB 10/08/2016 Right hip films 10/03/2016, 10/01/2016 TECHNIQUE: CT scanning of the pelvis was performed without IV contrast, reviewed at bone and soft ti ssue windows with sagittal and coronal reconstructions. RADIATION DOSE: 7.3 mGy LIMITATIONS: Streak artifact from bilateral hip hardware FINDINGS: Patient has had a recent right hip replacement. There is very mild asymmetric swelling of the right gluteal muscle as compared to the left, a small intramuscular hematoma may be present. There is no fracture identified over the bony pelvis. Diaz catheter in the urinary bladder. There is blood clot in the bladder seen as hyperdense materia l adjacent to the Diaz balloon on axial image 38. Limitations and findings of this study were discussed with Dr. Sauer IMPRESSION: No pelvic fracture or intrapelvic hematoma. Asymmetric thickening of the right gluteal muscle, question intramuscular small hematoma. Diaz catheter balloon in the bladder. Adjacent blood clot seen as hyperdense material in the urinar y bladder.
--- NOTE | 2016-10-11 15:31 | PDOC PROGRESS REPORT ---
Subjective Progress Note for:: 10/11/16 Subjective:: Patient is unable to provide ROS secondary to dementia. patient continues to have ross hematuria Physical Exam Vital Signs: Temp Pulse Resp BP Pulse Ox 98.3 F 81 16 156/91 H 98 10/10/16 23:11 10/10/16 23:11 10/10/16 23:11 10/10/16 23:11 10/10/16 23:11 Pulse Oximeter Continuous Start: 10/02/16 23: 22 Freq: Status: Complete Document 10/02/16 22:00 [facility] (Rec: 10/02/16 23:24 [facility] [email or web address]) Pulse Oximetry Assessment Oxygen Saturation (92-100) 98 Oxygen Delivery Method Non-Rebreather Fraction of Inspired Oxygen (FIO2) 100 Equipment Usage Initial Set Up Continuous Pulse Oximeter 24 Hour Charge Charge Now Continuous SpO2 Machine # N-6 Pulse Oximeter Continuous Start: 10/03/16 00: 03 Freq: RTQ4 Status: Complete Document 10/07/16 11:07 LDA (Rec: 10/07/16 11:07 LDA [email or web address]) Pulse Oximetry Assessment Equipment Usage Equipment Discontinued Continuous SpO2 Machine # 6 Intake & Output 10/10/16 10/11/16 10/12/16 06:59 06:59 06:59 Intake Total 1553 2390 Output Total 1200 1400 Balance 353 990 Weight 68.3 kg 68.3 kg Exam: GENERAL: No acute distress, resting comfortably and rouses to stimuli HEENT: Conjunctiva clear, nonicteric, moist mucous membranes, no JVD, midline trachea RESPIRATORY: Clear to auscultation bilaterally CARDIAC: Regular rate and rhythm, no murmurs/gallops/rubs ABDOMEN: soft, NTTP, active bowel sounds, no rebound, no rigidity, no guarding : sparks in place draining red urine EXTREMETIES: no edema, ecchymosis, no cyanosis, no clubbing NEUROLOGIC: cranial nerves grossly intact, moves limbs, unoriented at baseline Results Laboratory Results: 10/10/16 16:20 10/10/16 04:37 10/10/16 10/10/16 08:49 16:20 WBC 9.8 RBC 2.84 L Hgb 8.4 L Hct 25.0 L MCV 88 MCH 29.7 MCHC 33.8 RDW 16.4 H Plt Count 372 Seg Neutrophils % 77.9 Lymphocytes % 13.4 Monocytes % 7.7 Eosinophils % 0.6 Basophils % 0.4 Absolute Neutrophils 7.6 Absolute Lymphocytes 1.3 Absolute Monocytes 0.8 Absolute Eosinophils 0.1 Absolute Basophils 0.0 Blood Type O NEGATIVE Antibody Screen NEGATIVE 10/02/16 10/03/16 10/03/16 23:18 05:47 12:29 Troponin I 0.063 0.066 0.046 Impressions: Cervical Spine CT 10/01/16 14:42 IMPRESSION: No acute fracture or malalignment. Central canal stenosis at C3-4 , bilateral foraminal narrowing at C3-4, C4-5, and C5-6. Head CT 10/01/16 14:42 IMPRESSION: CHRONIC CHANGES OF ATROPHY AND MICROVASCULAR ISCHEMIA. NO ACUTE PROCESS. Chest X-Ray 10/02/16 00:00 IMPRESSION: COPD. No acute findings Lung Scan-VQ NM 10/03/16 00:41 IMPRESSION: No evidence of pulmonary embolus (very low probability). Hip/Pelvis X-Ray 10/03/16 08:00 IMPRESSION: Post right hip replacement in good alignment. KUB X-Ray 10/08/16 00:00 IMPRESSION: NO RADIOGRAPHIC EVIDENCE FOR ACUTE ABDOMINAL DISEASE. Assessment & Plan - Diagnosis (1) Hematuria Qualifiers: Hematuria type: unspecified type Qualified Code(s): R31.9 - Hematuria, unspecified Is this a current diagnosis for this admission?: Yes Plan: Have discussed case with urology, Dr. Shah and he will see patient today. CT pelvis negative for gross abnormality Concern for occult malignancy Will need OP follow up with urology Unable to tolerate high dose flomax Continue flomax and finasteride Plan for CBI and possible cystoscopy (2) Acute blood loss anemia Is this a current diagnosis for this admission?: Yes Plan: Still downtrending 1 unit PRBC on 10/10/17 (3) Acute encephalopathy Is this a current diagnosis for this admission?: Yes (4) Alzheimer's dementia Qualifiers: Alzheimer's disease onset: other onset Dementia behavioral disturbance: without behavioral disturbance Qualified Code(s): G30.8 - Other Alzheimer's disease; F02.80 - Dementia in other diseases classified elsewhere without behavioral disturbance Is this a current diagnosis for this admission?: Yes Plan: At baseline, patient is unable to do much other than feed himself. He is not normally oriented in any capacity per family reports. Continue haldol, ativan, seroquel Stop aricept (5) Fracture of femoral neck Qualifiers: Encounter type: subsequent encounter Fracture type: closed Laterality: right Fracture healing: with routine healing Qualified Code(s): S72.001D - Fracture of unspecified part of neck of right femur, subsequent encounter for closed fracture with routine healing Is this a current diagnosis for this admission?: Yes Plan: Defer to orthopedics. Did discuss limited rehab potential with his . (6) BPH (benign prostatic hyperplasia) Qualifiers: Lower urinary tract symptom presence: unspecified whether lower urinary tract symptoms present Qualified Code(s): N40.0 - Benign prostatic hyperplasia without lower urinary tract symptoms Is this a current diagnosis for this admission?: Yes (7) Hypertension Qualifiers: Hypertension type: essential hypertension Qualified Code(s): I10 - Essential (primary) hypertension Is this a current diagnosis for this admission?: Yes (8) Hypothyroid Qualifiers: Hypothyroidism type: acquired Qualified Code(s): E03.9 - Hypothyroidism, unspecified Is this a current diagnosis for this admission?: Yes (9) Pacemaker Is this a current diagnosis for this admission?: Yes (10) Vitamin B 12 deficiency Is this a current diagnosis for this admission?: Yes (11) Do not resuscitate Is this a current diagnosis for this admission?: Yes - Time Time Spent with patient: 25-34 minutes Medications reviewed and adjusted accordingly: Yes Anticipated discharge: SNF
[2016-10-11] MEDS: TAMSULOSIN HCL 0.4 MG CAP.SR.24H PO SCH (17:46)
[2016-10-11] MEDS: SENNOSIDES/DOCUSATE 8.6-50 MG 1 EACH TABLET PO SCH (22:07)
[2016-10-11] MEDS: QUETIAPINE FUMARATE 25 MG TABLET PO SCH (22:07)
[2016-10-11] MEDS: FINASTERIDE 5 MG TABLET PO SCH (22:07)
[2016-10-12] MEDS: LEVOTHYROXINE SODIUM 0.05 MG TABLET PO SCH (05:22)
[2016-10-12 08:11] LABS: ABSOLUTE EOSINOPHILS # (AUTO) 0.1 10^3/uL (0.0-0.6); ABSOLUTE LYMPHOCYTES (AUTO) 1.4 10^3/uL (0.5-4.7); ABSOLUTE MONOCYTES (AUTO) 0.7 10^3/uL (0.1-1.4); ABSOLUTE NEUT (AUTO) 6.6 10^3/uL (1.7-8.2); BASOPHILS % (AUTO) 0.4 % (0-2); EOSINOPHILS % (AUTO) 1.4 % (0-6); HEMATOCRIT 25.6 % (37.9-51.0); HEMOGLOBIN 8.7 g/dL (13.5-17.0); HGB HCT DIFFERENCE 0.5; LYMPHOCYTES % (AUTO) 15.8 % (13-45); MEAN CORPUSCULAR HEMOGLOBIN 29.7 pg (27.0-33.4); MEAN CORPUSCULAR VOLUME 87 fl (80-97); MONOCYTES % (AUTO) 7.8 % (3-13); RED BLOOD COUNT 2.93 10^6/uL (4.35-5.55); RED CELL DISTRIBUTION WIDTH 15.8 % (11.5-14.0); SEGMENTED NEUTROPHILS % (AUTO) 74.6 % (42-78); WHITE BLOOD COUNT 8.8 10^3/uL (4.0-10.5)
[2016-10-12 08:25] LABS: BLOOD UREA NITROGEN 18 mg/dL (7-20); CALCIUM 8.8 mg/dL (8.4-10.2); CARBON DIOXIDE 30 mmol/L (22-30); CHLORIDE 100 mmol/L (98-107); CREATININE RESULT 0.93 mg/dL (0.52-1.25); GLUCOSE 86 mg/dL (75-110)
[2016-10-12 08:34] LABS: POTASSIUM 4.2 mmol/L (3.6-5.0); SODIUM 133.6 mmol/L (137-145)
[2016-10-12 08:35] LABS: ANION GAP 4 (5-19)
[2016-10-12] MEDS: LEVETIRACETAM 500 MG TABLET PO SCH ×2 (10:21→18:50)
[2016-10-12] MEDS: DOCUSATE SODIUM 100 MG CAPSULE PO SCH ×2 (10:21→18:50)
[2016-10-12] MEDS: ATENOLOL 50 MG TABLET PO SCH (10:22)
--- NOTE | 2016-10-12 12:36 | PDOC PROGRESS REPORT ---
Subjective Progress Note for:: 10/12/16 Subjective:: Patient is unable to provide ROS secondary to dementia. patient had CBI all night and urine this am is clear with light pink sediment Physical Exam Vital Signs: Temp Pulse Resp BP Pulse Ox 98.0 F 54 L 14 123/75 100 10/12/16 08:00 10/12/16 08:00 10/12/16 08:00 10/12/16 08:00 10/12/16 08:00 Pulse Oximeter Continuous Start: 10/02/16 23: 22 Freq: Status: Complete Document 10/02/16 22:00 [facility] (Rec: 10/02/16 23:24 [facility] [email or web address]) Pulse Oximetry Assessment Oxygen Saturation (92-100) 98 Oxygen Delivery Method Non-Rebreather Fraction of Inspired Oxygen (FIO2) 100 Equipment Usage Initial Set Up Continuous Pulse Oximeter 24 Hour Charge Charge Now Continuous SpO2 Machine # N-6 Pulse Oximeter Continuous Start: 10/03/16 00: 03 Freq: RTQ4 Status: Complete Document 10/07/16 11:07 LDA (Rec: 10/07/16 11:07 [email or web address] [email or web address]) Pulse Oximetry Assessment Equipment Usage Equipment Discontinued Continuous SpO2 Machine # 6 Intake & Output 10/11/16 10/12/16 10/13/16 06:59 06:59 06:59 Intake Total 2390 1550 Output Total 1400 83891 Balance 990 -06857 Weight 68.3 kg 68.3 kg Exam: GENERAL: No acute distress, awake, alert, interactive HEENT: Conjunctiva clear, nonicteric, moist mucous membranes, no JVD, midline trachea RESPIRATORY: Clear to auscultation bilaterally CARDIAC: Regular rate and rhythm, no murmurs/gallops/rubs ABDOMEN: soft, NTTP, active bowel sounds, no rebound, no rigidity, no guarding : sparks in place draining pale pink urine EXTREMETIES: no edema, ecchymosis, no cyanosis, no clubbing NEUROLOGIC: cranial nerves grossly intact, moves limbs, unoriented at baseline Results Laboratory Results: 10/12/16 08:04 10/12/16 08:04 10/12/16 10/12/16 08:04 08:04 WBC 8.8 RBC 2.93 L Hgb 8.7 L Hct 25.6 L MCV 87 MCH 29.7 MCHC 34.0 RDW 15.8 H Plt Count 436 Seg Neutrophils % 74.6 Lymphocytes % 15.8 Monocytes % 7.8 Eosinophils % 1.4 Basophils % 0.4 Absolute Neutrophils 6.6 Absolute Lymphocytes 1.4 Absolute Monocytes 0.7 Absolute Eosinophils 0.1 Absolute Basophils 0.0 Sodium 133.6 L Potassium 4.2 Chloride 100 Carbon Dioxide 30 Anion Gap 4 L BUN 18 Creatinine 0.93 Est GFR ( Amer) > 60 Est GFR (Non-Af Amer) > 60 Glucose 86 Calcium 8.8 10/02/16 10/03/16 10/03/16 23:18 05:47 12:29 Troponin I 0.063 0.066 0.046 Impressions: Cervical Spine CT 10/01/16 14:42 IMPRESSION: No acute fracture or malalignment. Central canal stenosis at C3-4 , bilateral foraminal narrowing at C3-4, C4-5, and C5-6. Head CT 10/01/16 14:42 IMPRESSION: CHRONIC CHANGES OF ATROPHY AND MICROVASCULAR ISCHEMIA. NO ACUTE PROCESS. Chest X-Ray 10/02/16 00:00 IMPRESSION: COPD. No acute findings Lung Scan-VQ NM 10/03/16 00:41 IMPRESSION: No evidence of pulmonary embolus (very low probability). Hip/Pelvis X-Ray 10/03/16 08:00 IMPRESSION: Post right hip replacement in good alignment. KUB X-Ray 10/08/16 00:00 IMPRESSION: NO RADIOGRAPHIC EVIDENCE FOR ACUTE ABDOMINAL DISEASE. Pelvis CT 10/09/16 00:00 IMPRESSION: No pelvic fracture or intrapelvic hematoma. Asymmetric thickening of the right gluteal muscle, question intramuscular small hematoma. Sparks catheter balloon in the bladder. Adjacent blood clot seen as hyperdense material in the urinary bladder. Assessment & Plan - Diagnosis (1) Hematuria Qualifiers: Hematuria type: unspecified type Qualified Code(s): R31.9 - Hematuria, unspecified Is this a current diagnosis for this admission?: Yes Plan: Have discussed case with urology, Dr. Shah and he will see patient Friday for cystoscopy if return of hematuria or ongoing urinary retention. CT pelvis negative for gross abnormality Concern for occult malignancy Will need OP follow up with urology Unable to tolerate high dose flomax 2/2 hypotension Continue flomax and finasteride (2) Acute blood loss anemia Is this a current diagnosis for this admission?: Yes Plan: Stable. 2/2 hematuria 1 unit PRBC on 10/10/17 (3) Acute encephalopathy Is this a current diagnosis for this admission?: Yes (4) Alzheimer's dementia Qualifiers: Alzheimer's disease onset: other onset Dementia behavioral disturbance: without behavioral disturbance Qualified Code(s): G30.8 - Other Alzheimer's disease; F02.80 - Dementia in other diseases classified elsewhere without behavioral disturbance Is this a current diagnosis for this admission?: Yes Plan: At baseline, patient is unable to do much other than feed himself. He is not normally oriented in any capacity per family reports. Continue haldol, ativan, seroquel Stop aricept (5) Fracture of femoral neck Qualifiers: Encounter type: subsequent encounter Fracture type: closed Laterality: right Fracture healing: with routine healing Qualified Code(s): S72.001D - Fracture of unspecified part of neck of right femur, subsequent encounter for closed fracture with routine healing Is this a current diagnosis for this admission?: Yes Plan: Defer to orthopedics. Did discuss limited rehab potential with his . (6) BPH (benign prostatic hyperplasia) Qualifiers: Lower urinary tract symptom presence: unspecified whether lower urinary tract symptoms present Qualified Code(s): N40.0 - Benign prostatic hyperplasia without lower urinary tract symptoms Is this a current diagnosis for this admission?: Yes Plan: Symptomatic Appreciate urology. Send patient back to [place] with sparks in place if fails voiding trial Continue finasteride and flomax. (7) Hypertension Qualifiers: Hypertension type: essential hypertension Qualified Code(s): I10 - Essential (primary) hypertension Is this a current diagnosis for this admission?: Yes Plan: atenolol with hold paramenter (8) Hypothyroid Qualifiers: Hypothyroidism type: acquired Qualified Code(s): E03.9 - Hypothyroidism, unspecified Is this a current diagnosis for this admission?: Yes Plan: Continue synthroid (9) Pacemaker Is this a current diagnosis for this admission?: Yes (10) Vitamin B 12 deficiency Is this a current diagnosis for this admission?: Yes (11) Do not resuscitate Is this a current diagnosis for this admission?: Yes (12) Hyponatremia Is this a current diagnosis for this admission?: Yes Plan: Mild. Likely 2/2 bladder irrigation Repeat BMP - Time Time Spent with patient: 25-34 minutes Medications reviewed and adjusted accordingly: Yes Anticipated discharge: SNF Within: within 72 hours
[2016-10-12] MEDS: TAMSULOSIN HCL 0.4 MG CAP.SR.24H PO SCH (18:49)
[2016-10-12] MEDS: FINASTERIDE 5 MG TABLET PO SCH (21:14)
[2016-10-12] MEDS: SENNOSIDES/DOCUSATE 8.6-50 MG 1 EACH TABLET PO SCH (21:14)
[2016-10-12] MEDS: QUETIAPINE FUMARATE 25 MG TABLET PO SCH (21:14)
[2016-10-13] MEDS: LEVOTHYROXINE SODIUM 0.05 MG TABLET PO SCH (05:31)
[2016-10-13] MEDS: LEVETIRACETAM 500 MG TABLET PO SCH ×2 (10:02→18:13)
[2016-10-13] MEDS: ATENOLOL 50 MG TABLET PO SCH (10:02)
[2016-10-13] MEDS: DOCUSATE SODIUM 100 MG CAPSULE PO SCH ×2 (10:03→18:13)
--- NOTE | 2016-10-13 14:39 | PDOC PROGRESS REPORT ---
Subjective Progress Note for:: 10/13/16 Subjective:: Patient is unable to provide ROS secondary to dementia. Patient has mild hematuria present at bedside reports he is tough to arouse this am. Arouses at this time. Physical Exam Vital Signs: Temp Pulse Resp BP Pulse Ox 98.1 F 55 L 16 124/68 95 10/13/16 11:46 10/13/16 11:46 10/13/16 11:46 10/13/16 11:46 10/13/16 11:46 Pulse Oximeter Continuous Start: 10/02/16 23: 22 Freq: Status: Complete Document 10/02/16 22:00 [facility] (Rec: 10/02/16 23:24 [facility] [email or web address]) Pulse Oximetry Assessment Oxygen Saturation (92-100) 98 Oxygen Delivery Method Non-Rebreather Fraction of Inspired Oxygen (FIO2) 100 Equipment Usage Initial Set Up Continuous Pulse Oximeter 24 Hour Charge Charge Now Continuous SpO2 Machine # N-6 Pulse Oximeter Continuous Start: 10/03/16 00: 03 Freq: RTQ4 Status: Complete Document 10/07/16 11:07 LDA (Rec: 10/07/16 11:07 LDA [email or web address]) Pulse Oximetry Assessment Equipment Usage Equipment Discontinued Continuous SpO2 Machine # 6 Intake & Output 10/12/16 10/13/16 10/14/16 06:59 06:59 06:59 Intake Total 1550 400 500 Output Total 56529 1200 Balance -49302 -800 500 Weight 68.3 kg 73.3 kg Exam: GENERAL: No acute distress, resting comfortably but arousable HEENT: Conjunctiva clear, nonicteric, moist mucous membranes, no JVD, midline trachea RESPIRATORY: Clear to auscultation bilaterally CARDIAC: Regular rate and rhythm, no murmurs/gallops/rubs ABDOMEN: soft, NTTP, active bowel sounds, no rebound, no rigidity, no guarding : sparks in place draining light red urine EXTREMETIES: no edema, ecchymosis, no cyanosis, no clubbing NEUROLOGIC: cranial nerves grossly intact, moves limbs, unoriented at baseline Results Laboratory Results: 10/12/16 08:04 10/12/16 08:04 10/02/16 10/03/16 10/03/16 23:18 05:47 12:29 Troponin I 0.063 0.066 0.046 Impressions: Cervical Spine CT 10/01/16 14:42 IMPRESSION: No acute fracture or malalignment. Central canal stenosis at C3-4 , bilateral foraminal narrowing at C3-4, C4-5, and C5-6. Head CT 10/01/16 14:42 IMPRESSION: CHRONIC CHANGES OF ATROPHY AND MICROVASCULAR ISCHEMIA. NO ACUTE PROCESS. Chest X-Ray 10/02/16 00:00 IMPRESSION: COPD. No acute findings Lung Scan-VQ NM 10/03/16 00:41 IMPRESSION: No evidence of pulmonary embolus (very low probability). Hip/Pelvis X-Ray 10/03/16 08:00 IMPRESSION: Post right hip replacement in good alignment. KUB X-Ray 10/08/16 00:00 IMPRESSION: NO RADIOGRAPHIC EVIDENCE FOR ACUTE ABDOMINAL DISEASE. Pelvis CT 10/09/16 00:00 IMPRESSION: No pelvic fracture or intrapelvic hematoma. Asymmetric thickening of the right gluteal muscle, question intramuscular small hematoma. Sparks catheter balloon in the bladder. Adjacent blood clot seen as hyperdense material in the urinary bladder. Assessment & Plan - Diagnosis (1) Hematuria Qualifiers: Hematuria type: gross Qualified Code(s): R31.0 - Gross hematuria Is this a current diagnosis for this admission?: Yes Plan: Have discussed case with urology, Dr. Shah and he will see patient Friday for cystoscopy for hematuria. CT pelvis negative for gross abnormality Concern for occult malignancy Unable to tolerate high dose flomax 2/2 hypotension Continue flomax and finasteride Will attempt voiding trial on Friday. NPO after midnight (2) Acute blood loss anemia Is this a current diagnosis for this admission?: Yes Plan: Stable. 2/2 hematuria 1 unit PRBC on 10/10/17 (3) Acute encephalopathy Is this a current diagnosis for this admission?: Yes (4) Alzheimer's dementia Qualifiers: Alzheimer's disease onset: other onset Dementia behavioral disturbance: without behavioral disturbance Qualified Code(s): G30.8 - Other Alzheimer's disease; F02.80 - Dementia in other diseases classified elsewhere without behavioral disturbance Is this a current diagnosis for this admission?: Yes Plan: At baseline, patient is unable to do much other than feed himself. He is not normally oriented in any capacity per family reports. Continue haldol, ativan, seroquel Stop aricept (5) Fracture of femoral neck Qualifiers: Encounter type: subsequent encounter Fracture type: closed Laterality: right Fracture healing: with routine healing Qualified Code(s): S72.001D - Fracture of unspecified part of neck of right femur, subsequent encounter for closed fracture with routine healing Is this a current diagnosis for this admission?: Yes Plan: Defer to orthopedics. Did discuss limited rehab potential with his . (6) BPH (benign prostatic hyperplasia) Qualifiers: Lower urinary tract symptom presence: symptoms present Lower urinary tract symptom detail: urinary retention Qualified Code(s): N40.1 - Benign prostatic hyperplasia with lower urinary tract symptoms; R33.8 - Other retention of urine Is this a current diagnosis for this admission?: Yes Plan: Symptomatic Appreciate urology. Send patient back to [place] with sparks in place if fails voiding trial Continue finasteride and flomax. (7) Hypertension Qualifiers: Hypertension type: essential hypertension Qualified Code(s): I10 - Essential (primary) hypertension Is this a current diagnosis for this admission?: Yes Plan: atenolol with hold paramenter (8) Hypothyroid Qualifiers: Hypothyroidism type: acquired Qualified Code(s): E03.9 - Hypothyroidism, unspecified Is this a current diagnosis for this admission?: Yes Plan: Continue synthroid (9) Pacemaker Is this a current diagnosis for this admission?: Yes (10) Vitamin B 12 deficiency Is this a current diagnosis for this admission?: Yes (11) Hyponatremia Is this a current diagnosis for this admission?: Yes Plan: Mild. Likely 2/2 bladder irrigation Repeat BMP (12) Do not resuscitate Is this a current diagnosis for this admission?: Yes - Time Time Spent with patient: 25-34 minutes Medications reviewed and adjusted accordingly: Yes Anticipated discharge: SNF Within: within 48 hours
[2016-10-13] MEDS: TAMSULOSIN HCL 0.4 MG CAP.SR.24H PO SCH (18:13)
[2016-10-13] MEDS: QUETIAPINE FUMARATE 25 MG TABLET PO SCH (21:25)
[2016-10-13] MEDS: SENNOSIDES/DOCUSATE 8.6-50 MG 1 EACH TABLET PO SCH (21:25)
[2016-10-13] MEDS: FINASTERIDE 5 MG TABLET PO SCH (21:25)
[2016-10-14] MEDS: LEVOTHYROXINE SODIUM 0.05 MG TABLET PO SCH (05:49)
[2016-10-14] MEDS: DOCUSATE SODIUM 100 MG CAPSULE PO SCH ×2 (10:42→18:38)
[2016-10-14] MEDS: ATENOLOL 50 MG TABLET PO SCH (10:43)
[2016-10-14] MEDS: LEVETIRACETAM 500 MG TABLET PO SCH ×2 (10:43→18:36)
--- NOTE | 2016-10-14 16:21 | PDOC PROGRESS REPORT ---
Subjective Progress Note for:: 10/14/16 Subjective:: patient says "I'm feeling fine" Patient is unable to provide ROS secondary to dementia. Patient has mild hematuria present at bedside Patient voided after sparks removed with 300mL left in bladder Physical Exam Vital Signs: Temp Pulse Resp BP Pulse Ox 98.6 F 103 H 18 130/81 H 100 10/14/16 11:24 10/14/16 11:24 10/14/16 11:24 10/14/16 11:24 10/14/16 11:24 Pulse Oximeter Continuous Start: 10/02/16 23: 22 Freq: Status: Complete Document 10/02/16 22:00 [facility] (Rec: 10/02/16 23:24 [facility] [email or web address]) Pulse Oximetry Assessment Oxygen Saturation (92-100) 98 Oxygen Delivery Method Non-Rebreather Fraction of Inspired Oxygen (FIO2) 100 Equipment Usage Initial Set Up Continuous Pulse Oximeter 24 Hour Charge Charge Now Continuous SpO2 Machine # N-6 Pulse Oximeter Continuous Start: 10/03/16 00: 03 Freq: RTQ4 Status: Complete Document 10/07/16 11:07 LDA (Rec: 10/07/16 11:07 LDA [email or web address]) Pulse Oximetry Assessment Equipment Usage Equipment Discontinued Continuous SpO2 Machine # 6 Intake & Output 10/13/16 10/14/16 10/15/16 06:59 06:59 06:59 Intake Total 400 550 Output Total 1200 1725 Balance -800 -1175 Weight 73.3 kg 70.6 kg Exam: GENERAL: No acute distress, awake and alert, HEENT: Conjunctiva clear, nonicteric, moist mucous membranes, no JVD, midline trachea RESPIRATORY: Clear to auscultation bilaterally CARDIAC: Regular rate and rhythm, no murmurs/gallops/rubs ABDOMEN: soft, NTTP, active bowel sounds, no rebound, no rigidity, no guarding EXTREMETIES: no edema, ecchymosis, no cyanosis, no clubbing NEUROLOGIC: cranial nerves grossly intact, moves limbs, unoriented at baseline Results Laboratory Results: 10/12/16 08:04 10/12/16 08:04 10/02/16 10/03/16 10/03/16 23:18 05:47 12:29 Troponin I 0.063 0.066 0.046 Impressions: Cervical Spine CT 10/01/16 14:42 IMPRESSION: No acute fracture or malalignment. Central canal stenosis at C3-4 , bilateral foraminal narrowing at C3-4, C4-5, and C5-6. Head CT 10/01/16 14:42 IMPRESSION: CHRONIC CHANGES OF ATROPHY AND MICROVASCULAR ISCHEMIA. NO ACUTE PROCESS. Chest X-Ray 10/02/16 00:00 IMPRESSION: COPD. No acute findings Lung Scan-VQ NM 10/03/16 00:41 IMPRESSION: No evidence of pulmonary embolus (very low probability). Hip/Pelvis X-Ray 10/03/16 08:00 IMPRESSION: Post right hip replacement in good alignment. KUB X-Ray 10/08/16 00:00 IMPRESSION: NO RADIOGRAPHIC EVIDENCE FOR ACUTE ABDOMINAL DISEASE. Pelvis CT 10/09/16 00:00 IMPRESSION: No pelvic fracture or intrapelvic hematoma. Asymmetric thickening of the right gluteal muscle, question intramuscular small hematoma. Sparks catheter balloon in the bladder. Adjacent blood clot seen as hyperdense material in the urinary bladder. Assessment & Plan - Diagnosis (1) Hematuria Qualifiers: Hematuria type: gross Qualified Code(s): R31.0 - Gross hematuria Is this a current diagnosis for this admission?: Yes (2) Acute blood loss anemia Is this a current diagnosis for this admission?: Yes (3) Acute encephalopathy Is this a current diagnosis for this admission?: Yes (4) Alzheimer's dementia Qualifiers: Alzheimer's disease onset: other onset Dementia behavioral disturbance: without behavioral disturbance Qualified Code(s): G30.8 - Other Alzheimer's disease; F02.80 - Dementia in other diseases classified elsewhere without behavioral disturbance Is this a current diagnosis for this admission?: Yes (5) Fracture of femoral neck Qualifiers: Encounter type: subsequent encounter Fracture type: closed Laterality: right Fracture healing: with routine healing Qualified Code(s): S72.001D - Fracture of unspecified part of neck of right femur, subsequent encounter for closed fracture with routine healing Is this a current diagnosis for this admission?: Yes (6) BPH (benign prostatic hyperplasia) Qualifiers: Lower urinary tract symptom presence: symptoms present Lower urinary tract symptom detail: urinary retention Qualified Code(s): N40.1 - Benign prostatic hyperplasia with lower urinary tract symptoms; R33.8 - Other retention of urine Is this a current diagnosis for this admission?: Yes (7) Hypertension Qualifiers: Hypertension type: essential hypertension Qualified Code(s): I10 - Essential (primary) hypertension Is this a current diagnosis for this admission?: Yes (8) Hypothyroid Qualifiers: Hypothyroidism type: acquired Qualified Code(s): E03.9 - Hypothyroidism, unspecified Is this a current diagnosis for this admission?: Yes (9) Pacemaker Is this a current diagnosis for this admission?: Yes (10) Vitamin B 12 deficiency Is this a current diagnosis for this admission?: Yes (11) Hyponatremia Is this a current diagnosis for this admission?: Yes (12) Do not resuscitate Is this a current diagnosis for this admission?: Yes - Plan Summary Plan Summary: Patient is currently undergoing monitoring of urinary output after removal of Sparks catheter. If hemoglobin is stable and patient continues to urinate without difficulty, will be able to return patient to nursing facility tomorrow without event. Appreciate urology input into this case.
[2016-10-14] MEDS: TAMSULOSIN HCL 0.4 MG CAP.SR.24H PO SCH (18:37)
[2016-10-14] MEDS: SENNOSIDES/DOCUSATE 8.6-50 MG 1 EACH TABLET PO SCH (21:57)
[2016-10-14] MEDS: FINASTERIDE 5 MG TABLET PO SCH (21:57)
[2016-10-14] MEDS: QUETIAPINE FUMARATE 25 MG TABLET PO SCH (21:57)
[2016-10-15] MEDS: LEVOTHYROXINE SODIUM 0.05 MG TABLET PO SCH (05:23)
[2016-10-15] MEDS: LEVETIRACETAM 500 MG TABLET PO SCH (10:42)
[2016-10-15] MEDS: DOCUSATE SODIUM 100 MG CAPSULE PO SCH (10:43)
[2016-10-15] MEDS: ATENOLOL 50 MG TABLET PO SCH (10:43)
--- NOTE | 2016-10-15 11:18 | PDOC TRANSFER SUMMARY ---
General - Admit/Disc Date/PCP Admission Date/Primary Care Provider: 10/01/16 17:28 AVRIL CABA Discharge Date: 10/15/16 - Discharge Diagnosis (1) Fracture of femoral neck Is this a current diagnosis for this admission?: Yes (2) Hematuria Is this a current diagnosis for this admission?: Yes (3) Acute blood loss anemia Is this a current diagnosis for this admission?: Yes (4) Acute encephalopathy Is this a current diagnosis for this admission?: Yes (5) Alzheimer's dementia Is this a current diagnosis for this admission?: Yes (6) BPH (benign prostatic hyperplasia) Is this a current diagnosis for this admission?: Yes (7) Hypertension Is this a current diagnosis for this admission?: Yes (8) Hypothyroid Is this a current diagnosis for this admission?: Yes (9) Pacemaker Is this a current diagnosis for this admission?: Yes (10) Vitamin B 12 deficiency Is this a current diagnosis for this admission?: Yes (11) Hyponatremia Is this a current diagnosis for this admission?: Yes (12) Do not resuscitate Is this a current diagnosis for this admission?: Yes - Additional Information Resuscitation Status: Do Not Intubate Discharge Diet: Regular, Other (Comments) - mechanical soft, thin liquids, 1:1 assist with feeds Discharge Activity: Activity As Tolerated Home Medications: Acetaminophen [Tylenol] 650 mg PO Q4HP PRN 10/01/16 Cyanocobalamin (Vitamin B-12) [Vitamin B-12 Inj 1000 Mcg/1 ml Vial] 1,000 mcg IM .MONTHLY 10/01/16 Finasteride [Proscar 5 mg Tablet] 5 mg PO QHS 10/01/16 Levetiracetam [Keppra 500 mg Tablet] 500 mg PO BID 10/01/16 Nystatin [Mycostatin Topical Powder 15 gm] 1 applic TP BID 10/01/16 Acetaminophen [Tylenol 325 mg Tablet] 650 mg PO Q4HP PRN tablet 10/15/16 Atenolol [Tenormin 50 mg Tablet] 12.5 mg PO DAILY tablet 10/15/16 Docusate Sodium [Colace 100 mg Capsule] 100 mg PO BID capsule 10/15/16 Haloperidol [Haldol 5 mg Tablet] 5 mg PO Q8HP PRN tablet 10/15/16 Levothyroxine Sodium [Synthroid 0.05 mg Tablet] 0.05 mg PO Q6AM tablet Quetiapine Fumarate [Seroquel 25 mg Tablet] 50 mg PO QHS tablet 10/15/16 Sennosides/Docusate 8.6-50 mg [Senna Plus Tablet] 1 each PO QHS tablet Tamsulosin HCl [Flomax 0.4 mg Cap.sr] 0.4 mg PO PCSUPPER cap.sr.24h 10/15/16 History of Present Illness Admission Date/PCP: 10/01/16 17:28 AVRIL CABA History of Present Illness: 76-year-old patient with advanced Alzheimer's dementia who is known to my practice after undergoing left hip hemiarthroplasty for fractured hip. Patient was found at nursing facility on the floor with an unwitnessed fall. Patient had significant pain in the right hip inability to apply weight. Patient was brought to the ER complaining of hip pain and lower extremity pain. After x- ray and once the patient was diagnosed with a displaced right femoral neck fracture. Patient was admitted for surgical intervention. History given by family and alf. Hospital Course Hospital Course: Patient underwent surgery on 10/03/2016 and his postoperative course from a surgical standpoint was unremarkable. Patient was initially started on Xarelto , but developed gross hematuria and Xarelto was stopped on 10/05/16. patient was seen by urology on 10/07/16 and his Diaz catheter was removed. Patient developed acutely urinary retention and required his Diaz catheter to be reinserted. Patient continued to have ongoing hematuria. Urology was reconsulted and continuous bladder irrigation was started. CT of the pelvis was performed at that time which revealed no acute process. Patient did require total of 2 units of blood transfusion for this. Patient's hematuria improved although did not completely resolved. Diaz catheter was removed and patient has been able to urinate without difficulty and without much gross hematuria. This was felt to be secondary to prostatic trauma and concommittant BPH. Patient suffered from some encephalopathy after surgery, but this improved after stopping narcotics. Discussion with patient's reveal the need to trim his medications and his Aricept was stopped. Overall, patient is doing well and stable for transfer to rehab/[facility]. They do understand that there is very limited rehabilitation potential for this patient due to his severe dementia. Physical Exam Vital Signs: Temp Pulse Resp BP Pulse Ox 98.2 F 54 L 20 124/71 100 10/15/16 07:58 10/15/16 07:58 10/15/16 07:58 10/15/16 07:58 10/15/16 07:58 Pulse Oximeter Continuous Start: 10/02/16 23: 22 Freq: Status: Complete Document 10/02/16 22:00 DW (Rec: 10/02/16 23:24 [facility] [email or web address]) Pulse Oximetry Assessment Oxygen Saturation (92-100) 98 Oxygen Delivery Method Non-Rebreather Fraction of Inspired Oxygen (FIO2) 100 Equipment Usage Initial Set Up Continuous Pulse Oximeter 24 Hour Charge Charge Now Continuous SpO2 Machine # [id number] Pulse Oximeter Continuous Start: 10/03/16 00: 03 Freq: RTQ4 Status: Complete Document 10/07/16 11:07 LDA (Rec: 10/07/16 11:07 LDA [email or web address]) Pulse Oximetry Assessment Equipment Usage Equipment Discontinued Continuous SpO2 Machine # 6 Intake & Output 10/14/16 10/15/16 10/16/16 06:59 06:59 06:59 Intake Total 550 1100 Output Total 1725 Balance -1175 1100 Weight 70.6 kg 68.1 kg Exam: GENERAL: No acute distress, awake and alert, HEENT: Conjunctiva clear, nonicteric, moist mucous membranes, no JVD, midline trachea RESPIRATORY: Clear to auscultation bilaterally CARDIAC: Regular rate and rhythm, no murmurs/gallops/rubs ABDOMEN: soft, NTTP, active bowel sounds, no rebound, no rigidity, no guarding EXTREMETIES: no edema, ecchymosis, no cyanosis, no clubbing NEUROLOGIC: cranial nerves grossly intact, moves limbs, unoriented at baseline Results Laboratory Results: 10/12/16 08:04 10/12/16 08:04 10/02/16 10/03/16 10/03/16 23:18 05:47 12:29 Troponin I 0.063 0.066 0.046 Impressions: Cervical Spine CT 10/01/16 14:42 IMPRESSION: No acute fracture or malalignment. Central canal stenosis at C3-4 , bilateral foraminal narrowing at C3-4, C4-5, and C5-6. Head CT 10/01/16 14:42 IMPRESSION: CHRONIC CHANGES OF ATROPHY AND MICROVASCULAR ISCHEMIA. NO ACUTE PROCESS. Chest X-Ray 10/02/16 00:00 IMPRESSION: COPD. No acute findings Lung Scan-VQ NM 10/03/16 00:41 IMPRESSION: No evidence of pulmonary embolus (very low probability). Hip/Pelvis X-Ray 10/03/16 08:00 IMPRESSION: Post right hip replacement in good alignment. KUB X-Ray 10/08/16 00:00 IMPRESSION: NO RADIOGRAPHIC EVIDENCE FOR ACUTE ABDOMINAL DISEASE. Pelvis CT 10/09/16 00:00 IMPRESSION: No pelvic fracture or intrapelvic hematoma. Asymmetric thickening of the right gluteal muscle, question intramuscular small hematoma. Diaz catheter balloon in the bladder. Adjacent blood clot seen as hyperdense material in the urinary bladder. Status: Imported from PACS Transfer Plan - Time Spent with Patient Time spent with patient: Less than 30 Minutes Qualifiers PATEINT BEING DISCHARGED WITH ANY OF THE FOLLOWING DIAGNOSIS?: No Plan Time Spent: Less than 30 Minutes
[2016-10-15 13:56] VITALS: BP 123/75
== END 2016-10-15 14:10 | DRG 469 ==
LOC: ER 13:34 → EH 17:28 → UNDOADMIN 17:31 → 4N 20:00
PROVIDERS: ADMIT Family Medicine; ATTEND Family Medicine
PROC: 5A09357 Assistance with Respiratory Ventilation, Less than 24 Consecutive Hours, Continuous Positive Airway Pressure (ICD-10-PCS; 2016-10-02)
PROC: 0SRR0JA Replacement of Right Hip Joint, Femoral Surface with Synthetic Substitute, Uncemented, Open Approach (ICD-10-PCS; principal; 2016-10-02 16:30)
PROC: 30233N1 Transfusion of Nonautologous Red Blood Cells into Peripheral Vein, Percutaneous Approach (ICD-10-PCS; 2016-10-10)
DX: S72.011A Unspecified intracapsular fracture of right femur, initial encounter for closed fracture (principal); J96.01 Acute respiratory failure with hypoxia; G93.40 Encephalopathy, unspecified; D62 Acute posthemorrhagic anemia; F02.81 Dementia in other diseases classified elsewhere, unspecified severity, with behavioral disturbance; G30.8 Other Alzheimer's disease; W19.XXXA Unspecified fall, initial encounter; Y93.9 Activity, unspecified; Y92.129 Unspecified place in nursing home as the place of occurrence of the external cause; Y99.9 Unspecified external cause status; Z78.1 Physical restraint status; I10 Essential (primary) hypertension; E03.9 Hypothyroidism, unspecified; I25.10 Atherosclerotic heart disease of native coronary artery without angina pectoris; Z66 Do not resuscitate; E53.8 Deficiency of other specified B group vitamins; R31.9 Hematuria, unspecified; N40.0 Benign prostatic hyperplasia without lower urinary tract symptoms; Z79.899 Other long term (current) drug therapy; Z96.642 Presence of left artificial hip joint; Z90.49 Acquired absence of other specified parts of digestive tract; Z95.0 Presence of cardiac pacemaker; Z87.891 Personal history of nicotine dependence; Z88.8 Allergy status to other drugs, medicaments and biological substances
CPT/HCPCS: 01210; 36415; 36430; 36600; 70450; 71010; 72125; 72192; 74000; 78580; 80048; 80053; 81001; 82803; 82962; 83735; 84443; 84484; 85025; 85027; 85379; 86850; 86900; 86901; 86920; 87086; 88304; 88311; 93005; 93010; 94660; 94762; 99285; A9540; C9290; G8978-GP; G8979-GP; J0131; J0690; J1170; J1650; J2060; J2250; J2370; J2704; J3010; J3490; J7030; J7120; P9016; Q9969; S0164

== ENCOUNTER 2016-10-31 20:28 | Emergency (ER) | payer MEDICARE, BC ==
[2016-10-31 21:17] LABS: ABSOLUTE EOSINOPHILS # (AUTO) 0.1 10^3/uL (0.0-0.6); ABSOLUTE LYMPHOCYTES (AUTO) 1.2 10^3/uL (0.5-4.7); ABSOLUTE MONOCYTES (AUTO) 0.8 10^3/uL (0.1-1.4); BASOPHILS % (AUTO) 0.3 % (0-2); EOSINOPHILS % (AUTO) 0.7 % (0-6); HEMOGLOBIN 8.3 g/dL (13.5-17.0); HGB HCT DIFFERENCE -1.1; LYMPHOCYTES % (AUTO) 9.9 % (13-45); MEAN CORPUSCULAR HEMOGLOBIN 27.9 pg (27.0-33.4); MEAN CORPUSCULAR HGB CONC 32.1 g/dL (32.0-36.0); MEAN CORPUSCULAR VOLUME 87 fl (80-97); MONOCYTES % (AUTO) 6.8 % (3-13); RED BLOOD COUNT 2.98 10^6/uL (4.35-5.55); RED CELL DISTRIBUTION WIDTH 16.2 % (11.5-14.0); SEGMENTED NEUTROPHILS % (AUTO) 82.3 % (42-78); WHITE BLOOD COUNT 12.2 10^3/uL (4.0-10.5)
--- NOTE | 2016-10-31 21:28 | RADIOLOGY REPORT (SQ) ---
EXAM DESCRIPTION: CHEST PA/LAT COMPLETED DATE/TIME: 10/31/2016 9:12 pm REASON FOR STUDY: Altered mental status COMPARISON: None. NUMBER OF VIEWS: Two view. TECHNIQUE: Frontal and lateral radiographic views of the chest acquired. LIMITATIONS: None. FINDINGS: LUNGS AND PLEURA: No opacities, masses or pneumothorax. No pleural effusion. Attenuated bl ood vessels and flattened leigh-diaphragms. MEDIASTINUM AND HILAR STRUCTURES: No masses. No contour abnormalities. HEART AND VASCULAR STRUCTURES: Heart normal in size and contour. No evidence for failure. BONES: No acute findings. HARDWARE: Pacemaker. OTHER: No other significant finding. IMPRESSION: COPD. NO ACUTE RADIOGRAPHIC FINDING IN THE CHEST. TECHNICAL DOCUMENTATION: JOB ID: [id number] [employer]- All Rights Reserved
[2016-10-31 21:36] LABS: ALANINE AMINOTRANSFERASE 17 U/L (21-72); ALBUMIN 2.9 g/dL (3.5-5.0); ALKALINE PHOSPHATASE 96 U/L (38-126); ANION GAP 11 (5-19); ASPARTATE AMINO TRANSFERASE 13 U/L (17-59); BILIRUBIN,DIRECT 0.5 mg/dL (0.0-0.4); BILIRUBIN,TOTAL 0.6 mg/dL (0.2-1.3); BLOOD UREA NITROGEN 38 mg/dL (7-20); CALCIUM 9.2 mg/dL (8.4-10.2); CARBON DIOXIDE 27 mmol/L (22-30); CHLORIDE 101 mmol/L (98-107); CREATININE RESULT 1.43 mg/dL (0.52-1.25); GLUCOSE 107 mg/dL (75-110); POTASSIUM 4.7 mmol/L (3.6-5.0); TOTAL PROTEIN 6.1 g/dL (6.3-8.2)
--- NOTE | 2016-10-31 23:06 | ER Document Report ---
ED General - General Chief Complaint: Altered Mental Status Stated Complaint: ALTERED MENTAL STATUS Time Seen by Provider: 10/31/16 20:45 Notes: Patient was transported here from local skilled nursing after being found slumped in his wheelchair. No one is able to say how long he had been in the wheelchair. According to EMS, staff at the skilled nursing said that patient had had a change in his mental status in the past hour. Supposedly, he ate supper had his nightly medications and then did not look right to the staff so they called EMS. Patient resides in the Alzheimer's unit at skilled nursing. Has a history of seizures, but no but he reports seeing a seizure. Patient is on Keppra and his last partial seizure was a week or so ago. Patient's arrived during my initial evaluation. She said he does not look any different than usual to her. She says that he was fine this afternoon when she saw him. Says that he does not talk very much and cannot make any sense of anything he does say. Patient was in this hospital for hip surgery 1 month ago. He has been transferred to this skilled nursing about 2 weeks now. Patient is a DNR patient paperwork is brought with his other report. TRAVEL OUTSIDE OF THE [place] IN LAST 30 DAYS: No - Related Data Allergies/Adverse Reactions: codeine [Codeine] Allergy (Intermediate, Verified 07/14/16 07:25) severe N&V morphine [Morphine] Allergy (Intermediate, Verified 07/14/16 07:25) Hallucinations Past Medical History - Social History Smoking Status: Former Smoker Lives with: Snf Family History: Reviewed & Not Pertinent - Past Medical History Cardiac Medical History: Reports: Hx Hypertension - meds x 4 years Endocrine Medical History: Reports: Hx Hypothyroidism Renal/ Medical History: Reports: Hx Benign Prostatic Hyperplasia - Surgery for BPH. Has had Diaz catheters placed causing excessive bleeding Musculoskeltal Medical History: Reports Hx Arthritis - back Psychiatric Medical History: Reports: Hx Dementia Past Surgical History: Reports: Hx Cardiac Surgery, Hx Cholecystectomy, Hx Herniorrhaphy - bilateral inguinal hernia repair, Hx Inguinal Hernia, Hx Orthopedic Surgery - fx l hip, Hx Pacemaker - 2009, Other - Back surgery, prostate surgery - Immunizations Hx Diphtheria, Pertussis, Tetanus Vaccination: Yes - unsure of date Hx Pneumococcal Vaccination: 02/24/13 Review of Systems - Review of Systems Notes: reviewed systems and provided the following information: REVIEW OF SYSTEMS: CONSTITUTIONAL : Denies fever. EENT: Denies eye, ear, nose or mouth or throat pain or other symptoms. CARDIOVASCULAR: Denies chest pain. RESPIRATORY: Denies cough, chest congestion, or shortness of breath. GASTROINTESTINAL: Denies abdominal pain or nausea, vomiting, or diarrhea. GENITOURINARY: Denies difficulty or painful urinating, urinary frequency, blood in urine. Incontinent of urine and a diaper so no urine obtained to test. MUSCULOSKELETAL: Denies back or neck pain. Denies joint pain or swelling. SKIN: Denies rash or skin lesions. NEUROLOGICAL: See HPI. Patient's says he does not look or act any differently than he normally does for her. They think the skilled nursing may have been understaffed and panicked sending him over here. ALL OTHER SYSTEMS REVIEWED AND NEGATIVE. -: Yes ROS unobtainable due to patient's medical condition Physical Exam - Vital signs Vitals: Resp 16 10/31/16 20:33 Interpretation: Normal - Notes Notes: PHYSICAL EXAMINATION: GENERAL: Well-appearing, in no acute distress. Vital signs are all normal. Patient is basically sleeping at this time. Does not awaken significantly to be moved from stretcher to bed. Does not awaken to questions or tactile stimulation. says this is typical of his normal appearance. HEAD: Atraumatic, normocephalic. ENT: oropharynx clear without exudates. Moist mucous membranes. NECK: Normal range of motion, very supple. LUNGS: Breath sounds clear and equal bilaterally. HEART: Regular rate and rhythm without murmurs. ABDOMEN: Soft, nontender. No guarding or rebound. BACK: No tenderness throughout entire back. EXTREMITIES: Normal range of motion without pain. NEUROLOGICAL: Dementia. Cannot follow commands. Does not answer questions. PSYCH: Normal mood, normal affect. SKIN: Warm, dry, no rashes. Course - Re-evaluation Re-evalutation: 10/31/16 23:16 Patient remained the same throughout his stay. Blood pressure dropped slightly , but the patient was not sweaty or clammy. His hemoglobin is normal. His heart rate remained normal. Patient did have his nighttime medications and that may account for the blood pressure decreased, but I do not think that there is any indication of shock or sepsis, etc. The only abnormality that this patient has at this time on his exam is a white count of 12,200. His chest x-ray is negative. His chemistries are all negative. I do not have a urinalysis, but I do not think that we should catheterize this patient trying to find a source for a white count elevation of hardly 1000. relates the patient has been catheterized several times and developed severe heavy bleeding after being catheterized in the past and she would rather not have a cath urine at this time and I agree with her. He does not have any fever. So at this time, I am going to release him to return to the skilled nursing to return for reevaluation if he develops new or worsening symptoms. - Vital Signs Vital signs: Temp Pulse Resp BP Pulse Ox 99 F 62 17 115/59 L 99 10/31/16 20:45 10/31/16 20:45 10/31/16 22:08 10/31/16 22:08 10/31/16 22:08 - Laboratory Result Diagrams: 10/31/16 20:59 10/31/16 20:59 Laboratory results interpreted by me: 10/31/16 10/31/16 20:59 20:59 WBC 12.2 H RBC 2.98 L Hgb 8.3 L Hct 26.0 L RDW 16.2 H Plt Count 462 H Seg Neutrophils % 82.3 H Lymphocytes % 9.9 L Absolute Neutrophils 10.0 H BUN 38 H Creatinine 1.43 H Est GFR ( Amer) 58 L Est GFR (Non-Af Amer) 48 L Direct Bilirubin 0.5 H AST 13 L ALT 17 L Total Protein 6.1 L Albumin 2.9 L Discharge - Discharge Clinical Impression: Altered mental status Condition: Stable Additional Instructions: Altered Mental Status An altered mental status is a change in the normal functioning of the brain. This alteration of function can range from minor decreased brain function with some forgetfulness and confusion to complete loss of consciousness and coma. There are many possible causes of an altered mental status and include brain injuries such as trauma or strokes, problems with oxygen supply to the brain, fever and infections of the brain and/or elsewhere in the body, metabolic abnormalities such as low or high blood sugar, overdoses or excessive medication ingestion, and mental and psychiatric illnesses. Sometimes the altered mental status resolves and a definite cause is not determined. If a cause for your altered mental status was found, it has likely been corrected. Your evaluation has not shown any condition that requires that you be admitted to the hospital. It is believed that you are safe to leave and return to your home. If you have a return of your symptoms, you should return for re-evaluation. Your evaluation is essentially normal except for very slight elevation of white count. At this time, I do not think this needs to be pursued and we are going to discharge you back to the skilled nursing for ongoing care. At any time, if you develop new or worsening symptoms, we can reevaluate you at that time. FOLLOW-UP CARE: If you have been referred to a physician for follow-up care, call the physician s office for an appointment as you were instructed or within the next two days. If you experience worsening or a significant change in your symptoms, notify the physician immediately or return to the Emergency Department at any time for re-evaluation. Referrals: JENNIFER CARMEN MD [Primary Care Provider] - Follow up as needed
[2016-11-01 02:10] VITALS: BP 107/84
== END 2016-11-01 02:30 ==
LOC: ER 20:28
DX: R41.82 Altered mental status, unspecified (principal)
CPT/HCPCS: 36415; 71020; 80053; 85025; 99285